=== PATIENT | male | born 1935 | race Caucasian/White ===

== ENCOUNTER 2018-04-29 08:51 | Emergency (ER) | payer MEDICARE, OTHER ==
[2018-04-29 09:13] LABS: BASOPHILS % (AUTO) 0.3 %; EOSINOPHILS # (AUTO) 0.1 10^3/uL (0.0-0.7); EOSINOPHILS % (AUTO) 1.3 %; HGB - HEMOGLOBIN 15.4 g/dL (14.0-18.0); LYMPHOCYTES # (AUTO) 2.3 10^3/uL (1.5-3.5); LYMPHOCYTES % (AUTO) 35.5 %; MEAN CORPUSCULAR HEMOGLOBIN 32.5 pg (27.0-31.0); MEAN CORPUSCULAR VOLUME 93.1 fL (80.0-94.0); MEAN PLATELET VOLUME 6.9 fL (7.4-11.4); MONOCYTES # (AUTO) 0.5 10^3/uL (0.0-1.0); MONOCYTES % (AUTO) 7.3 %; NEUTROPHILS # (AUTO) 3.6 10^3/uL (1.5-6.6); NEUTROPHILS % (AUTO) 55.6 %; PLT - PLATELET COUNT 108 10^3/uL (130-450); RED BLOOD COUNT 4.74 10^6/uL (4.70-6.10); RED CELL DISTRIBUTION WIDTH 14.9 % (12.0-15.0); WHITE BLOOD COUNT 6.5 x10^3/uL (4.8-10.8)
[2018-04-29 09:24] LABS: ALBUMIN 4.6 g/dL (3.2-5.5); ALBUMIN/GLOBULIN RATIO 1.8 (1.0-2.2); BILIRUBIN,TOTAL 1.9 mg/dL (0.2-1.0); CALCIUM 9.7 mg/dL (8.5-10.3); CREATININE 1.1 mg/dL (0.6-1.2); TOTAL PROTEIN 7.1 g/dL (6.7-8.2)
[2018-04-29] MEDS ORDERED: SODIUM CHLORIDE 0.9% 1,000 ML IV ONE (09:27)
--- NOTE | 2018-04-29 09:30 | ED Physician Documentation ---
PD HPI CHEST PAIN - Stated complaint Stated Complaint: CHEST PAIN - Chief complaint Chief Complaint: Cardiac - History obtained from History obtained from: Patient, Family - History of Present Illness Timing - onset: How many days ago (3) Timing - onset during: Rest Timing - duration: Seconds, Minutes Timing - details: Abrupt onset, Now resolved Quality: Pressure, Aching Location: Substernal, Left chest, Right chest, Left shoulder/arm, Right shoulder/arm Improved by: Rest Associated symptoms: Shortness of air (not associated with episodes) Similar symptoms before: Diagnosis (angina) Recently seen: Not recently seen - Additional information Additional information: 83-year-old male with a history of CLL and coronary artery disease who is status post stent placement has developed episodes of chest pain in various areas of his chest that are brief in nature lasting seconds to minutes and not associated with movement. He has had multiple episodes over the past 3 days and this morning he had an episode lasting about 10 minutes and he was able to take some nitroglycerin and the pain has resolved. He was last in to see his rn provider relations about 1 year ago where he had a nuclear medicine stress test. He is taking metoprolol and folic acid as the only medications for his illnesses. He reports that he has noted some exertional dyspnea over the past month. Weather outside recently has been extremely cold and the patient has been inside and heated house. Review of Systems Constitutional: denies: Fever, Chills, Myalgias, Fatigue Eyes: denies: Decreased vision Ears: denies: Ear pain Nose: denies: Rhinorrhea / runny nose, Congestion Throat: denies: Sore throat Cardiac: reports: Chest pain / pressure. denies: Palpitations, Pedal edema, Calf pain Respiratory: reports: Dyspnea. denies: Cough, Wheezing GI: denies: Abdominal Pain, Nausea, Vomiting : denies: Dysuria, Frequency Skin: denies: Rash Musculoskeletal: denies: Neck pain, Back pain, Extremity pain, Extremity swelling Neurologic: denies: Generalized weakness, Focal weakness, Numbness PD PAST MEDICAL HISTORY - Past Medical History Past Medical History: Yes Cardiovascular: Hypertension Other Past Medical History: Leukemia - Past Surgical History Past Surgical History: Yes Cardiovascular: Coronary stent - Present Medications Home Medications: Ambulatory Orders Medication Instructions Recorded Confirmed B Complex W-C No.20/Folic Acid 1 mg PO 04/29/18 [Mynephron Capsule] Calcium Carbonate [Calcium] 600 mg PO 04/29/18 RX: Aspirin 81 mg PO DAILY 04/29/18 04/29/18 RX: Metoprolol Tartrate 25 mg PO DAILY 04/29/18 04/29/18 RX: Nitroglycerin 0.4 mg SL Q5MIN PRN #40 tab.subl 04/29/18 RX: Nitroglycerin [Minitran (0.6 04/29/18 MG/HR)] - Allergies Allergies/Adverse Reactions: Allergies Allergy/AdvReac Type Severity Reaction Status Date / Time No Known Drug Allergies Allergy Verified 04/29/18 08:59 - Social History Does the pt smoke?: No Smoking Status: Former smoker Does the pt drink ETOH?: No Does the pt have substance abuse?: No - Immunizations Immunizations are current?: Yes PD ED PE NORMAL - Vitals Vital signs reviewed: Yes (hypertensive and bradycardic) - General General: Alert and oriented X 3, No acute distress, Well developed/nourished - HEENT HEENT: Atraumatic, PERRL, EOMI - Neck Neck: Supple, no meningeal sign, No bony TTP - Cardiac Cardiac: RRR, No murmur - Respiratory Respiratory: No respiratory distress, Other (diminished breath sounds with fine expritory wheeze) - Abdomen Abdomen: Soft, Non tender - Back Back: No CVA TTP, No spinal TTP - Derm Derm: Normal color, Warm and dry, No rash - Extremities Extremities: No deformity, No edema - Neuro Neuro: Alert and oriented X 3, managing partner 2-12 intact, No motor deficit, No sensory deficit, Normal speech Eye Opening: Spontaneous Motor: Obeys Commands Verbal: Oriented GCS Score: 15 - Psych Psych: Normal mood, Normal affect Results - Vitals Vitals: Vital Signs - 24 hr 04/29/18 04/29/18 04/29/18 08:56 09:33 10:58 Temperature 36.5 C Heart Rate 49 L 43 L 44 L Respiratory 16 21 18 Rate Blood Pressure 157/64 H 131/60 H 150/60 H O2 Saturation 100 100 99 04/29/18 04/29/18 04/29/18 11:33 11:38 11:57 Temperature Heart Rate 46 L 46 L 47 L Respiratory 17 16 100 H Rate Blood Pressure 150/58 H 139/59 H 139/56 H O2 Saturation 97 100 12 L 04/29/18 12:09 Temperature Heart Rate 43 L Respiratory 18 Rate Blood Pressure 139/59 H O2 Saturation 100 Oxygen O2 Source Room air - EKG (time done) 0900 Rate: Rate (enter#) (46) Rhythm: Sinus bradycardia Ischemia: Non specific changes Compare to prior EKG: Old EKG unavailable Computer interpretation: Agree with computer - Labs Labs: Laboratory Tests 04/29/18 04/29/18 04/29/18 09:00 09:00 09:00 WBC 6.5 RBC 4.74 Hgb 15.4 Hct 44.1 MCV 93.1 MCH 32.5 H MCHC 35.0 RDW 14.9 Plt Count 108 L MPV 6.9 L Neut # (Auto) 3.6 Lymph # (Auto) 2.3 [place] # (Auto) 0.5 Eos # (Auto) 0.1 Baso # (Auto) 0.0 Absolute Nucleated RBC 0.02 Nucleated RBC % 0.3 Manual Slide Review Indicated WBC Morphology 1+ REACTIVE LYMPHS Sodium 142 Potassium 4.2 Chloride 103 Carbon Dioxide 28 Anion Gap 11.0 BUN 26 H Creatinine 1.1 Estimated GFR (MDRD) 64 L Glucose 67 L Calcium 9.7 Total Bilirubin 1.9 H AST 33 ALT 29 Alkaline Phosphatase 87 Troponin I < 0.04 Total Protein 7.1 Albumin 4.6 Globulin 2.5 Albumin/Globulin Ratio 1.8 Lipase 42 - Rads (name of study) chest 2 views Radiology: Prelim report reviewed (Impression: Mildly coarsened interstitial opacities suggestive of chronic lung disease. No acute cardiopulmonary ab normality.), EMP read indepedently, See rad report Procedures - IVC sono (time) 0920 Bedside IVC sono: IVC measures (cm) (1.12), IVC collapsed c insp (cm) (complete), Dehydration (est 1 liter deficit) PD MEDICAL DECISION MAKING - ED course Complexity details: reviewed results, re-evaluated patient, considered differential, d/w patient, d/w family ED course: Previously well 83-year-old male with a history of coronary artery disease and CLL has developed intermittent chest pains and he has had some exertional dyspnea. I suspect he has stable angina and today he is found to have hypertension on arrival to the emergency department. I suspect his hypertension is related to his dehydration from the fornical organ reflex and he is administered saline. His pressure improves but his symptoms do not. He seems to have periodic short episodes of pain in various places on his chest. He has had a stress test in the last year and he will need follow up with his rn provider relations urgently and he is able to set this up prior to discharge. I am uncertain that his pains are cardiac related. Departure - Departure Disposition: 01 Home, Self Care Clinical Impression: Dehydration, Stable angina Condition: Stable Instructions: ED Chest Pain Angina Stable, ED Dehydration Follow-Up: Moody Currie MD [Primary Care Provider] - Prescriptions: RX: Nitroglycerin 0.4 mg SL Q5MIN PRN #40 tab.subl PRN Reason: chest pain Discharge Date/Time: 04/29/18 12:10
--- NOTE | 2018-04-29 10:07 | XRAY Report ---
Reason: chest pain Procedure Date: 04/29/2018 Accession Number: [id number] / [id number] Procedure: XR - Chest 2 View X-Ray CPT Code: 94432 FULL RESULT: EXAM: CHEST RADIOGRAPHY EXAM DATE: 04/29/2018 09:51 AM. CLINICAL HISTORY: Chest pain. COMPARISON: None. TECHNIQUE: 2 views. FINDINGS: Lungs/Pleura: There are mildly coarsened diffuse bilateral interstitial opacities, particularly at the lung bases. No focal opacities evident. No pleural effusion. No pneumothorax. Normal volumes. Mediastinum: Heart and mediastinal contours are unremarkable. There is mild atherosclerotic calcification of the aortic arch. Other: No acute osseous abnormality. IMPRESSION: Mildly coarsened interstitial opacities suggestive of chronic lung disease. No acute cardiopulmonary abnormality. RADIA
[2018-04-29 12:10] VITALS: BP 139/59
== END 2018-04-29 12:10 | disposition home or self-care (01) ==
LOC: ED 08:51
DX: I25.118 Atherosclerotic heart disease of native coronary artery with other forms of angina pectoris (principal); E86.0 Dehydration; I10 Essential (primary) hypertension; R00.1 Bradycardia, unspecified; R06.2 Wheezing; Z95.5 Presence of coronary angioplasty implant and graft; Z87.891 Personal history of nicotine dependence; Z85.6 Personal history of leukemia
CPT/HCPCS: 36415; 71046; 80053; 83690; 84484; 85025; 93005; 96360; 99283; 99284

== ENCOUNTER 2019-09-02 14:48 | Outpatient (CLI) | payer MEDICARE, OTHER ==
--- NOTE | 2019-09-02 17:09 | XRAY Report ---
PROCEDURE: Abdomen 1 View X-Ray INDICATIONS: HEMATURIA TECHNIQUE: 2 views of the abdomen were acquired. COMPARISON: CXR 04/29/2018. FINDINGS: Surgical changes and devices: None. Bowel: No pneumoperitoneum. Scattered small bowel and colonic gas. No dilated loops of bowel seen. Soft tissues: Small density at the left pelvic brim. No masses; visualized solid organ contours appe ar normal in size. No suspicious abdominal calcifications. Vascular calcifications. Phleboliths in t he pelvis. Bones: No suspicious bony abnormalities. Lung bases appear clear. IMPRESSION: Small density at the left pelvic brim could represent a kidney stone. -Consider further evaluation with CT KUB. Ultrasound could also be performed to evaluate for hydronep hrosis. Reviewed by: Juan David Eubanks MD on 09/02/2019 5:08 PM PDT Approved by: Juan David Eubanks MD on 09/02/2019 5:08 PM PDT Station ID: [id number]
[2019-09-02 20:07] LABS: ABSOLUTE RETICS # AUTO 0.151 10^6/uL (0.020-0.110); BASOPHILS % (AUTO) 0.3 %; EOSINOPHILS # (AUTO) 0.1 10^3/uL (0.0-0.7); EOSINOPHILS % (AUTO) 0.7 %; HGB - HEMOGLOBIN 14.4 g/dL (14.0-18.0); LYMPHOCYTES # (AUTO) 3.7 10^3/uL (1.5-3.5); LYMPHOCYTES % (AUTO) 48.7 %; MEAN CORPUSCULAR HGB CONC 33.5 g/dL (32.0-36.0); MEAN CORPUSCULAR VOLUME 98.6 fL (80.0-94.0); MEAN PLATELET VOLUME 9.5 fL (7.4-11.4); MONOCYTES # (AUTO) 0.5 10^3/uL (0.0-1.0); MONOCYTES % (AUTO) 6.1 %; NEUTROPHILS # (AUTO) 3.3 10^3/uL (1.5-6.6); NEUTROPHILS % (AUTO) 43.8 %; PLT - PLATELET COUNT 96 10^3/uL (130-450); RED BLOOD COUNT 4.36 10^6/uL (4.70-6.10); RED CELL DISTRIBUTION WIDTH 14.6 % (12.0-15.0); WHITE BLOOD COUNT 7.5 x10^3/uL (4.8-10.8)
[2019-09-02 20:14] LABS: ALBUMIN 4.4 g/dL (3.2-5.5); ALBUMIN/GLOBULIN RATIO 2.1 (1.0-2.2); BILIRUBIN,TOTAL 1.4 mg/dL (0.2-1.0); CALCIUM 9.4 mg/dL (8.5-10.3); TOTAL PROTEIN 6.5 g/dL (6.7-8.2)
== END 2019-09-02 23:59 | disposition home or self-care (01) ==
LOC: LAB.S 14:48
PROVIDERS: ATTEND Physician Assistant Medical
DX: R93.89 Abnormal findings on diagnostic imaging of other specified body structures (principal); C91.11 Chronic lymphocytic leukemia of B-cell type in remission; R35.0 Frequency of micturition; R31.9 Hematuria, unspecified
CPT/HCPCS: 36415; 74018; 80053; 85025; 85045; 87086; G0103; 84153

== ENCOUNTER 2021-01-03 11:13 | Inpatient (IN) | payer MEDICARE, OTHER ==
[2021-01-03 11:42] LABS: BASOPHILS % (AUTO) 0.1 %; EOSINOPHILS % (AUTO) 0.1 %; HCT - HEMATOCRIT 43.4 % (42.0-52.0); HGB - HEMOGLOBIN 14.3 g/dL (14.0-18.0); LYMPHOCYTES # (AUTO) 7.8 10^3/uL (1.5-3.5); LYMPHOCYTES % (AUTO) 50.5 %; MEAN CORPUSCULAR HEMOGLOBIN 31.4 pg (27.0-31.0); MEAN CORPUSCULAR HGB CONC 32.9 g/dL (32.0-36.0); MEAN CORPUSCULAR VOLUME 95.4 fL (80.0-94.0); MEAN PLATELET VOLUME 9.3 fL (7.4-11.4); MONOCYTES # (AUTO) 1.8 10^3/uL (0.0-1.0); MONOCYTES % (AUTO) 11.6 %; NEUTROPHILS # (AUTO) 5.6 10^3/uL (1.5-6.6); NEUTROPHILS % (AUTO) 36.3 %; PLT - PLATELET COUNT 67 10^3/uL (130-450); RED BLOOD COUNT 4.55 10^6/uL (4.70-6.10); RED CELL DISTRIBUTION WIDTH 14.8 % (12.0-15.0); WHITE BLOOD COUNT 15.5 x10^3/uL (4.8-10.8)
--- NOTE | 2021-01-03 11:48 | XRAY Report ---
PROCEDURE: Chest 1 View X-Ray INDICATIONS: Chest Pain TECHNIQUE: One view of the chest was acquired. COMPARISON: Chest x-ray 04/29/2018 FINDINGS: Surgical changes and devices: None. Lungs and pleura: No pleural effusions or pneumothorax. Emphysematous changes are present. Mediastinum: Mediastinal contours appear normal. Heart size is normal. Bones and chest wall: No suspicious bony lesions. Overlying soft tissues appear unremarkable. IMPRESSION: No acute pulmonary process. Reviewed by: Anay Jamison MD on 01/03/2021 11:47 AM PDT Approved by: Anay Jamison MD on 01/03/2021 11:47 AM PDT Station ID: [id number]
[2021-01-03 11:57] LABS: ALBUMIN 4.5 g/dL (3.2-5.5); ALBUMIN/GLOBULIN RATIO 2.6 (1.0-2.2); BILIRUBIN,TOTAL 1.6 mg/dL (0.2-1.0); CALCIUM 9.2 mg/dL (8.5-10.3); POTASSIUM 3.8 mmol/L (3.5-5.0); TOTAL PROTEIN 6.2 g/dL (6.7-8.2)
[2021-01-03 12:32] LABS: DIFFERENTIAL COMMENT MANUAL=AUTO DIFF; PLATELET ESTIMATE, MANUAL DECREASED (<130,000) (NORMAL); PLATELET MORPHOLOGY NORMAL APPEARANCE (NORMAL); RBC MORPHOLOGY (MULTIPLE) NORMAL APPEARANCE (NORMAL); WBC MORPHOLOGY (MULTIPLE) 1+ SMUDGE CELLS (NORMAL)
--- NOTE | 2021-01-03 12:34 | ED Physician Documentation ---
History of Present Illness - Stated complaint Stated Complaint: CHEST PX - Chief complaint Chief Complaint: Cardiac - History obtained from History obtained from: Patient - History of Present Illness Timing: Yesterday Pain level max: 6 Pain level now: 4 - Additonal information Additional information: Patient is an 86-year-old male who presents to the emergency department complaint of epigastric abdominal pain. He states that sometimes the pain hurts up high in his stomach, sometimes it hurts down low by his bladder. Patient states that the discomfort has been constant. He states that occasionally does radiate up towards the chest. Nothing seems to make it better or worse. No change with nitroglycerin. No change with Maalox or Mylanta. No nausea, vomiting, or constipation. Small diarrhea yesterday He states he has had similar episodes of the pain in the past, but they did not last this long and went away on their own. Does not feel like his cardiac chest pain. Denies any urinary symptoms. Review of Systems Ten Systems: 10 systems reviewed and negative Constitutional: denies: Fever, Chills Respiratory: denies: Cough GI: denies: Vomiting, Constipation, Hematemesis, Bloody / black stool : denies: Dysuria Skin: denies: Rash Musculoskeletal: denies: Neck pain, Back pain Neurologic: denies: Headache PD PAST MEDICAL HISTORY - Past Medical History Past Medical History: Yes Cardiovascular: Hypertension Respiratory: None Neuro: None Endocrine/Autoimmune: None GI: None : None HEENT: None Psych: None Musculoskeletal: None Derm: None - Past Surgical History Past Surgical History: Yes Cardiovascular: Coronary stent - Present Medications Home Medications: Ambulatory Orders Medication Instructions Recorded Confirmed Aspirin 81 mg PO DAILY 04/29/18 01/04/21 B Complex W-C No.20/Folic Acid 1 cap PO DAILY 04/29/18 01/04/21 [Mynephron Capsule] Calcium Carbonate [Calcium] 600 mg PO DAILY 04/29/18 01/04/21 Metoprolol Tartrate 25 mg PO DAILY 04/29/18 01/04/21 Nitroglycerin 0.4 mg SL Q5MIN PRN #40 tab.subl 04/29/18 01/04/21 Atorvastatin Calcium [Lipitor] 80 mg PO QPM 01/04/21 01/04/21 Multivitamin 1 tab PO DAILY 01/04/21 01/04/21 - Allergies Allergies/Adverse Reactions: Allergies Allergy/AdvReac Type Severity Reaction Status Date / Time No Known Drug Allergies Allergy Verified 01/03/21 11:19 - Social History Does the pt smoke?: No Smoking Status: Never smoker Does the pt drink ETOH?: No Does the pt have substance abuse?: No - Immunizations Immunizations are current?: Yes PD ED PE NORMAL - Vitals Vital signs reviewed: Yes - General General: Alert and oriented X 3, No acute distress, Well developed/nourished - HEENT HEENT: PERRL, Moist mucous membranes - Neck Neck: Supple, no meningeal sign - Cardiac Cardiac: RRR - Respiratory Respiratory: No respiratory distress, Clear bilaterally - Abdomen Abdomen: Normal bowel sounds, Soft, Non distended, Other (Mild tenderness to palpation left lower quadrant, mild tenderness to palpation right upper quadrant. No peritoneal signs) - Back Back: No spinal TTP - Derm Derm: Warm and dry - Extremities Extremities: No edema, No calf tenderness / cord - Neuro Neuro: Alert and oriented X 3 - Psych Psych: Normal mood, Normal affect Results - Vitals Vitals: Oxygen O2 Source Room air - EKG (time done) 1116 Rate: Rate (enter#) (71) Rhythm: NSR [place]: Normal Intervals: Normal PA QRS: Normal Ischemia: Non specific changes Compare to prior EKG: Unchanged from prior EKG - Labs Labs: Laboratory Tests 01/03/21 01/03/21 01/03/21 11:35 11:35 11:35 WBC 15.5 H RBC 4.55 L Hgb 14.3 Hct 43.4 MCV 95.4 H MCH 31.4 H MCHC 32.9 RDW 14.8 Plt Count 67 L MPV 9.3 Neut # (Auto) 5.6 Lymph # (Auto) 7.8 H Winkler # (Auto) 1.8 H Eos # (Auto) 0.0 Baso # (Auto) 0.0 Absolute Nucleated RBC 0.00 Band Neuts % (Manual) Not Reportable Abnorm Lymph % (Manual) Not Reportable Nucleated RBC % 0.0 Neutrophils # (Manual) Not Reportable Lymphocytes # (Manual) Not Reportable Monocytes # (Manual) Not Reportable Eosinophils # (Manual) Not Reportable Basophils # (Manual) Not Reportable Differential Comment MANUAL=AUTO DIFF WBC Morphology 1+ SMUDGE CELLS Platelet Estimate DECREASED (<130,000) Platelet Morphology NORMAL APPEARANCE RBC Morph Micro Appear NORMAL APPEARANCE Sodium 142 Potassium 3.8 Chloride 106 Carbon Dioxide 28 Anion Gap 8.0 BUN 15 Creatinine 1.0 Estimated GFR (MDRD) 71 L Glucose 115 H Calcium 9.2 Total Bilirubin 1.6 H AST 24 ALT 20 Alkaline Phosphatase 107 Troponin I High Sens 12.4 Total Protein 6.2 L Albumin 4.5 Globulin 1.7 L Albumin/Globulin Ratio 2.6 H Lipase 28 Nasal Adenovirus (PCR) Nasal B. parapertussis DNA (PCR) Nasal Coronavir 229E PCR Nasal Coronavir HKU1 PCR Nasal Coronavir NL63 PCR Nasal Coronavir OC43 PCR Nasal Enterovir/Rhinovir PCR Nasal Influenza B PCR Nasal Influenza A PCR Nasal Parainfluen 1 PCR Nasal Parainfluen 2 PCR Nasal Parainfluen 3 PCR Nasal Parainfluen 4 PCR Nasal RSV (PCR) Nasal B.pertussis DNA PCR Nasal C.pneumoniae (PCR) Mohit Human Metapneumo PCR Nasal M.pneumoniae (PCR) Nasal SARS-CoV-2 (PCR) 01/03/21 14:20 WBC RBC Hgb Hct MCV MCH MCHC RDW Plt Count MPV Neut # (Auto) Lymph # (Auto) Winkler # (Auto) Eos # (Auto) Baso # (Auto) Absolute Nucleated RBC Band Neuts % (Manual) Abnorm Lymph % (Manual) Nucleated RBC % Neutrophils # (Manual) Lymphocytes # (Manual) Monocytes # (Manual) Eosinophils # (Manual) Basophils # (Manual) Differential Comment WBC Morphology Platelet Estimate Platelet Morphology RBC Morph Micro Appear Sodium Potassium Chloride Carbon Dioxide Anion Gap BUN Creatinine Estimated GFR (MDRD) Glucose Calcium Total Bilirubin AST ALT Alkaline Phosphatase Troponin I High Sens Total Protein Albumin Globulin Albumin/Globulin Ratio Lipase Nasal Adenovirus (PCR) NOT DETECTED Nasal B. parapertussis DNA (PCR) NOT DETECTED Nasal Coronavir 229E PCR NOT DETECTED Nasal Coronavir HKU1 PCR NOT DETECTED Nasal Coronavir NL63 PCR NOT DETECTED Nasal Coronavir OC43 PCR NOT DETECTED Nasal Enterovir/Rhinovir PCR NOT DETECTED Nasal Influenza B PCR NOT DETECTED Nasal Influenza A PCR NOT DETECTED Nasal Parainfluen 1 PCR NOT DETECTED Nasal Parainfluen 2 PCR NOT DETECTED Nasal Parainfluen 3 PCR NOT DETECTED Nasal Parainfluen 4 PCR NOT DETECTED Nasal RSV (PCR) NOT DETECTED Nasal B.pertussis DNA PCR NOT DETECTED Nasal C.pneumoniae (PCR) NOT DETECTED Mohit Human Metapneumo PCR NOT DETECTED Nasal M.pneumoniae (PCR) NOT DETECTED Nasal SARS-CoV-2 (PCR) NOT DETECTED - Rads (name of study) Chest x-ray Radiology: Final report received, EMP read contemporaneously, See rad report (No acute abnormality) CT abd/pelvis Radiology: Final report received, EMP read contemporaneously, See rad report RUQ US Radiology: Final report received, EMP read contemporaneously, See rad report PD MEDICAL DECISION MAKING - ED course Complexity details: reviewed results, re-evaluated patient, considered differential (No ST elevation [place], no aortic dissection, no PE, no tension pneumothorax, no aortic aneurysm), d/w patient, d/w employment consultant ED course: 86-year-old male with epigastric and right upper quadrant pain. Also had some lower abdominal pain. Leukocytosis on laboratory testing. CT and ultrasound are both concerning for cholecystitis. Consulted Dr. Nowak, general surgery on- call, Dr. Bullard (gen surg) came and did the consult as he was free at the moment. He recommends admitting the patient to the hospitalist for IV antibiotics and to determine if the patient would be a good surgical candidate o r not for his cholecystitis. Discussed the case with Dr. Marie, hospitalist who accepts After this plan, Dr. Nowak did come and evaluate the patient in the emergency department and decided to take him to the operating room tonight. This document was made in part using voice recognition software. While efforts are made to proofread this document, sound alike and grammatical errors may occur. CT ABD/PELVIS 1. The gallbladder is distended. No radiopaque gallstones. There is pericholecystic fluid collection. The CT finding may be secondary to acute cholecystitis. Recommend clinical correlation. If clinically indicated, ultrasound may be helpful. 2. There is a 1.5 cm enhancing nodule adjacent to the gallbladder, likely an enlarged lymph node. Mildly enlarged periportal lymph nodes are also identified. The finding is nonspecific and most likely reactive. 3. Punctate calcifications of pancreas suggesting chronic pancreatitis. 4. Mild diverticulosis without diverticulitis. 5. Transitional anatomy in lumbar spine. 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 Degenerative changes in noted in lumbar spine. Right upper quadrant ultrasound: 1.Irregular appearance of the gallbladder, concerning for acute cholecystitis. Departure - Departure Disposition: ED Transfer to [facility] Clinical Impression: Acute cholecystitis Condition: Stable Discharge Date/Time: 01/03/21 18:50
[2021-01-03] MEDS ORDERED: IOVERSOL 320 100 ML VIAL IVP ONE ×2 (12:53→13:53)
[2021-01-03] MEDS ORDERED: PIPERACILLIN/TAZOBACTAM 3.375 GM in SODIUM CHLORIDE 0.9% MINIBAG 100 ML IV STA (14:07)
[2021-01-03] MEDS ORDERED: SODIUM CHLORIDE 0.9% 1,000 ML IV STA (14:07)
--- NOTE | 2021-01-03 14:15 | CT Report ---
PROCEDURE: Abdomen/Pelvis W INDICATIONS: LLQ abd pain CONTRAST: IV CONTRAST: Optiray 320 ml: 100 PO CONTRAST: *NO PO CONTRAST TECHNIQUE: After the administration of contrast, 5 mm thick sections acquired from the diaphragms to the sym physis. 5 mm thick coronal and sagittal reformats were acquired. For radiation dose reduction, the following was used: automated exposure control, adjustment of mA and/or kV according to patient size . COMPARISON: None. FINDINGS: Image quality: Excellent. ABDOMEN: Lung bases: No acute pulmonary opacities. Bilateral lower lobe interstitial thickening and subpleural scars and atelectasis. No pleural effusions. Heart size is normal. Solid organs: Liver is normal in size. There is increased enhancement in liver adjacent to the gall bladder fossa, probably related to hyperemia. Multiple low-density nodules are present in the liver, most likely hepatic cysts. Spleen is mildly enlarged measuring 13.5 cm in length. Gallbladder is distended. No radiopaque gallstones. There is a small amount of pericholecystic fluid collection. There is a 1.5 cm enhancing nodule adjacent to the gallbladder more likely mildly enlarg ed lymph node. Biliary system is non dilated. Punctate calcifications in pancreas consistent with chronic pancreatitis. Pancreas enhances normally. Bilateral adrenal thickening. No adrenal nodules. Kidneys demonstrate normal size and enhancement, w ithout hydronephrosis. Peritoneum and bowel: Bowel loops demonstrate normal wall thickness and caliber. There are a few co lonic diverticula. No CT findings to suggest acute diverticulitis. No free air. Nodes and vessels: There is a 1.3 x 1.9 cm periportal lymph node (series 3 image 21). A couple of s maller peripancreatic lymph nodes are also noted (series 6 image 21). Aorta and inferior vena cava a re normal in size. Severe atherosclerotic calcifications. Miscellaneous: No ventral hernias. PELVIS: Genitourinary: Bladder wall thickness is normal. Miscellaneous: No inguinal hernias with multiple small lymph nodes are identified, likely reactive. Bones: No suspicious bony lesions. No vertebral body compression fractures. Mild scoliosis. Degene rative changes are noted in the lumbar spine. Transitional anatomy with sacralization of L5 There is grade 1 anterolisthesis of L4 on L5 related to L4 pars defects. IMPRESSION: 1. The gallbladder is distended. No radiopaque gallstones. There is pericholecystic fluid collection. The CT finding may be secondary to acute cholecystitis. Recommend clinical correlation. If clinicall y indicated, ultrasound may be helpful. 2. There is a 1.5 cm enhancing nodule adjacent to the gallbladder, likely an enlarged lymph node. Mil dly enlarged periportal lymph nodes are also identified. The finding is nonspecific and most likely r eactive. 3. Punctate calcifications of pancreas suggesting chronic pancreatitis. 4. Mild diverticulosis without diverticulitis. 5. Transitional anatomy in lumbar spine. Grade 1 anterolisthesis of L4 on L5 secondary to pars defect s. Degenerative changes in noted in lumbar spine. The result was discussed with Dr. Keller. Reviewed by: Jessica Borrero MD on 01/03/2021 2:14 PM PDT Approved by: Jessica Borrero MD on 01/03/2021 2:14 PM PDT Station ID: [id number]
--- NOTE | 2021-01-03 15:01 | Ultrasound Report ---
PROCEDURE: Abdomen Limited INDICATIONS: RUQ abd pain TECHNIQUE: Real-time focused scanning was performed of the abdomen, with image documentation. COMPARISON: Reference is made to the CT abdomen of same day. TECHNIQUE: Sonographic evaluation of the abdomen was performed. Evaluation was targeted in the right upper quadrant. FINDINGS: AORTA: The visualized abdominal aorta is normal. IVC: The visualized IVC is normal. LIVER: The liver is normal in size and contour. No significant abnormality. Scattered hypoechoic le sions are seen, which demonstrate increased through transmission and are most consistent with cysts. The largest cyst is seen in the left hepatic lobe and measures up to 2.8 cm. PANCREAS: The visualized portions of the pancreas are normal. Gallbladder and biliary tree: Hydropic appearance of the gallbladder. Gallbladder wall thickening i s seen with trace pericholecystic fluid. A 6.8 mm luminal, echogenic focus is seen, most consistent w ith a polyp. Sludge is seen in the dependent portion of the gallbladder. The common bile duct measures up to 8.3 mm. RIGHT KIDNEY: Normal in appearance with no hydronephrosis. Measuring 10.6 cm in craniocaudal dimens ion. The renal cortex thickness measures 1.3 cm. No ascites. IMPRESSION: 1.Irregular appearance of the gallbladder, concerning for acute cholecystitis. Reviewed by: Jaison Cantor MD on 01/03/2021 2:59 PM PDT Approved by: Jaison Cantor MD on 01/03/2021 2:59 PM PDT Station ID: [id number]
--- NOTE | 2021-01-03 15:16 | CONSULTATION NOTE ---
Referring Provider Consult Date: 01/03/21 History of Present Illness - History Obtained From Records Reviewed: yes. very little available History obtained from: pt Exam Limitations: none - History of Present Illness HPI Comment/Other: Acute onset upper abdominal pain yesterday followed by n/v. No prior similar symptoms. Better today. He has history of copd and CAD. He has been seen prior at [facility] for angina. His emergency telecommunications dispatcher Dr Espinosa at [facility] has retired. He does not know the results of past stress tests. He has history of cardiac stents, bladder cancer, CLL. 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 History - Past Medical History Cardiovascular: reports: Hypertension Respiratory: reports: None Neuro: reports: None Endocrine/Autoimmune: reports: None GI: reports: None : reports: None HEENT: reports: None Psych: reports: None Musculoskeletal: reports: None Derm: reports: None MRSA Hx?: No - Past Surgical History Cardiovascular: reports: Coronary stent Meds/Allgy - Home Medications Home Medications: Ambulatory Orders Medication Instructions Recorded Confirmed Aspirin 81 mg PO DAILY 04/29/18 04/29/18 B Complex W-C No.20/Folic Acid 1 mg PO 04/29/18 [Mynephron Capsule] Calcium Carbonate [Calcium] 600 mg PO 04/29/18 Metoprolol Tartrate 25 mg PO DAILY 04/29/18 04/29/18 Nitroglycerin 0.4 mg SL Q5MIN PRN #40 tab.subl 04/29/18 Nitroglycerin [Minitran (0.6 04/29/18 MG/HR)] - Allergies Allergies/Adverse Reactions: Allergies Allergy/AdvReac Type Severity Reaction Status Date / Time No Known Drug Allergies Allergy Verified 01/03/21 11:19 Review of Systems - Other Findings Other Findings: 10 pt ros as above otherwise unremarkable. Exam - Vital Signs Reviewed Vital Signs: Yes Vital Signs: Vital Signs x48h Temp Pulse Resp BP Pulse Ox 01/03/21 12:02 48 L 21 148/60 H 100 01/03/21 11:19 36.6 C 54 L 22 143/57 H 100 - Physical Exam General Appearance: positive: No acute distress, Alert Eyes Bilateral: positive: PERRL, EOMI, No scleral icterus ENT: positive: No signs of dehydration Neck: positive: No JVD Respiratory: positive: No respiratory distress, Other (clear) Cardiovascular: positive: Bradycardia, Other Abdomen: positive: No distention, Other (minimal upper abdominal tenderness. benign abdomen) Neurologic/Psychiatric: positive: Oriented x3 Conclusion/Plan - Problem List (1) Acute cholecystitis Conclusion/Plan: He currently is not a [facility]. Fortunately he does not need urgent surgery. Much of his care has been through [facility]. Prior to considering surgery cardiology records would need to be reviewed. He feels better and will likely continue to feel better with medical management with light mostly liquid diet. Low fat diet for a couple weeks. Antibiotics. He states he has an appointment scheduled with a new emergency telecommunications dispatcher. Ideally he should see a surgeon through [facility] where he has had his cardiac care. If he is improving this may be done as an outpatient. If he improves and his pain c omes back I recommend he go to the ED at [facility]. This is discussed with him and his . - Lab Results Fish Bones: 01/03/21 11:35 01/03/21 11:35 - Diagnostic Imaging Results Diagnostic Imaging Results: positive: Read independently (inflammed gallbladder and sludge)
[2021-01-03 15:43] LABS: B. PARAPERTUSSIS- RESP PCR PAN NOT DETECTED; B. PERTUSSIS- RESP PCR PANEL NOT DETECTED; C. PNEUMONIAE- RESP PCR PANEL NOT DETECTED; CORONAVIRUS 229E-RESP PCR NOT DETECTED; CORONAVIRUS HKU1-RESP PCR NOT DETECTED; CORONAVIRUS NL63-RESP PCR NOT DETECTED; CORONAVIRUS OC43-RESP PCR NOT DETECTED; HUMAN METAPNEUMOVIRUS NOT DETECTED; INFLUENZA A- RESP PCR PANEL NOT DETECTED; INFLUENZA B - RESP PCR PANEL NOT DETECTED; M. PNEUMONIAE- RESP PCR PANEL NOT DETECTED; PARAINFLUENZA VIRUS 1 NOT DETECTED; PARAINFLUENZA VIRUS 2 NOT DETECTED; PARAINFLUENZA VIRUS 3 NOT DETECTED; PARAINFLUENZA VIRUS 4 NOT DETECTED; RHINOVIRUS/ENTEROVIRUS NOT DETECTED; RSV- RESP PCR PANEL NOT DETECTED; SARS-CoV-2 -RESP PCR PANEL NOT DETECTED
[2021-01-03] MEDS: PIPERACILLIN/TAZOBACTAM 3.375 GM in SODIUM CHLORIDE 0.9% MINIBAG 100 ML IV SCH ×2 (16:10→18:00)
[2021-01-03] MEDS: SODIUM CHLORIDE 0.9% 1,000 ML IV SCH (16:10)
[2021-01-03] MEDS ORDERED: NITROGLYCERIN SL 0.4 MG TABLET SL PRN (16:57)
--- NOTE | 2021-01-03 17:04 | HISTORY & PHYSICAL EXAMINATION ---
Chief Complaint - Chief Complaint Chief Complaint: right upper epigastric pain History of Present Illness - Admitted From Admitted From:: ER - History Obtained From Records Reviewed: [facility] History obtained from: pt Exam Limitations: no - History of Present Illness HPI Comment/Other: This is an 86-year-old male with A past medical history significant for hypertension, COPD, angina, CAD, Bladder cancer and CLL, who presents to the emergency department complaint of right upper epigastric abdominal pain. Pt report his pain located at right upper quadrant, pain sometimes was up to his stomach, up to his chest and even up to his bilateral shoulders, also sometimes pain hurts down by his bladder. His upper epigastric pain was not change with nitroglycerin. He denies fever, chill, nausea, vomiting, or constipation. He report he had small diarrhea on yesterday. CT and ultrasound of abdomen concern acute cholecystitis. Pt report his [employer] Dr. Espinosa made clear for him to have operation for his bladder cancer a few months ago. Pt had recent ECHO study which show EF was reserved at 54%. stress test on this year show stable. Discussed the case with surgeon, Dr. Nowak, she plan to have surgery on this afternoon for pt. Routine laboratory tests show patient had elevated WBC 15.5. Troponin is 12.4, and negative for PR, EKG did not show ischemic change. Patient is afebrile, heart rate is 54, otherwise patient is hemodynamic stable. ER already had Zosyn for pt. Discussed the care goal with the patient, patient hope to have full code. History - Past Medical History Cardiovascular: reports: Hypertension Respiratory: reports: None Neuro: reports: None Endocrine/Autoimmune: reports: None GI: reports: None : reports: None HEENT: reports: None Psych: reports: None Musculoskeletal: reports: None Derm: reports: None MRSA Hx?: No - Past Surgical History Cardiovascular: reports: Coronary stent - Family & Social History Family History: Mother: , Father: Family History Comment/Other: Patient report his father at age between 80- 90, his father have history of hepatitis. His mother at similar age 80-90, he is unknown in detail his mother medical condition beside she had cataract Social History Notes: Patient reported he quit cigarette smoking at his age 40, he denies alcohol or drug issue. Meds/Allgy - Home Medications Home Medications: Ambulatory Orders Medication Instructions Recorded Confirmed Aspirin 81 mg PO DAILY 04/29/18 04/29/18 B Complex W-C No.20/Folic Acid 1 mg PO 04/29/18 [Mynephron Capsule] Calcium Carbonate [Calcium] 600 mg PO 04/29/18 Metoprolol Tartrate 25 mg PO DAILY 04/29/18 04/29/18 Nitroglycerin 0.4 mg SL Q5MIN PRN #40 tab.subl 04/29/18 Nitroglycerin [Minitran (0.6 04/29/18 MG/HR)] - Allergies Allergies/Adverse Reactions: Allergies Allergy/AdvReac Type Severity Reaction Status Date / Time No Known Drug Allergies Allergy Verified 01/03/21 11:19 Review of Systems - Constitutional Constitutional: denies: Fever, Chills - Eyes Eyes: denies: Pain, Field loss, Vision loss - Ears, Nose & Throat Ears, Nose & Throat: denies: Ear pain - Cardiovascular Cariovascular: denies: Chest pain, Lightheadedness, Syncope, Exertional dyspnea, Decr. exercise tolerance - Respiratory Respiratory: denies: Cough, SOB at rest, SOB with exertion - Gastrointestinal Gastrointestinal: reports: Abdominal pain, Diarrhea. denies: Constipation, Nausea, Vomiting - Genitourinary Genitourinary: denies: Dysuria - Musculoskeletal Musculoskeletal: denies: Muscle pain - Integumentary Integumentary: denies: Rash - Neurological Neurological: denies: General weakness, Focal weakness, Headache, Dizziness, Numbness, Abnormal gait, Seizures, Incoordination, Slurred speech - Psychiatric Psychiatric: denies: Depression Exam - Vital Signs Vital Signs: Vital Signs x48h Temp Pulse Resp BP Pulse Ox 01/03/21 12:02 48 L 21 148/60 H 100 01/03/21 11:19 36.6 C 54 L 22 143/57 H 100 - Physical Exam General Appearance: positive: No acute distress, Alert. negative: Lethargic Eyes Bilateral: positive: Normal inspection, PERRL, No lid inflammation ENT: positive: ENT inspection nml, No signs of dehydration. negative: Purulent nasal drainage Neck: positive: Nml inspection, Trachea midline. negative: Thyromegaly, Tracheal deviation Respiratory: positive: Chest non-tender, No respiratory distress. negative: Wheezes, Rales Cardiovascular: positive: Regular rate & rhythm, No murmur. negative: Tachycardia, Bradycardia, Systolic murmur, Diastolic murmur Peripheral Pulses: positive: 2+ Abdomen: positive: Non-tender, Nml bowel sounds, No distention, Tenderness Back: positive: Nml inspection Skin: positive: Color nml, Warm, Dry. negative: Cyanosis Extremities: positive: Non-tender, Full ROM, Nml appearance. negative: Calf tenderness Neurologic/Psychiatric: positive: Oriented x3, Motor nml, Sensation nml. negative: Weakness, Sensory loss, Facial droop, Slurred/abnml speech, Depressed mood/affect Conclusion/Plan - Problem List (1) Acute cholecystitis Conclusion/Plan: Patient present right upper quadrant pain and radiated to bilaterally shoulders. CT and ultrasound both concern acute cholecystitis. pt had elevated WBC but he has no fever. ER already started with Zosyn, we will continue. consult with GI surgeon, plan to have Cholecystectomy on today afternoon. 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 Espinosa cleared for pt to have bladder cancer surgery at this year. pt's recently ECHO show EF is reserved 54%, and stress test showed stable. today troponin is at normal arrange, EKG did not show acute Ischemic change. pt has hx of CAD, likely pt has stable angina in the past. Revised cardiac risk index per Vu criteria show Estimated risk of adverse outcome with noncardiac surgery is low risk. Estimated PR, pulmonary edema, ventricular fibrillation, cardiac arrest or complete heart block is 0.9%. (3) Hx of bladder cancer Conclusion/Plan: Patient has a history of bladder cancer, he reported he had appointment next week Friday To see his oncologist. Advised patient continue follow-up. Now patient can urinate and stable. will order UA (4) Hx of chronic lymphocytic leukemia Conclusion/Plan: Stable, patient may continue follow-up his oncologist. He is elevated WBC which is likely reactive from his infection, acute cholecystitis. (5) HTN (hypertension) Conclusion/Plan: we will hold his Metoprolol, since his HR is at low arrange, Add hydralazine as needed. (6) Hx of coronary artery disease Conclusion/Plan: Patient's upper abdominal pain, and bilateral shoulder pain are likely caused by his acute Cholecystitis. EKG and troponin are negative for PR. pt had recently ECHO study show reserved EF and stress test was stable. resume home aspirin, continue tele monitor and vital monitor. (7) COPD (chronic obstructive pulmonary disease) Conclusion/Plan: pt report he took inhaler PRN at home, no home oxygen needed. pt has 100% O2 sats on room air. pt is stable, no acute respiratory distress. - Lab Results Fish Bones: 01/03/21 11:35 01/03/21 11:35 Core Measures - Anticipated LOS I expect patient to be DC'd or transferred within 96 hours.: Yes - DVT/VTE - Prophylaxis VTE/DVT Device ordered at admit?: Yes VTE/DVT Prophylaxis med ordered at admit?: Yes
[2021-01-03] MEDS ORDERED: PROPOFOL 200 MG/20 ML VIAL IVP ONE (17:13)
[2021-01-03] MEDS ORDERED: LIDOCAINE-MPF 2% 5 ML VIAL ONE (17:13)
--- NOTE | 2021-01-03 17:13 | HISTORY & PHYSICAL EXAMINATION ---
HPI - Admitted From Admitted from: ED - History Obtained From Records Reviewed: Old records reviewed History obtained from: Patient Exam limitations: No limitations - History of Present Illness Pain/Problem Location Description: RUQ pain Severity at the worst: reports: Moderate Pain Quality: reports: Sharp, Dull, Aching Context-Pain started w/: reports: Movement, Palpation, Position Timing: reports: Abrupt onset, Constant Duration: reports: Days: (1) HPI Comment/Other: Acute onset upper abdominal pain yesterday followed by n/v. No prior similar symptoms. Better today. He has history of copd and CAD. He has been seen prior at [facility] for angina. His smt technician Dr Espinosa at [facility] has retired. He does not know the results of past stress tests. He has history of cardiac stents, bladder cancer, CLL. 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 Mr. Butcher has had pain for approximately 24 hours now. In the interim, since he was seen by my partner Dr. Bullard, we have received more information regarding his past medical history and past surgical history as well as his cardiac history. He had bladder surgery 1 year ago and did well. He was last seen by his smt technician this past August and had a stress test that did not show ischemia and showed a reserved ejection fraction of 54%. His COPD is very well controlled and he rarely needs inhalers. He has been admitted by the medicine service and they feel he is an acceptable candidate for surgical intervention. He tells me that he was admonished by his oncologist that he should always be on guard for any signs of infection. PMH/PSH - Past Medical History Cardiovascular: positive: Hypertension, Coronary artery disease Respiratory: positive: COPD Neuro: positive: None Endocrine/Autoimmune: positive: None GI: positive: None : positive: Other (Bladder cancer) HEENT: positive: None Psych: positive: None Musculoskeletal: positive: None Derm: positive: None MRSA Hx?: No Other Past Medical History: CLL - Past Surgical History /SAND WHEELER: positive: Other (Bladder surgery 1 year ago) Cardiovascular: positive: Coronary stent Social & Family Hx - Living Situation Living Arrangement: At home (with ) - Social History Does the pt smoke?: No Smoking Status: Never smoker Does the pt drink ETOH?: No Does the pt have substance abuse?: No Meds/Allgy - Home Medications Home Medications: Ambulatory Orders Medication Instructions Recorded Confirmed Aspirin 81 mg PO DAILY 04/29/18 04/29/18 B Complex W-C No.20/Folic Acid 1 mg PO 04/29/18 [Mynephron Capsule] Calcium Carbonate [Calcium] 600 mg PO 04/29/18 Metoprolol Tartrate 25 mg PO DAILY 04/29/18 04/29/18 Nitroglycerin 0.4 mg SL Q5MIN PRN #40 tab.subl 04/29/18 Nitroglycerin [Minitran (0.6 04/29/18 MG/HR)] - Allergies Allergies/Adverse Reactions: Allergies Allergy/AdvReac Type Severity Reaction Status Date / Time No Known Drug Allergies Allergy Verified 01/03/21 11:19 Review of Systems - Constitutional Constitutional: reports: Fatigue, Chills, Malaise - Gastrointestinal Gastrointestinal: reports: Abdominal pain, Nausea. denies: Constipation, Diarrhea, Bloody stools, Vomiting - Neurological Neurological: denies: Focal weakness - All Other Systems All Other Systems: reports: Reviewed and negative Exam - Vital Signs Vital Signs: Vital Signs x48h Temp Pulse Resp BP Pulse Ox 01/03/21 12:02 48 L 21 148/60 H 100 01/03/21 11:19 36.6 C 54 L 22 143/57 H 100 - Physical Exam General Appearance: positive: No acute distress Eyes Bilateral: positive: Normal inspection, PERRL ENT: positive: ENT inspection nml Neurologic/Psychiatric: positive: Oriented x3 Results - Lab Results Fish Bones: 01/03/21 11:35 01/03/21 11:35 Other Lab Results: Lab Results x24hrs 01/03/21 01/03/21 01/03/21 Range/Units 14:20 11:35 11:35 WBC (4.8-10.8) x10^3/uL RBC (4.70-6.10) 10^6/uL Hgb (14.0-18.0) g/dL Hct (42.0-52.0) % MCV (80.0-94.0) fL MCH (27.0-31.0) pg MCHC (32.0-36.0) g/dL RDW (12.0-15.0) % Plt Count (130-450) 10^3/uL MPV (7.4-11.4) fL Neut # (Auto) (1.5-6.6) 10^3/uL Lymph # (Auto) (1.5-3.5) 10^3/uL Wright # (Auto) (0.0-1.0) 10^3/uL Eos # (Auto) (0.0-0.7) 10^3/uL Baso # (Auto) (0.0-0.1) 10^3/uL Absolute Nucleated RBC x10^3/uL Band Neuts % (Manual) Abnorm Lymph % (Manual) Nucleated RBC % /100WBC Neutrophils # (Manual) Lymphocytes # (Manual) Monocytes # (Manual) Eosinophils # (Manual) Basophils # (Manual) Differential Comment WBC Morphology (NORMAL) Platelet Estimate (NORMAL) Platelet Morphology (NORMAL) RBC Morph Micro Appear (NORMAL) Sodium 142 (135-145) mmol/L Potassium 3.8 (3.5-5.0) mmol/L Chloride 106 (101-111) mmol/L Carbon Dioxide 28 (21-32) mmol/L Anion Gap 8.0 (6-13) BUN 15 (6-20) mg/dL Creatinine 1.0 (0.6-1.2) mg/dL Estimated GFR (MDRD) 71 L (>89) Glucose 115 H (70-100) mg/dL Calcium 9.2 (8.5-10.3) mg/dL Total Bilirubin 1.6 H (0.2-1.0) mg/dL AST 24 (10-42) IU/L ALT 20 (10-60) IU/L Alkaline Phosphatase 107 (42-121) IU/L Troponin I High Sens 12.4 (2.3-19.7) ng/L Total Protein 6.2 L (6.7-8.2) g/dL Albumin 4.5 (3.2-5.5) g/dL Globulin 1.7 L (2.1-4.2) g/dL Albumin/Globulin Ratio 2.6 H (1.0-2.2) Lipase 28 (22-51) U/L Nasal Adenovirus (PCR) NOT DETECTED Nasal B. parapertussis DNA (PCR) NOT DETECTED Nasal Coronavir 229E PCR NOT DETECTED Nasal Coronavir HKU1 PCR NOT DETECTED Nasal Coronavir NL63 PCR NOT DETECTED Nasal Coronavir OC43 PCR NOT DETECTED Nasal Enterovir/Rhinovir PCR NOT DETECTED Nasal Influenza B PCR NOT DETECTED Nasal Influenza A PCR NOT DETECTED Nasal Parainfluen 1 PCR NOT DETECTED Nasal Parainfluen 2 PCR NOT DETECTED Nasal Parainfluen 3 PCR NOT DETECTED Nasal Parainfluen 4 PCR NOT DETECTED Nasal RSV (PCR) NOT DETECTED Nasal B.pertussis DNA PCR NOT DETECTED Nasal C.pneumoniae (PCR) NOT DETECTED Mohit Human Metapneumo PCR NOT DETECTED Nasal M.pneumoniae (PCR) NOT DETECTED Nasal SARS-CoV-2 (PCR) NOT DETECTED 01/03/21 Range/Units 11:35 WBC 15.5 H (4.8-10.8) x10^3/uL RBC 4.55 L (4.70-6.10) 10^6/uL Hgb 14.3 (14.0-18.0) g/dL Hct 43.4 (42.0-52.0) % MCV 95.4 H (80.0-94.0) fL MCH 31.4 H (27.0-31.0) pg MCHC 32.9 (32.0-36.0) g/dL RDW 14.8 (12.0-15.0) % Plt Count 67 L (130-450) 10^3/uL MPV 9.3 (7.4-11.4) fL Neut # (Auto) 5.6 (1.5-6.6) 10^3/uL Lymph # (Auto) 7.8 H (1.5-3.5) 10^3/uL Wright # (Auto) 1.8 H (0.0-1.0) 10^3/uL Eos # (Auto) 0.0 (0.0-0.7) 10^3/uL Baso # (Auto) 0.0 (0.0-0.1) 10^3/uL Absolute Nucleated RBC 0.00 x10^3/uL Band Neuts % (Manual) Not Reportable Abnorm Lymph % (Manual) Not Reportable Nucleated RBC % 0.0 /100WBC Neutrophils # (Manual) Not Reportable Lymphocytes # (Manual) Not Reportable Monocytes # (Manual) Not Reportable Eosinophils # (Manual) Not Reportable Basophils # (Manual) Not Reportable Differential Comment MANUAL=AUTO DIFF WBC Morphology 1+ SMUDGE CELLS (NORMAL) Platelet Estimate DECREASED (<130,000) (NORMAL) Platelet Morphology NORMAL APPEARANCE (NORMAL) RBC Morph Micro Appear NORMAL APPEARANCE (NORMAL) Sodium (135-145) mmol/L Potassium (3.5-5.0) mmol/L Chloride (101-111) mmol/L Carbon Dioxide (21-32) mmol/L Anion Gap (6-13) BUN (6-20) mg/dL Creatinine (0.6-1.2) mg/dL Estimated GFR (MDRD) (>89) Glucose (70-100) mg/dL Calcium (8.5-10.3) mg/dL Total Bilirubin (0.2-1.0) mg/dL AST (10-42) IU/L ALT (10-60) IU/L Alkaline Phosphatase (42-121) IU/L Troponin I High Sens (2.3-19.7) ng/L Total Protein (6.7-8.2) g/dL Albumin (3.2-5.5) g/dL Globulin (2.1-4.2) g/dL Albumin/Globulin Ratio (1.0-2.2) Lipase (22-51) U/L Nasal Adenovirus (PCR) Nasal B. parapertussis DNA (PCR) Nasal Coronavir 229E PCR Nasal Coronavir HKU1 PCR Nasal Coronavir NL63 PCR Nasal Coronavir OC43 PCR Nasal Enterovir/Rhinovir PCR Nasal Influenza B PCR Nasal Influenza A PCR Nasal Parainfluen 1 PCR Nasal Parainfluen 2 PCR Nasal Parainfluen 3 PCR Nasal Parainfluen 4 PCR Nasal RSV (PCR) Nasal B.pertussis DNA PCR Nasal C.pneumoniae (PCR) Mohit Human Metapneumo PCR Nasal M.pneumoniae (PCR) Nasal SARS-CoV-2 (PCR) - Diagnostic Imaging Results Diagnostic Imaging Results: positive: Final report reviewed Diagnostic Imaging Results Comments: PT NAME: DEIRDRE BUTCHER MR#: [id number] REG ER/ED AGE: 86 CI DT/TM: 01/03/21 PCP: : 1935 ATT: SEX: M ORD: Jez sandhu MD EXAM: [id number] US/ABDLTD ([id number]) PROCEDURE: Abdomen Limited INDICATIONS: RUQ abd pain TECHNIQUE: Real-time focused scanning was performed of the abdomen, with image documentation. COMPARISON: Reference is made to the CT abdomen of same day. TECHNIQUE: Sonographic evaluation of the abdomen was performed. Evaluation was targeted in the right upper quadrant. FINDINGS: AORTA: The visualized abdominal aorta is normal. IVC: The visualized IVC is normal. LIVER: The liver is normal in size and contour. No significant abnormality. Scattered hypoechoic lesions are seen, which demonstrate increased through transmission and are most consistent with cysts. The largest cyst is seen in the left hepatic lobe and measures up to 2.8 cm. PANCREAS: The visualized portions of the pancreas are normal. Gallbladder and biliary tree: Hydropic appearance of the gallbladder. Gallbladder wall thickening is seen with trace pericholecystic fluid. A 6.8 mm luminal, echogenic focus is seen, most consistent with a polyp. Sludge is seen in the dependent portion of the gallbladder. The common bile duct measures up to 8.3 mm. RIGHT KIDNEY: Normal in appearance with no hydronephrosis. Measuring 10.6 cm in craniocaudal dimension. The renal cortex thickness measures 1.3 cm. No ascites. IMPRESSION: 1.Irregular appearance of the gallbladder, concerning for acute cholecystitis. PT NAME: DEIRDRE BUTCHER MR#: [id number] REG ER/ED AGE: 86 CI DT/TM: 01/03/21 PCP: : 1935 ATT: SEX: M ORD: Jez sandhu MD EXAM: [id number] CT/ABPEW ([id number]) PROCEDURE: Abdomen/Pelvis W INDICATIONS: LLQ abd pain CONTRAST: IV CONTRAST: Optiray 320 ml: 100 PO CONTRAST: *NO PO CONTRAST TECHNIQUE: After the administration of contrast, 5 mm thick sections acquired from the diaphragms to the symphysis. 5 mm thick coronal and sagittal reformats were acquired. For radiation dose reduction, the following was used: automated exposure control, adjustment of mA and/or kV according to patient size. COMPARISON: None. FINDINGS: Image quality: Excellent. ABDOMEN: Lung bases: No acute pulmonary opacities. Bilateral lower lobe interstitial thickening and subpleural scars and atelectasis. No pleural effusions. Heart size is normal. Solid organs: Liver is normal in size. There is increased enhancement in liver adjacent to the gallbladder fossa, probably related to hyperemia. Multiple low-density nodules are present in the liver, most likely hepatic cysts. Spleen is mildly enlarged measuring 13.5 cm in length. Gallbladder is distended. No radiopaque gallstones. There is a small amount of pericholecystic fluid collection. There is a 1.5 cm enhancing nodule adjacent to the gallbladder more likely mildly enlarged lymph node. Biliary system is non dilated. Punctate calcifications in pancreas consistent with chronic pancreatitis. Pancreas enhances normally. Bilateral adrenal thickening. No adrenal nodules. Kidneys demonstrate normal size and enhancement, without hydronephrosis. Peritoneum and bowel: Bowel loops demonstrate normal wall thickness and caliber. There are a few colonic diverticula. No CT findings to suggest acute diverticulitis. No free a ir. Nodes and vessels: There is a 1.3 x 1.9 cm periportal lymph node (series 3 image 21). A couple of smaller peripancreatic lymph nodes are also noted (series 6 image 21). Aorta and inferior vena cava are normal in size. Severe atherosclerotic calcifications. Miscellaneous: No ventral hernias. PELVIS: Genitourinary: Bladder wall thickness is normal. Miscellaneous: No inguinal hernias with multiple small lymph nodes are identified, likely reactive. Bones: No suspicious bony lesions. No vertebral body compression fractures. Mild scoliosis. Degenerative changes are noted in the lumbar spine. Transitional anatomy with sacralization of L5 There is grade 1 anterolisthesis of L4 on L5 related to L4 pars defects. IMPRESSION: 1. The gallbladder is distended. No radiopaque gallstones. There is pericholecystic fluid collection. The CT finding may be secondary to acute cholecystitis. Recommend clinical correlation. If clinically indicated, ultrasound may be helpful. 2. There is a 1.5 cm enhancing nodule adjacent to the gallbladder, likely an enlarged lymph node. Mildly enlarged periportal lymph nodes are also identified. The finding is nonspecific and most likely reactive. 3. Punctate calcifications of pancreas suggesting chronic pancreatitis. 4. Mild diverticulosis without diverticulitis. 5. Transitional anatomy in lumbar spine. 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 Degenerative changes in noted in lumbar spine. The result was discussed with Dr. Keller. Reviewed by: Jessica Borrero MD on 01/03/2021 2:14 PM PDT Impression/Plan - Problem List Problem List: Cholecystitis in the setting of an 86-year-old gentleman with stable coronary artery disease and well-controlled COPD as well as history of CLL. He has been admitted by the medicine service. I spoke with him at length. We discussed the risks, benefits, and alternatives of cholecystectomy including a cholecystostomy tube. After careful consideration of all the risks and benefits, he is expressed a verbal and written consent for cholecystectomy.
[2021-01-03] MEDS ORDERED: fentaNYL 100 MCG/2 ML VIAL ONE ×2 (17:16→18:31)
[2021-01-03] MEDS ORDERED: SUGAMMADEX 200 MG/2 ML VIAL IVP ONE (17:18)
[2021-01-03] MEDS ORDERED: ONDANSETRON 4 MG/2 ML VIAL ONE (17:18)
[2021-01-03] MEDS ORDERED: fentaNYL 100 MCG/2 ML VIAL IVP PRN (17:23)
[2021-01-03] MEDS ORDERED: ePHEDrine 50 MG/ML VIAL IVP PRN (17:23)
[2021-01-03] MEDS ORDERED: ATROPINE ABBOJECT 1 MG/10 ML SYRINGE IVP PRN (17:23)
[2021-01-03] MEDS ORDERED: ONDANSETRON 4 MG/2 ML VIAL IVP PRN (17:23)
[2021-01-03] MEDS ORDERED: METOCLOPRAMIDE 10 MG/2 ML VIAL IVP PRN (17:23)
[2021-01-03] MEDS ORDERED: MORPHINE 2 MG/ML CARPUJECT IVP PRN (17:23)
[2021-01-03] MEDS ORDERED: HYDROmorphone 0.5 MG/0.5 ML SYRINGE IVP PRN (17:23)
[2021-01-03] MEDS ORDERED: NALOXONE 0.4 MG/ML VIAL IVP PRN (17:23)
--- NOTE | 2021-01-03 17:23 | ANESTHESIA ---
Pre-Anesthesia VS, & Labs - Diagnosis acute cholecystitis - Procedure lap ja Vital Signs: Temp Pulse Resp BP Pulse Ox 36.6 C 48 L 21 148/60 H 100 01/03/21 11:19 01/03/21 12:02 01/03/21 12:02 01/03/21 12:02 01/03/21 12:02 Height: 6 ft Weight (kg): 72.575 kg Body Mass Index: 21.7 BMI Classification: Healthy weight - NPO >8 hours - Lab Results Current Lab Results: Laboratory Tests 01/03/21 11:35: Troponin I High Sens 12.4 01/03/21 11:35: Sodium 142, Potassium 3.8, Chloride 106, Carbon Dioxide 28, Anion Gap 8.0, BUN 15, Creatinine 1.0, Estimated GFR (MDRD) 71 L, Glucose 115 H, Calcium 9.2, Total Bilirubin 1.6 H, AST 24, ALT 20, Alkaline Phosphatase 107, Total Protein 6.2 L, Albumin 4.5, Globulin 1.7 L, Albumin/Globulin Ratio 2.6 H, Lipase 28 01/03/21 11:35: WBC 15.5 H, RBC 4.55 L, Hgb 14.3, Hct 43.4, MCV 95.4 H, MCH 31.4 H, MCHC 32.9, RDW 14.8, Plt Count 67 L, MPV 9.3, Neut # (Auto) 5.6, Lymph # (Auto) 7.8 H, [place] # (Auto) 1.8 H, Eos # (Auto) 0.0, Baso # (Auto) 0.0, Absolute Nucleated RBC 0.00, Band Neuts % (Manual) Not Reportable, Abnorm Lymph % (Manual) Not Reportable, Nucleated RBC % 0.0, Neutrophils # (Manual) Not Reportable, Lymphocytes # (Manual) Not Reportable, Monocytes # (Manual) Not Reportable, Eosinophils # (Manual) Not Reportable, Basophils # (Manual) Not Reportable, Differential Comment MANUAL=AUTO DIFF, WBC Morphology 1+ SMUDGE CELLS, Platelet Estimate DECREASED (<130,000), Platelet Morphology NORMAL APPEARANCE, RBC Morph Micro Appear NORMAL APPEARANCE Fish Bones: 01/03/21 11:35 01/03/21 11:35 Home Medications and Allergies Active Medications Acetaminophen (Acetaminophen 325 Mg Tablet) 650 mg PO Q4HR PRN PRN Reason: Pain 1 to 4 Aspirin (Aspirin Chew 81 Mg Tablet) 81 mg PO DAILY [facility] Enoxaparin Sodium (Enoxaparin 40 Mg/0.4 Ml Syringe) 40 mg SUBQ DAILY [facility] Hydralazine HCl (Hydralazine Inj 20 Mg/Ml Vial) 10 mg IVP Q6H PRN PRN Reason: Hypertensive Emergency Sodium Chloride (Normal Saline 0.9%) 1,000 mls @ 150 mls/hr IV .Q6H40M STA Stop: 01/03/21 20:46 Last Admin: 01/03/21 16:19 Dose: 150 mls/hr Documented by: Sodium Chloride (Normal Saline 0.9%) 1,000 mls @ 100 mls/hr IV .Q10H DANA Piperacillin Sod/Tazobactam (Sod 3.375 gm/ Sodium Chloride) 100 mls @ 25 mls/hr IV Q8H DANA Morphine Sulfate (Morphine 2 Mg/Ml Carpuject) 2 mg IVP Q2HR PRN PRN Reason: Pain 8 to 10 Nitroglycerin (Nitroglycerin Sl 0.4 Mg Tablet) 0.4 mg SL Q5MIN PRN PRN Reason: Chest Pain Ondansetron HCl (Ondansetron 4 Mg/2 Ml Vial) 4 mg IVP Q6HR PRN PRN Reason: Nausea / Vomiting Oxycodone HCl (Oxycodone 5 Mg Tablet) 5 mg PO Q4HR PRN PRN Reason: Pain 5 to 7 Sodium Chloride (Sodium Chloride Flush 0.9% 10 Ml Syringe) 10 ml IVP PRN PRN PRN Reason: NEEDED PER PROVIDER ORDERS Sodium Chloride (Sodium Chloride Flush 0.9% 10 Ml Syringe) 10 ml IVP 0100,0900,1700 [facility] Aspirin 81 mg PO DAILY 04/29/18 B Complex W-C No.20/Folic Acid [Mynephron Capsule] 1 mg PO 04/29/18 Calcium Carbonate [Calcium] 600 mg PO 04/29/18 Metoprolol Tartrate 25 mg PO DAILY 04/29/18 Nitroglycerin [Minitran (0.6 MG/HR)] 04/29/18 Allergies/Adverse Reactions: Allergies Allergy/AdvReac Type Severity Reaction Status Date / Time No Known Drug Allergies Allergy Verified 01/03/21 11:19 Anes History & Medical History - Anesthetic History Anesthesia Complications: reports: No previous complications Family history of Anesthesia Complications: Denies Family history of Malignant Hyperthermia: Denies - Medical History Cardiovascular: reports: Hypertension, Coronary artery disease Pulmonary: reports: COPD Gastrointestinal: reports: None Urinary: reports: Other (Bladder cancer) Neuro: reports: None Musculoskeletal: reports: None Endocrine/Autoimmune: reports: None Blood Disorders: reports: None Skin: reports: None Smoking Status: Never smoker Other Past Medical History: CLL - Surgical History Cardiothoracic: reports: Coronary stent Gynecologic: reports: Other (Bladder surgery 1 year ago) Exam General: Alert, Oriented x3, Cooperative Dental: Dentures full Upper, Dentures full Lower Mouth Openin Fingerbreadth Neck Mobility: Normal Mallampati classification: II Thyromental Distance: 4-6 cm Respiratory: Lungs clear Cardiovascular: Regular rate Plan Anesthesia Type: General Consent for Procedure(s) Verified and Reviewed: Yes Code Status: Attempt Resuscitation ASA classification: 3-Severe systemic disease Is this case an emergency?: Yes
[2021-01-03] MEDS ORDERED: BUPIVACAINE 0.5% PF 10 ML VIAL ONE (17:32)
[2021-01-03] MEDS ORDERED: LIDOCAINE 2%-EPI 1:100000 20 ML MDV ONE (17:32)
[2021-01-03] MEDS ORDERED: ALBUTEROL NEB 2.5 MG/3 ML INH PRN (17:42)
[2021-01-03] MEDS ORDERED: IPRATROPIUM/ALBUTEROL 3 ML NEB INH PRN (17:42)
[2021-01-03] MEDS ORDERED: LACTATED RINGERS 1,000 ML IV SCH (18:00)
[2021-01-03] MEDS ORDERED: LIDOCAINE 2%-EPI 1:100000 20 ML MDV SUBQ ONE (18:25)
[2021-01-03] MEDS ORDERED: BUPIVACAINE 0.5% PF 10 ML VIAL SUBQ ONE (18:25)
[2021-01-03] MEDS ORDERED: SODIUM CHLORIDE 0.9% 1,000 ML IV ONE (19:07)
--- NOTE | 2021-01-03 19:07 | OPERATIVE REPORT ---
Operative Report - General Admit Date: 01/03/21 Procedure Date: 01/03/21 Planned Procedure: Laparoscopic cholecystectomy Pre-Op Diagnosis: Acute cholecystitis Procedure Performed: Laparoscopic cholecystectomy Post Op Diagnosis: Acute cholecystitis with hydrops of the gallbladder - Procedure Note Primary Surgeon: She Anesthesia Provider: RANI Abreu Anesthesia Technique: General ET tube, Local Pathology: Gall bladder to pathology in formalin Estimated Blood Loss (mL): 150 Drain/Tube Type: Steven drain (19 F Steven drain in the gall bladder fossa) Indications: Acute cholecystitis and RUQ pain Findings: Hydrops of the gall bladder Complications: None apparent - Other Other Information/Narrative: After obtaining informed consent the patient is brought to the operating room and placed in the supine position on the operating table. Following successful induction of general endotracheal anesthesia, appropriate padding of all bony prominences, and placement of appropriate monitors, the abdomen was prepped and draped in the standard surgical fashion. A timeout was held per scope protocol. All elements of the surgical safety checklist were followed before, during, and after the procedure. Following infiltration with local anesthetic to create a field block, an incision was created inferior to the umbilicus and carried down through the skin and subcutaneous tissue to reveal the fascia below. 2-0 Vicryl retention sutures were placed on either side of the midline and the abdomen was entered under direct vision using a 15 blade scalpel. A 10 mm blunt Rahman balloon trocar was placed in the abdominal cavity and it was insufflated to 15 mmHg pressure. The patient was placed in reverse Trendelenburg position with the left side rotated toward the floor. A second trocar, 5 mm, was placed in the midepigastrium under direct vision and after anesthetization of the surrounding skin.A third trocar, also 5 mm was placed in the right upper quadrant for retraction of the gallbladder and a fourth 1 just medial to that as a working port as well. The gallbladder was examined. It was noted to be distended and edematous.Appearance was consistent with hydrops.It was adherent to the surrounding structures including the omentum, duodenum, and the right colon. These structures were carefully dissected free from the surface of the gallbladder using a mixture of blunt and sharp dissection. The fundus of the gallbladder was then grasped and elevated up over the liver revealing the chol ecysto hepatoduodenal ligament. The neck of the gallbladder was retracted laterally and the cystic duct and artery were carefully identified. The entire wall of the gallbladder was quite thickened and difficult to grasp it. A tenaculum was used eventually to hold the fundus. This resulted in puncturing the gallbladder releasing a large amount of hydropic fluid and gross purulence.The common duct was visualized but not skeletonized. The cystic duct was clipped 3 times proximally and once distally and divided, the cystic artery was clipped twice proximally, once distally, and divided. The gallbladder was then liberated from its bed in the liver using cautery. It was placed in an Endo Catch bag and removed via the umbilical port with a camera in the epigastric position. The camera was replaced in the umbilical position and the abdomen was checked for hemostasis. It was irrigated with warm saline solution and aspirated free of all fluid and particulate matter. Surgicel was placed in the gallbladder fossa to assure hemostasis. A 19 [place] Steven drain was placed in the gallbladder fossa and brought out from the right upper quadrant to prevent recollection of purulent material. The trochars were then removed under direct vision and the abdomen desufflated. The umbilical incision was closed with interrupted Vicryl suture and Monocryl was placed in all of the skin incisions. All sponge, needle, and instrument counts were correct at the conclusion of the case. The patient was allowed awaken from anesthesia without difficulty and taken to the postanesthesia care unit in good condition.
[2021-01-03] MEDS ORDERED: LACTATED RINGERS 1,000 ML IV ONE ×2 (19:10→19:36)
--- NOTE | 2021-01-03 19:42 | ANESTHESIA POST OP EVALUATION ---
Anesthesia Post Eval - Post Anesthesia Eval Vitals: Last Vital Signs Temp 37.9 C 01/03/21 19:35 Pulse 67 01/03/21 19:35 Resp 20 01/03/21 19:35 BP 172/63 H 01/03/21 19:35 Pulse Ox 96 01/03/21 19:35 CV Function Including HR & BP: Stable Pain Control: Satisfactory Nausea & Vomiting: Negative Mental Status: Baseline Respiratory Status: Airway Patent Hydration Status: Satisfactory Anesthesia Complications: None
[2021-01-03] MEDS: MORPHINE 2 MG/ML CARPUJECT IVP PRN ×2 (20:33→22:36)
[2021-01-03] MEDS: hydrALAZINE INJ 20 MG/ML VIAL IVP PRN (20:51)
[2021-01-03] MEDS: SODIUM CHLORIDE FLUSH 0.9% 10 ML SYRINGE IVP SCH (21:03)
[2021-01-03 21:55] LABS: BILIRUBIN,URINE NEGATIVE (NEGATIVE); GLUCOSE, URINE (UA) NEGATIVE (NEGATIVE); KETONES,URINE (UA) NEGATIVE (NEGATIVE); LEUKOCYTE ESTERASE, URINE NEGATIVE (NEGATIVE); NITRITE,URINE NEGATIVE (NEGATIVE); OCCULT BLOOD,URINE TRACE-LYSE (NEGATIVE); PH,URINE 7.5 PH (5.0-7.5); PROTEIN,URINE TRACE mg/dL (NEGATIVE); UROBILINOGEN,URINE 0.2 (NORMAL) E.U./dL (NORMAL)
[2021-01-03 22:03] LABS: BACTERIA,URINE Rare /HPF (None Seen); CLARITY,URINE CLEAR (CLEAR); RBC,URINE 0-5 /HPF (0-5); SQUAMOUS EPITHELIAL CELL,UR RARE Squamous (<= Few); WBC,URINE 0-3 /HPF (0-3)
[2021-01-04] MEDS: ACETAMINOPHEN 325 MG TABLET PO PRN ×2 (00:16→07:26)
[2021-01-04] MEDS: oxyCODONE 5 MG TABLET PO PRN ×4 (00:17→20:56)
[2021-01-04] MEDS: MORPHINE 2 MG/ML CARPUJECT IVP PRN ×4 (02:42→22:46)
[2021-01-04] MEDS: SODIUM CHLORIDE FLUSH 0.9% 10 ML SYRINGE IVP SCH ×3 (03:45→15:57)
[2021-01-04] MEDS: PIPERACILLIN/TAZOBACTAM 3.375 GM in SODIUM CHLORIDE 0.9% MINIBAG 100 ML IV SCH ×3 (03:59→17:02)
[2021-01-04] MEDS: SODIUM CHLORIDE 0.9% 1,000 ML IV SCH (04:01)
[2021-01-04 06:11] LABS: BASOPHILS % (AUTO) 0.2 %; EOSINOPHILS % (AUTO) 0.8 %; HCT - HEMATOCRIT 41.8 % (42.0-52.0); HGB - HEMOGLOBIN 13.6 g/dL (14.0-18.0); LYMPHOCYTES % (AUTO) 45.5 %; MEAN CORPUSCULAR HEMOGLOBIN 31.3 pg (27.0-31.0); MEAN CORPUSCULAR HGB CONC 32.5 g/dL (32.0-36.0); MEAN CORPUSCULAR VOLUME 96.3 fL (80.0-94.0); MEAN PLATELET VOLUME 9.8 fL (7.4-11.4); MONOCYTES % (AUTO) 9.8 %; NEUTROPHILS % (AUTO) 42.6 %; PLT - PLATELET COUNT 70 10^3/uL (130-450); RED BLOOD COUNT 4.34 10^6/uL (4.70-6.10); RED CELL DISTRIBUTION WIDTH 15.7 % (12.0-15.0); WHITE BLOOD COUNT 28.7 x10^3/uL (4.8-10.8)
[2021-01-04 06:20] LABS: ALBUMIN 3.7 g/dL (3.2-5.5); ALBUMIN/GLOBULIN RATIO 1.9 (1.0-2.2); BILIRUBIN,TOTAL 2.7 mg/dL (0.2-1.0); CALCIUM 8.6 mg/dL (8.5-10.3); POTASSIUM 4.6 mmol/L (3.5-5.0); TOTAL PROTEIN 5.7 g/dL (6.7-8.2)
[2021-01-04 06:24] LABS: ABNORMAL LYMPHS % (MANUAL) 0 %
[2021-01-04 07:47] LABS: BAND NEUTROPHILS % (MANUAL) 3 %; LYMPHOCYTES # (MANUAL) 13.2 10^3/uL (1.5-3.5); LYMPHOCYTES % (MANUAL) 35 %; MONOCYTES # (MANUAL) 1.4 10^3/uL (0.0-1.0); NEUTROPHILS # (MANUAL) 14.1 10^3/uL (1.5-6.6); RBC MORPHOLOGY (MULTIPLE) NORMAL APPEARANCE (NORMAL); REACTIVE LYMPHS % (MANUAL) 11 %
[2021-01-04 07:48] LABS: DIFFERENTIAL COMMENT MANUAL DIFFERENTIAL; PLATELET ESTIMATE, MANUAL NORMAL (130-450,000) (NORMAL); PLATELET MORPHOLOGY NORMAL APPEARANCE (NORMAL); WBC MORPHOLOGY (MULTIPLE) 2+ SMUDGE CELLS (NORMAL)
[2021-01-04] MEDS: ASPIRIN CHEW 81 MG TABLET PO SCH (09:51)
--- NOTE | 2021-01-04 10:56 | PROVIDER PROGRESS NOTE ---
Assessment/Plan - Problem List (1) Acute cholecystitis Assessment/Plan: 01/04, s/p care day one from cholecystectomy. pt has low degree fever on last night, WBC was elevated to 28.7, but pt Is hemodynamic stable. per surgery report Gallbladder releasing large amount of hydropic fluid and gross purulence. we order blood culture, continue Zosyn, IVF, Continue pain control, order incentive spirometer, nurse continue drainage. when start with diet for pt per surgeon Patient present right upper quadrant pain and radiated to bilaterally shoulders. CT and ultrasound both concern acute cholecystitis. pt had elevated WBC but he has no fever. ER already started with Zosyn, we will continue. consult with GI surgeon, plan to have Cholecystectomy on today afternoon. We will continue pain control, continue Zosyn and we will follow up with surgeon (2)sepsis Patient present low degree fever, significant had elevated WBC, Cholecystitis with gross purulence. 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 Espinosa cleared for pt to have bladder cancer surgery at this year. pt's recently ECHO show EF is reserved 54%, and stress test showed stable. today troponin is at normal arrange, EKG did not show acute Ischemic change. pt has hx of CAD, likely pt has stable angina in the past. Revised cardiac risk index per Vu criteria show Estimated risk of adverse outcome with noncardiac surgery is low risk. Estimated NJ, pulmonary edema, ventricular fibrillation, cardiac arrest or complete heart block is 0.9%. (4) Hx of bladder cancer Conclusion/Plan: Patient has a history of bladder cancer, he reported he had appointment next week Friday To see his oncologist. Advised patient continue follow-up. Now patient can urinate and stable. will order UA (5) Hx of chronic lymphocytic leukemia Conclusion/Plan: Stable, patient may continue follow-up his oncologist. He is elevated WBC which is likely reactive from his infection, acute cholecystitis. (6) HTN (hypertension) Conclusion/Plan: we will hold his Metoprolol, since his HR is at low arrange, Add hydralazine as needed. (7) Hx of coronary artery disease Conclusion/Plan: Patient's upper abdominal pain, and bilateral shoulder pain are likely caused by his acute Cholecystitis. EKG and troponin are negative for NJ. pt had recently ECHO study show reserved EF and stress test was stable. resume home aspirin, continue tele monitor and vital monitor. (8) COPD (chronic obstructive pulmonary disease) Conclusion/Plan: pt report he took inhaler PRN at home, no home oxygen needed. pt has 100% O2 sats on room air. pt is stable, no acute respiratory distress. - Current Meds Current Meds: Current Medications Generic Name Dose Route Start Last Admin Trade Name Mila PRN Reason Stop Dose Admin Acetaminophen 650 mg 01/03/21 16:49 01/04/21 07:26 Acetaminophen 325 Mg Tablet PO 650 mg Q4HR PRN Administration Pain 1 to 4 Aspirin 81 mg 01/04/21 09:00 01/04/21 09:51 Aspirin Chew 81 Mg Tablet PO 81 mg DAILY DANA Administration Hydralazine HCl 10 mg 01/03/21 16:59 01/03/21 20:51 Hydralazine Inj 20 Mg/Ml Vial IVP 10 mg Q6H PRN Administration Hypertensive Emergency Sodium Chloride 1,000 mls @ 100 mls/hr 01/03/21 17:00 01/04/21 04:01 Normal Saline 0.9% IV 01/04/21 12:59 100 mls/hr .Q10H DANA Administration Piperacillin Sod/Tazobactam 100 mls @ 25 mls/hr 01/03/21 18:00 01/04/21 09:51 Sod 3.375 gm/ Sodium Chloride IV 25 mls/hr Q8H DANA Administration Morphine Sulfate 2 mg 01/03/21 16:49 01/04/21 02:42 Morphine 2 Mg/Ml Carpuject IVP 2 mg Q2HR PRN Administration Pain 8 to 10 Oxycodone HCl 5 mg 01/03/21 16:49 01/04/21 07:26 Oxycodone 5 Mg Tablet PO 5 mg Q4HR PRN Administration Pain 5 to 7 Sodium Chloride 10 ml 01/03/21 17:00 01/04/21 09:54 Sodium Chloride Flush 0.9% 10 Ml Syringe IVP Not Given 0100,0900,1700 DANA - Lab Result Fish Bone Diagrams: 01/04/21 05:03 01/04/21 05:03 - Additional Planning My Orders: My Active Orders 01/03/21 16:49 Telemetry- [RC] Q4HR Acetaminophen [Tylenol] 650 mg PO Q4HR PRN Morphine Inj (Carpuject) [Morphine (Carpuject)] 2 mg IVP Q2HR PRN Ondansetron Inj [Zofran Inj] 4 mg IVP Q6HR PRN Sodium Chloride Flush 0.9% [Normal Saline Flush 0.9%] 10 ml IVP PRN PRN oxyCODONE [Roxicodone] 5 mg PO Q4HR PRN 01/03/21 16:50 Activity Orders [RC] Q2HR IO [RC] IOSHIFT Initiate Bowel Care Protocol [RC] .protocol Initiate Line Care Protocol [RC] QSHIFT Initiate Personal Care Protoco [RC] .protocol Vital Signs [RC] Q30MX2,Q2HX2,Q4HX2,QSHIFT Code Status [OTHERS] Routine Condition of Patient [OTHERS] Routine DVT Prophylaxis [OTHERS] Routine 01/03/21 16:52 NPO except Meds [DIET] 01/03/21 16:53 SCDs [RC] QSHIFT 01/03/21 16:54 General Surgery Consult [CONS] Routine 01/03/21 16:57 Nitroglycerin [Nitrostat] 0.4 mg SL Q5MIN PRN 01/03/21 16:59 hydrALAZINE INJ [Apresoline Inj] 10 mg IVP Q6H PRN 01/03/21 17:00 Sodium Chloride 0.9% [Normal Saline 0.9%] 1,000 ml IV 100 mls/hr Sodium Chloride Flush 0.9% [Normal Saline Flush 0.9%] 10 ml IVP 0100,0900,1700 01/03/21 17:42 Albuterol 2.5 mg INH RTQ4H PRN Ipratropium/Albuterol [Duoneb] 3 ml INH RTQID PRN 01/03/21 17:43 Nebulizer/MDI Tx. [RC] .QID Resp Teach Nebulizer/MDI [RC] .ONCE 01/03/21 18:00 Piperacillin/Tazobactam [Zosyn] 3.375 gm Sodium Chloride 0.9% Minibag [Normal Saline 0.9% Minibag] 100 ml IV Q8H 01/04/21 07:38 Blood Culture [CULTURE, BLOOD #1] [RM] Urgent 10/14/21 07:55 Blood Culture [CULTURE, BLOOD #2] [RM] Urgent 01/04/21 09:00 Aspirin Chewable [St Sam Aspirin] 81 mg PO DAILY 01/05/21 05:00 CBC - COMP BLD CT W/AUTO DIFF [HEME] DAILYLAB CMP [COMPREHENSIVE METABOLIC PANEL] [CHEM] DAILYLAB 01/05/21 09:00 Enoxaparin [Lovenox] 40 mg SUBQ DAILY 01/06/21 05:00 CBC - COMP BLD CT W/AUTO DIFF [HEME] DAILYLAB CMP [COMPREHENSIVE METABOLIC PANEL] [CHEM] DAILYLAB 01/07/21 05:00 CBC - COMP BLD CT W/AUTO DIFF [HEME] DAILYLAB CMP [COMPREHENSIVE METABOLIC PANEL] [CHEM] DAILYLAB 01/08/21 05:00 CBC - COMP BLD CT W/AUTO DIFF [HEME] DAILYLAB CMP [COMPREHENSIVE METABOLIC PANEL] [CHEM] DAILYLAB Subjective - Subjective Patient Reports: Feeling Better Objective Vital Signs: Vital Signs - 24 hr 01/03/21 01/03/21 01/03/21 11:19 12:02 19:07 Temperature 36.6 C 38 C H Heart Rate 54 L 48 L 73 Heart Rate [ Brachial] Respiratory 22 21 22 Rate Blood Pressure 143/57 H 148/60 H 158/79 H Blood Pressure [Left Brachial artery] O2 Saturation 100 100 100 01/03/21 01/03/21 01/03/21 19:10 19:15 19:20 Temperature 38 C H 38 C H 38 C H Heart Rate 83 74 66 Heart Rate [ Brachial] Respiratory 22 22 18 Rate Blood Pressure 158/79 H 165/75 H 176/78 H Blood Pressure [Left Brachial artery] O2 Saturation 100 100 100 01/03/21 01/03/21 01/03/21 19:25 19:30 19:35 Temperature 37.9 C 37.9 C 37.9 C Heart Rate 65 67 67 Heart Rate [ Brachial] Respiratory 18 16 20 Rate Blood Pressure 172/71 H 172/74 H 172/63 H Blood Pressure [Left Brachial artery] O2 Saturation 100 100 96 01/03/21 01/03/21 01/03/21 19:45 20:00 20:15 Temperature 37.9 C Heart Rate Heart Rate [ 67 69 70 Brachial] Respiratory 20 Rate Blood Pressure Blood Pressure 166/61 H 170/50 H 175/71 H [Left Brachial artery] O2 Saturation 98 01/03/21 01/03/21 01/03/21 20:30 20:45 20:51 Temperature Heart Rate 68 Heart Rate [ 68 Brachial] Respiratory 20 20 Rate Blood Pressure 182/71 H Blood Pressure 182/71 H [Left Brachial artery] O2 Saturation 100 01/03/21 01/03/21 01/04/21 21:21 23:24 07:02 Temperature 37.8 C Heart Rate Heart Rate [ 78 72 Brachial] Respiratory 18 18 Rate Blood Pressure 168/72 H Blood Pressure 168/72 H 159/74 H [Left Brachial artery] O2 Saturation 97 97 01/04/21 01/04/21 01/04/21 08:50 09:01 09:05 Temperature 37.4 C 37.4 C Heart Rate 78 Heart Rate [ 78 Brachial] Respiratory 16 16 Rate Blood Pressure Blood Pressure 165/74 H [Left Brachial artery] O2 Saturation 96 96 Oxygen O2 Source Room air I&O (Last 24 Hrs): Intake and Output Totals x24h 01/02/21 01/03/21 01/04/21 23:59 23:59 23:59 Intake Total 100 1805 Output Total 100 605 Balance 0 1200 General: Alert, Oriented x3, Cooperative, No acute distress HEENT: Atraumatic Neck: Supple Lymphatic: no adenopathy Neuro: Alert, Non Focal, Oriented Times 3 Cardiovascular: Regular rate, Normal S1, Normal S2 Respiratory: Chest non-tender, No respiratory distress Abdomen: Normal bowel sounds, Soft Extremities: Normal pulses - Results Results: Laboratory Results WBC 28.7 x10^3/uL (4.8-10.8) H 01/04/21 05:03 RBC 4.34 10^6/uL (4.70-6.10) L 01/04/21 05:03 Hgb 13.6 g/dL (14.0-18.0) L 01/04/21 05:03 Hct 41.8 % (42.0-52.0) L 01/04/21 05:03 MCV 96.3 fL (80.0-94.0) H 01/04/21 05:03 MCH 31.3 pg (27.0-31.0) H 01/04/21 05:03 MCHC 32.5 g/dL (32.0-36.0) 01/04/21 05:03 RDW 15.7 % (12.0-15.0) H 01/04/21 05:03 Plt Count 70 10^3/uL (130-450) L 01/04/21 05:03 MPV 9.8 fL (7.4-11.4) 01/04/21 05:03 Neut # (Auto) Not Reportable 01/04/21 05:03 Lymph # (Auto) Not Reportable 01/04/21 05:03 Hall # (Auto) Not Reportable 01/04/21 05:03 Eos # (Auto) Not Reportable 01/04/21 05:03 Baso # (Auto) Not Reportable 01/04/21 05:03 Absolute Nucleated RBC Not Reportable 01/04/21 05:03 Total Counted 100 01/04/21 05:03 Band Neuts % (Manual) 3 % (0-10) 01/04/21 05:03 Reactive Lymphs % (Man) 11 % 01/04/21 05:03 Abnorm Lymph % (Manual) 0 % 01/04/21 05:03 Nucleated RBC % Not Reportable 01/04/21 05:03 Neutrophils # (Manual) 14.1 10^3/uL (1.5-6.6) H 01/04/21 05:03 Lymphocytes # (Manual) 13.2 10^3/uL (1.5-3.5) H 01/04/21 05:03 Monocytes # (Manual) 1.4 10^3/uL (0.0-1.0) H 01/04/21 05:03 Eosinophils # (Manual) 0.0 10^3/uL (0-0.7) 01/04/21 05:03 Basophils # (Manual) 0.0 10^3/uL (0-0.1) 01/04/21 05:03 Differential Comment MANUAL DIFFERENTIAL 01/04/21 05:03 WBC Morphology 2+ SMUDGE CELLS (NORMAL) 01/04/21 05:03 Platelet Estimate NORMAL (130-450,000) (NORMAL) 01/04/21 05:03 Platelet Morphology NORMAL APPEARANCE (NORMAL) 01/04/21 05:03 RBC Morph Micro Appear NORMAL APPEARANCE (NORMAL) 01/04/21 05:03 Sodium 139 mmol/L (135-145) 01/04/21 05:03 Potassium 4.6 mmol/L (3.5-5.0) 01/04/21 05:03 Chloride 103 mmol/L (101-111) 01/04/21 05:03 Carbon Dioxide 27 mmol/L (21-32) 01/04/21 05:03 Anion Gap 9.0 (6-13) 01/04/21 05:03 BUN 16 mg/dL (6-20) 01/04/21 05:03 Creatinine 1.0 mg/dL (0.6-1.2) 01/04/21 05:03 Estimated GFR (MDRD) 71 (>89) L 01/04/21 05:03 Glucose 135 mg/dL (70-100) H 01/04/21 05:03 Calcium 8.6 mg/dL (8.5-10.3) 01/04/21 05:03 Total Bilirubin 2.7 mg/dL (0.2-1.0) H 01/04/21 05:03 AST 49 IU/L (10-42) H 01/04/21 05:03 ALT 46 IU/L (10-60) 01/04/21 05:03 Alkaline Phosphatase 94 IU/L (42-121) 01/04/21 05:03 Troponin I High Sens 12.4 ng/L (2.3-19.7) 01/03/21 11:35 Total Protein 5.7 g/dL (6.7-8.2) L 01/04/21 05:03 Albumin 3.7 g/dL (3.2-5.5) 01/04/21 05:03 Globulin 2.0 g/dL (2.1-4.2) L 01/04/21 05:03 Albumin/Globulin Ratio 1.9 (1.0-2.2) 01/04/21 05:03 Lipase 28 U/L (22-51) 01/03/21 11:35 Urine Color YELLOW 01/03/21 21:41 Urine Clarity CLEAR (CLEAR) 01/03/21 21:41 Urine pH 7.5 PH (5.0-7.5) 01/03/21 21:41 Ur Specific [place] 1.010 (1.002-1.030) 01/03/21 21:41 Urine Protein TRACE mg/dL (NEGATIVE) 01/03/21 21:41 Urine Glucose (UA) NEGATIVE mg/dL (NEGATIVE) 01/03/21 21:41 Urine Ketones NEGATIVE mg/dL (NEGATIVE) 01/03/21 21:41 Urine Occult Blood TRACE-LYSE (NEGATIVE) 01/03/21 21:41 Urine Nitrite NEGATIVE (NEGATIVE) 01/03/21 21:41 Urine Bilirubin NEGATIVE (NEGATIVE) 01/03/21 21:41 Urine Urobilinogen 0.2 (NORMAL) E.U./dL (NORMAL) 01/03/21 21:41 Ur Leukocyte Esterase NEGATIVE (NEGATIVE) 01/03/21 21:41 Urine RBC 0-5 /HPF (0-5) 01/03/21 21:41 Urine WBC 0-3 /HPF (0-3) 01/03/21 21:41 Ur Squamous Epith Cells RARE Squamous (<= Few) 01/03/21 21:41 Urine Bacteria Rare /HPF (None Seen) 01/03/21 21:41 Urine Culture Comments NOT INDICATED 01/03/21 21:41 Nasal Adenovirus (PCR) NOT DETECTED 01/03/21 14:20 Nasal B. parapertussis DNA (PCR) NOT DETECTED 01/03/21 14:20 Nasal Coronavir 229E PCR NOT DETECTED 01/03/21 14:20 Nasal Coronavir HKU1 PCR NOT DETECTED 01/03/21 14:20 Nasal Coronavir NL63 PCR NOT DETECTED 01/03/21 14:20 Nasal Coronavir OC43 PCR NOT DETECTED 01/03/21 14:20 Nasal Enterovir/Rhinovir PCR NOT DETECTED 01/03/21 14:20 Nasal Influenza B PCR NOT DETECTED 01/03/21 14:20 Nasal Influenza A PCR NOT DETECTED 01/03/21 14:20 Nasal Parainfluen 1 PCR NOT DETECTED 01/03/21 14:20 Nasal Parainfluen 2 PCR NOT DETECTED 01/03/21 14:20 Nasal Parainfluen 3 PCR NOT DETECTED 01/03/21 14:20 Nasal Parainfluen 4 PCR NOT DETECTED 01/03/21 14:20 Nasal RSV (PCR) NOT DETECTED 01/03/21 14:20 Nasal B.pertussis DNA PCR NOT DETECTED 01/03/21 14:20 Nasal C.pneumoniae (PCR) NOT DETECTED 01/03/21 14:20 Mohit Human Metapneumo PCR NOT DETECTED 01/03/21 14:20 Nasal M.pneumoniae (PCR) NOT DETECTED 01/03/21 14:20 Nasal SARS-CoV-2 (PCR) NOT DETECTED 01/03/21 14:20 Sepsis Event Note (H) - Evaluation Current Stage of Sepsis: Sepsis Possible source of Sepsis: positive: GI tract/intra-abdominal - Sepsis Criteria Sepsis Criteria: Recorded Temperature greater than 38.3C or Less than 36C, WBC count greater than 12,000 or less than 4000 ABX Reporting Has patient been on IV antibiotics over the past 48 hours?: Yes Current Medications - Current Medications Current Medications: Active Medications Acetaminophen (Acetaminophen 325 Mg Tablet) 650 mg PO Q4HR PRN PRN Reason: Pain 1 to 4 Last Admin: 01/04/21 07:26 Dose: 650 mg Documented by: Albuterol (Albuterol Neb 2.5 Mg/3 Ml) 2.5 mg INH RTQ4H PRN PRN Reason: Wheezing Albuterol/Ipratropium (Ipratropium/Albuterol 3 Ml Neb) 3 ml INH RTQID PRN PRN Reason: Shortness of Air/Wheezing Aspirin (Aspirin Chew 81 Mg Tablet) 81 mg PO DAILY [facility] Last Admin: 01/04/21 09:51 Dose: 81 mg Documented by: Enoxaparin Sodium (Enoxaparin 40 Mg/0.4 Ml Syringe) 40 mg SUBQ DAILY [facility] Hydralazine HCl (Hydralazine Inj 20 Mg/Ml Vial) 10 mg IVP Q6H PRN PRN Reason: Hypertensive Emergency Last Admin: 01/03/21 20:51 Dose: 10 mg Documented by: Sodium Chloride (Normal Saline 0.9%) 1,000 mls @ 100 mls/hr IV .Q10H [facility] Stop: 01/04/21 12:59 Last Admin: 01/04/21 04:01 Dose: 100 mls/hr Documented by: Piperacillin Sod/Tazobactam (Sod 3.375 gm/ Sodium Chloride) 100 mls @ 25 mls/hr IV Q8H [facility] Last Admin: 01/04/21 09:51 Dose: 25 mls/hr Documented by: Morphine Sulfate (Morphine 2 Mg/Ml Carpuject) 2 mg IVP Q2HR PRN PRN Reason: Pain 8 to 10 Last Admin: 01/04/21 02:42 Dose: 2 mg Documented by: Nitroglycerin (Nitroglycerin Sl 0.4 Mg Tablet) 0.4 mg SL Q5MIN PRN PRN Reason: Chest Pain Ondansetron HCl (Ondansetron 4 Mg/2 Ml Vial) 4 mg IVP Q6HR PRN PRN Reason: Nausea / Vomiting Oxycodone HCl (Oxycodone 5 Mg Tablet) 5 mg PO Q4HR PRN PRN Reason: Pain 5 to 7 Last Admin: 01/04/21 07:26 Dose: 5 mg Documented by: Sodium Chloride (Sodium Chloride Flush 0.9% 10 Ml Syringe) 10 ml IVP PRN PRN PRN Reason: NEEDED PER PROVIDER ORDERS Sodium Chloride (Sodium Chloride Flush 0.9% 10 Ml Syringe) 10 ml IVP 0100,0900,1700 DANA Last Admin: 01/04/21 09:54 Dose: Not Given Documented by: Aspirin 81 mg PO DAILY 04/29/18 B Complex W-C No.20/Folic Acid [Mynephron Capsule] 1 mg PO 04/29/18 Calcium Carbonate [Calcium] 600 mg PO 04/29/18 Metoprolol Tartrate 25 mg PO DAILY 04/29/18 Nitroglycerin [Minitran (0.6 MG/HR)] 1 patch TOP 04/29/18 Atorvastatin Calcium [Lipitor] 80 mg PO QPM 01/04/21
--- NOTE | 2021-01-04 11:18 | PHARMACY PROGRESS NOTE ---
- Best Possible Medication History Admit Date and Time: 01/03/21 0019 Processed by: Pharmacy Medication History completed: Yes Patient Interview: Completed (PATIENT ABLE TO CONFIRM HOME MEDICATIONS) As the person ultimately responsible for medication therapy, providers are able to order a medication from an existing home medication list in [facility] via the "Reconcile Routine" prior to Confirmation of that medication by systems support specialist. Such practice is discouraged except when the physician, in their clinical judgment, deems that a medical need exists for a medication without regard to previous use.
--- NOTE | 2021-01-04 13:05 | PROVIDER PROGRESS NOTE ---
Subjective - General Admit Date: 01/03/21 Procedure Date: 01/03/21 Post Op Days: 1 Procedure Performed: Laparoscopic cholecystectomy - Review of Systems Wound/Incisions: positive: Healing well Drain Type: Steven Drain Output Description: Scant serosanguineous All Other Systems: positive: Reviewed and negative - Other Other Information/Narrative: He was complaining of suprapubic and pelvic pain. He says his right upper quadrant pain is better and controlled now. He has been emptying his bladder without difficulty and bladder scan does not show much residual left in his bladder. Objective - Patient Data Vital Signs: Vital Signs x48h Temp Pulse Pulse Resp BP Pulse Ox 01/04/21 13:01 37.7 C 78 20 168/67 H 95 01/04/21 09:05 37.4 C 78 16 96 01/04/21 09:01 37.4 C 01/04/21 08:50 78 16 165/74 H 96 01/04/21 07:02 37.8 C 72 18 159/74 H 97 Weight: Weight 01/02/21 01/03/21 01/04/21 23:59 23:59 23:59 Weight (kg) 72.5 kg Intake & Output: Intake and Output Totals x24h 01/02/21 01/03/21 01/04/21 23:59 23:59 23:59 Intake Total 100 1805 Output Total 100 805 Balance 0 1000 - Lab Results Lab Results: 01/04/21 05:03 01/04/21 05:03 Other Lab Results: Lab Results x24hrs 01/04/21 01/04/21 01/03/21 Range/Units 05:03 05:03 21:41 WBC 28.7 H (4.8-10.8) x10^3/uL RBC 4.34 L (4.70-6.10) 10^6/uL Hgb 13.6 L (14.0-18.0) g/dL Hct 41.8 L (42.0-52.0) % MCV 96.3 H (80.0-94.0) fL MCH 31.3 H (27.0-31.0) pg MCHC 32.5 (32.0-36.0) g/dL RDW 15.7 H (12.0-15.0) % Plt Count 70 L (130-450) 10^3/uL MPV 9.8 (7.4-11.4) fL Neut # (Auto) Not Reportable Lymph # (Auto) Not Reportable Robeson # (Auto) Not Reportable Eos # (Auto) Not Reportable Baso # (Auto) Not Reportable Absolute Nucleated RBC Not Reportable Total Counted 100 Band Neuts % (Manual) 3 (0 - 10) % Reactive Lymphs % (Man) 11 % Abnorm Lymph % (Manual) 0 % Nucleated RBC % Not Reportable Neutrophils # (Manual) 14.1 H (1.5-6.6) 10^3/uL Lymphocytes # (Manual) 13.2 H (1.5-3.5) 10^3/uL Monocytes # (Manual) 1.4 H (0.0-1.0) 10^3/uL Eosinophils # (Manual) 0.0 (0-0.7) 10^3/uL Basophils # (Manual) 0.0 (0-0.1) 10^3/uL Differential Comment MANUAL DIFFERENTIAL WBC Morphology 2+ SMUDGE CELLS (NORMAL) Platelet Estimate NORMAL (130-450,000) (NORMAL) Platelet Morphology NORMAL APPEARANCE (NORMAL) RBC Morph Micro Appear NORMAL APPEARANCE (NORMAL) Sodium 139 (135-145) mmol/L Potassium 4.6 (3.5-5.0) mmol/L Chloride 103 (101-111) mmol/L Carbon Dioxide 27 (21-32) mmol/L Anion Gap 9.0 (6-13) BUN 16 (6-20) mg/dL Creatinine 1.0 (0.6-1.2) mg/dL Estimated GFR (MDRD) 71 L (>89) Glucose 135 H (70-100) mg/dL Calcium 8.6 (8.5-10.3) mg/dL Total Bilirubin 2.7 H (0.2-1.0) mg/dL AST 49 H (10-42) IU/L ALT 46 (10-60) IU/L Alkaline Phosphatase 94 (42-121) IU/L Total Protein 5.7 L (6.7-8.2) g/dL Albumin 3.7 (3.2-5.5) g/dL Globulin 2.0 L (2.1-4.2) g/dL Albumin/Globulin Ratio 1.9 (1.0-2.2) Urine Color YELLOW Urine Clarity CLEAR (CLEAR) Urine pH 7.5 (5.0-7.5) PH Ur Specific Cr[place] 1.010 (1.002-1.030) Urine Protein TRACE (NEGATIVE) mg/dL Urine Glucose (UA) NEGATIVE (NEGATIVE) mg/dL Urine Ketones NEGATIVE (NEGATIVE) mg/dL Urine Occult Blood TRACE-LYSE (NEGATIVE) Urine Nitrite NEGATIVE (NEGATIVE) Urine Bilirubin NEGATIVE (NEGATIVE) Urine Urobilinogen 0.2 (NORMAL) (NORMAL) E.U./dL Ur Leukocyte Esterase NEGATIVE (NEGATIVE) Urine RBC 0-5 (0-5) /HPF Urine WBC 0-3 (0-3) /HPF Ur Squamous Epith Cells RARE Squamous (<= Few) Urine Bacteria Rare (None Seen) /HPF Urine Culture Comments NOT INDICATED Nasal Adenovirus (PCR) Nasal B. parapertussis DNA (PCR) Nasal Coronavir 229E PCR Nasal Coronavir HKU1 PCR Nasal Coronavir NL63 PCR Nasal Coronavir OC43 PCR Nasal Enterovir/Rhinovir PCR Nasal Influenza B PCR Nasal Influenza A PCR Nasal Parainfluen 1 PCR Nasal Parainfluen 2 PCR Nasal Parainfluen 3 PCR Nasal Parainfluen 4 PCR Nasal RSV (PCR) Nasal B.pertussis DNA PCR Nasal C.pneumoniae (PCR) Mohit Human Metapneumo PCR Nasal M.pneumoniae (PCR) Nasal SARS-CoV-2 (PCR) 01/03/21 Range/Units 14:20 WBC (4.8-10.8) x10^3/uL RBC (4.70-6.10) 10^6/uL Hgb (14.0-18.0) g/dL Hct (42.0-52.0) % MCV (80.0-94.0) fL MCH (27.0-31.0) pg MCHC (32.0-36.0) g/dL RDW (12.0-15.0) % Plt Count (130-450) 10^3/uL MPV (7.4-11.4) fL Neut # (Auto) Lymph # (Auto) Robeson # (Auto) Eos # (Auto) Baso # (Auto) Absolute Nucleated RBC Total Counted Band Neuts % (Manual) (0 - 10) % Reactive Lymphs % (Man) % Abnorm Lymph % (Manual) % Nucleated RBC % Neutrophils # (Manual) (1.5-6.6) 10^3/uL Lymphocytes # (Manual) (1.5-3.5) 10^3/uL Monocytes # (Manual) (0.0-1.0) 10^3/uL Eosinophils # (Manual) (0-0.7) 10^3/uL Basophils # (Manual) (0-0.1) 10^3/uL Differential Comment WBC Morphology (NORMAL) Platelet Estimate (NORMAL) Platelet Morphology (NORMAL) RBC Morph Micro Appear (NORMAL) Sodium (135-145) mmol/L Potassium (3.5-5.0) mmol/L Chloride (101-111) mmol/L Carbon Dioxide (21-32) mmol/L Anion Gap (6-13) BUN (6-20) mg/dL Creatinine (0.6-1.2) mg/dL Estimated GFR (MDRD) (>89) Glucose (70-100) mg/dL Calcium (8.5-10.3) mg/dL Total Bilirubin (0.2-1.0) mg/dL AST (10-42) IU/L ALT (10-60) IU/L Alkaline Phosphatase (42-121) IU/L Total Protein (6.7-8.2) g/dL Albumin (3.2-5.5) g/dL Globulin (2.1-4.2) g/dL Albumin/Globulin Ratio (1.0-2.2) Urine Color Urine Clarity (CLEAR) Urine pH (5.0-7.5) PH Ur Specific [place] (1.002-1.030) Urine Protein (NEGATIVE) mg/dL Urine Glucose (UA) (NEGATIVE) mg/dL Urine Ketones (NEGATIVE) mg/dL Urine Occult Blood (NEGATIVE) Urine Nitrite (NEGATIVE) Urine Bilirubin (NEGATIVE) Urine Urobilinogen (NORMAL) E.U./dL Ur Leukocyte Esterase (NEGATIVE) Urine RBC (0-5) /HPF Urine WBC (0-3) /HPF Ur Squamous Epith Cells (<= Few) Urine Bacteria (None Seen) /HPF Urine Culture Comments Nasal Adenovirus (PCR) NOT DETECTED Nasal B. parapertussis DNA (PCR) NOT DETECTED Nasal Coronavir 229E PCR NOT DETECTED Nasal Coronavir HKU1 PCR NOT DETECTED Nasal Coronavir NL63 PCR NOT DETECTED Nasal Coronavir OC43 PCR NOT DETECTED Nasal Enterovir/Rhinovir PCR NOT DETECTED Nasal Influenza B PCR NOT DETECTED Nasal Influenza A PCR NOT DETECTED Nasal Parainfluen 1 PCR NOT DETECTED Nasal Parainfluen 2 PCR NOT DETECTED Nasal Parainfluen 3 PCR NOT DETECTED Nasal Parainfluen 4 PCR NOT DETECTED Nasal RSV (PCR) NOT DETECTED Nasal B.pertussis DNA PCR NOT DETECTED Nasal C.pneumoniae (PCR) NOT DETECTED Mohit Human Metapneumo PCR NOT DETECTED Nasal M.pneumoniae (PCR) NOT DETECTED Nasal SARS-CoV-2 (PCR) NOT DETECTED - Current Medications Current Medications: Current Medications Generic Name Dose Route Start Last Admin Trade Name Freq PRN Reason Stop Dose Admin Acetaminophen 650 mg 01/03/21 16:49 01/04/21 07:26 Acetaminophen 325 Mg Tablet PO 650 mg Q4HR PRN Administration Pain 1 to 4 Aspirin 81 mg 01/04/21 09:00 01/04/21 09:51 Aspirin Chew 81 Mg Tablet PO 81 mg DAILY DANA Administration Hydralazine HCl 10 mg 01/03/21 16:59 01/03/21 20:51 Hydralazine Inj 20 Mg/Ml Vial IVP 10 mg Q6H PRN Administration Hypertensive Emergency Piperacillin Sod/Tazobactam 100 mls @ 25 mls/hr 01/03/21 18:00 01/04/21 09:51 Sod 3.375 gm/ Sodium Chloride IV 25 mls/hr Q8H DANA Administration Morphine Sulfate 2 mg 01/03/21 16:49 01/04/21 11:32 Morphine 2 Mg/Ml Carpuject IVP 2 mg Q2HR PRN Administration Pain 8 to 10 Oxycodone HCl 5 mg 01/03/21 16:49 01/04/21 07:26 Oxycodone 5 Mg Tablet PO 5 mg Q4HR PRN Administration Pain 5 to 7 Sodium Chloride 10 ml 01/03/21 17:00 01/04/21 09:54 Sodium Chloride Flush 0.9% 10 Ml Syringe IVP Not Given 0100,0900,1700 [facility] - Physical Exam Wound/Incisions: positive: Healing well, Other (Significant and impressive b ruising below the umbilicus.) General Appearance: positive: No acute distress Eyes Bilateral: positive: Normal inspection, PERRL, EOMI Abdomen: positive: Nml bowel sounds, Tenderness ABX Reporting Has patient been on IV antibiotics over the past 48 hours?: Yes Impression/Plan - Problem List Problem List: Postop day 1 after laparoscopic cholecystectomy for gangrenous gallbladder. 1. I think his pain is likely secondary to all of this heme dissecting down toward his pelvis. I explained that to him. It is just going to take time to go away. We had significant bleeding and oozing during the procedure that was c onsistent with somebody on anticoagulants though we have no record of any. I would recommend ice packs for the next couple of days and then we can switch to heat. Tylenol and Advil will help probably. It is just can to be uncomfortable for a while. 2. Bilirubin is slightly up today. I think this is likely multifactorial between all of the blood out in his tissues and the fact that he did have some Schmutz in his cystic duct. I milked back all that I could but he will likely just passed the rest.We will repeat labs in the morning. 3. Agree with antibiotic choice and would continue.Leukocytosis is not unexpected especially in the setting of his chronic underlying history.Clinically he appears stable.
[2021-01-04] MEDS: ONDANSETRON 4 MG/2 ML VIAL IVP PRN ×2 (14:02→20:56)
[2021-01-04] MEDS ORDERED: SODIUM CHLORIDE 0.9% 1,000 ML IV SCH (17:00)
[2021-01-04] MEDS ORDERED: DEXTROSE 5%-0.9% NACL 1,000 ML IV SCH (17:00)
[2021-01-04] MEDS: ATORVASTATIN 40 MG TABLET PO SCH (20:56)
[2021-01-05] MEDS: SODIUM CHLORIDE FLUSH 0.9% 10 ML SYRINGE IVP SCH ×4 (00:38→18:52)
[2021-01-05] MEDS: hydrALAZINE INJ 20 MG/ML VIAL IVP PRN (00:57)
[2021-01-05] MEDS: PIPERACILLIN/TAZOBACTAM 3.375 GM in SODIUM CHLORIDE 0.9% MINIBAG 100 ML IV SCH ×3 (02:07→18:52)
[2021-01-05] MEDS: ONDANSETRON 4 MG/2 ML VIAL IVP PRN (04:38)
[2021-01-05] MEDS: oxyCODONE 5 MG TABLET PO PRN ×3 (04:48→18:51)
[2021-01-05] MEDS: MORPHINE 2 MG/ML CARPUJECT IVP PRN (04:49)
[2021-01-05] MEDS: ACETAMINOPHEN 325 MG TABLET PO PRN ×2 (04:49→11:44)
[2021-01-05 05:51] LABS: BASOPHILS % (AUTO) 0.3 %; HCT - HEMATOCRIT 39.8 % (42.0-52.0); HGB - HEMOGLOBIN 13.2 g/dL (14.0-18.0); LYMPHOCYTES % (AUTO) 61.4 %; MEAN CORPUSCULAR HEMOGLOBIN 31.7 pg (27.0-31.0); MEAN CORPUSCULAR HGB CONC 33.2 g/dL (32.0-36.0); MEAN CORPUSCULAR VOLUME 95.4 fL (80.0-94.0); MEAN PLATELET VOLUME 9.7 fL (7.4-11.4); MONOCYTES % (AUTO) 8.7 %; NEUTROPHILS % (AUTO) 27.4 %; PLT - PLATELET COUNT 113 10^3/uL (130-450); RED BLOOD COUNT 4.17 10^6/uL (4.70-6.10); RED CELL DISTRIBUTION WIDTH 15.8 % (12.0-15.0)
[2021-01-05 05:54] LABS: WHITE BLOOD COUNT 51.5 x10^3/uL (4.8-10.8)
[2021-01-05 05:56] LABS: BAND NEUTROPHILS % (MANUAL) 0 %
[2021-01-05 06:02] LABS: ALBUMIN 3.5 g/dL (3.2-5.5); ALBUMIN/GLOBULIN RATIO 1.5 (1.0-2.2); BILIRUBIN,TOTAL 4.9 mg/dL (0.2-1.0); CALCIUM 8.5 mg/dL (8.5-10.3); TOTAL PROTEIN 5.8 g/dL (6.7-8.2)
[2021-01-05 06:08] LABS: ABNORMAL LYMPHS % (MANUAL) 1 %; DIFFERENTIAL COMMENT MANUAL DIFFERENTIAL; LYMPHOCYTES % (MANUAL) 67 %; MONOCYTES # (MANUAL) 3.1 10^3/uL (0.0-1.0); NEUTROPHILS # (MANUAL) 13.4 10^3/uL (1.5-6.6); PLATELET ESTIMATE, MANUAL DECREASED (<130,000) (NORMAL); PLATELET MORPHOLOGY NORMAL APPEARANCE (NORMAL); RBC MORPHOLOGY (MULTIPLE) NORMAL APPEARANCE (NORMAL); WBC MORPHOLOGY (MULTIPLE) NORMAL APPEARANCE (NORMAL)
[2021-01-05] MEDS ORDERED: SODIUM CHLORIDE 0.9% 1,000 ML IV SCH (08:00)
[2021-01-05] MEDS ORDERED: METOPROLOL TARTRATE 25 MG TABLET PO SCH (09:00)
[2021-01-05] MEDS ORDERED: [UNRECOGNIZED DRUG - REMARK] PO SCH (09:00)
[2021-01-05] MEDS: ASPIRIN CHEW 81 MG TABLET PO SCH (09:29)
[2021-01-05] MEDS: MULTIVITAMIN TABLET PO SCH (09:30)
[2021-01-05] MEDS: ENOXAPARIN 40 MG/0.4 ML SYRINGE SUBQ SCH (09:31)
[2021-01-05] MEDS: polyethylene glycoL 3350 17 GM PACKET PO SCH (09:31)
[2021-01-05 11:55] LABS: BASOPHILS % (AUTO) 0.3 %; HCT - HEMATOCRIT 37.1 % (42.0-52.0); HGB - HEMOGLOBIN 12.2 g/dL (14.0-18.0); LYMPHOCYTES % (AUTO) 59.7 %; MEAN CORPUSCULAR HEMOGLOBIN 31.5 pg (27.0-31.0); MEAN CORPUSCULAR HGB CONC 32.9 g/dL (32.0-36.0); MEAN CORPUSCULAR VOLUME 95.9 fL (80.0-94.0); MEAN PLATELET VOLUME 9.3 fL (7.4-11.4); MONOCYTES % (AUTO) 8.1 %; NEUTROPHILS % (AUTO) 29.4 %; PLT - PLATELET COUNT 86 10^3/uL (130-450); RED BLOOD COUNT 3.87 10^6/uL (4.70-6.10); RED CELL DISTRIBUTION WIDTH 15.9 % (12.0-15.0)
[2021-01-05 12:00] LABS: WHITE BLOOD COUNT 43.4 x10^3/uL (4.8-10.8)
[2021-01-05 12:02] LABS: BAND NEUTROPHILS % (MANUAL) 0 %
--- NOTE | 2021-01-05 12:02 | PROVIDER PROGRESS NOTE ---
Assessment/Plan - Problem List (1) Acute cholecystitis Assessment/Plan: 01/05 pt report his lower quadrant of abdomen pain is better than yesterday. pt has no fever, Hemodynamic stable now. But he has no appetite, and he did not eat anything now, no bowel movement or gas now, total bili and direct bili has slight elevated, significantly elevated WBC. we will continue antibiotics now, continue IVF, followup with surgeon's recommendation. 01/04, s/p care day one from cholecystectomy. pt has low degree fever on last night, WBC was elevated to 28.7, but pt Is hemodynamic stable. per surgery report Gallbladder releasing large amount of hydropic fluid and gross purulence. we order blood culture, continue Zosyn, IVF, Continue pain control, order incentive spirometer, nurse continue drainage. when start with diet for pt per surgeon Patient present right upper quadrant pain and radiated to bilaterally shoulders. CT and ultrasound both concern acute cholecystitis. pt had elevated WBC but he has no fever. ER already started with Zosyn, we will continue. consult with GI surgeon, plan to have Cholecystectomy on today afternoon. We will continue pain control, continue Zosyn and we will follow up with surgeon (2)leukocytosis Patient's WBC is elevated to 51.5 then down to 43.4. pt has hx of CLL. pt report he saw his oncologist Dr. Umer Eisenberg on November 11. I called Dr. Umer Eisenberg, updated pt's medical conditions. Dr. Umer Eisenberg believe this elevated WBC is reaction to infection and surgical stress, suggest to continue lab monitor. I consult with our [facility] today oncologist, he suggest possible reaction and suggest to do peripheral smear study to see if pt has Smudge cells. We will do peripheral smear study, Continue laboratory animal caretaker, Continue antibiotics at this point. (3)sepsis 01/05,Patient has no fever, patient is hemodynamic stable, Blood culture is negative for bacteremia. We will continue antibiotics, continue intravenous IV fluids. Patient present low degree fever, significant had elevated WBC, Cholecystitis with gross purulence. We will continue antibiotics Zosyn, IV fluids, continue laboratory and vital signs monitor closely (4) Hx of bladder cancer Conclusion/Plan: Patient has a history of bladder cancer, he reported he had appointment next week Friday To see his oncologist. Advised patient continue follow-up. Now patient can urinate and stable. will order UA (5) Hx of chronic lymphocytic leukemia Conclusion/Plan: 01/05, As above, I called patient's oncologist and discussed the care plan. Per patient's oncologist suggestion, we will do laboratory animal caretaker. oncologist believe this is a reaction to the infection and surgical stress Stable, patient may continue follow-up his oncologist. He is elevated WBC which is likely reactive from his infection, acute cholecystitis. (6) HTN (hypertension) Conclusion/Plan: we will hold his Metoprolol, since his HR is at low arrange, Add hydralazine as needed. (7) Hx of coronary artery disease Conclusion/Plan: Patient's upper abdominal pain, and bilateral shoulder pain are likely caused by his acute Cholecystitis. EKG and troponin are negative for DE. pt had recently ECHO study show reserved EF and stress test was stable. resume home aspirin, continue tele monitor and vital monitor. (8) COPD (chronic obstructive pulmonary disease) Conclusion/Plan: pt report he took inhaler PRN at home, no home oxygen needed. pt has 100% O2 sats on room air. pt is stable, no acute respiratory distress. - Current Meds Current Meds: Current Medications Generic Name Dose Route Start Last Admin Trade Name Freq PRN Reason Stop Dose Admin Acetaminophen 650 mg 01/03/21 16:49 01/05/21 11:44 Acetaminophen 325 Mg Tablet PO 650 mg Q4HR PRN Administration Pain 1 to 4 Aspirin 81 mg 01/04/21 09:00 01/05/21 09:29 Aspirin Chew 81 Mg Tablet PO 81 mg DAILY DANA Administration Atorvastatin Calcium 80 mg 01/04/21 21:00 01/04/21 20:56 Atorvastatin 40 Mg Tablet PO 80 mg QPM DANA Administration Enoxaparin Sodium 40 mg 01/05/21 09:00 01/05/21 09:31 Enoxaparin 40 Mg/0.4 Ml Syringe SUBQ 40 mg DAILY DANA Administration Hydralazine HCl 10 mg 01/03/21 16:59 01/05/21 00:57 Hydralazine Inj 20 Mg/Ml Vial IVP 10 mg Q6H PRN Administration Hypertensive Emergency Piperacillin Sod/Tazobactam 100 mls @ 25 mls/hr 01/03/21 18:00 01/05/21 09:37 Sod 3.375 gm/ Sodium Chloride IV 25 mls/hr Q8H DANA Administration Sodium Chloride 1,000 mls @ 83.333 mls/hr 01/05/21 08:00 01/05/21 09:27 Normal Saline 0.9% IV 01/06/21 07:59 83.333 mls/hr .Q12H DANA Administration Metoprolol Tartrate 25 mg 01/05/21 09:00 01/05/21 09:31 Metoprolol Tartrate 25 Mg Tablet PO 25 mg DAILY DANA Administration Morphine Sulfate 2 mg 01/03/21 16:49 01/05/21 04:49 Morphine 2 Mg/Ml Carpuject IVP 2 mg Q2HR PRN Administration Pain 8 to 10 Multivitamins 1 tab 01/05/21 08:00 01/05/21 09:30 Multivitamin Tablet PO 1 tab DAILYWM DANA Administration Ondansetron HCl 4 mg 01/03/21 16:49 01/05/21 04:38 Ondansetron 4 Mg/2 Ml Vial IVP 4 mg Q6HR PRN Administration Nausea / Vomiting Oxycodone HCl 5 mg 01/03/21 16:49 01/05/21 11:43 Oxycodone 5 Mg Tablet PO 5 mg Q4HR PRN Administration Pain 5 to 7 Polyethylene Glycol 17 gm 01/05/21 09:00 01/05/21 09:31 Polyethylene Glycol 3350 17 Gm Packet PO 17 gm DAILY DANA Administration Sodium Chloride 10 ml 01/03/21 17:00 01/05/21 09:32 Sodium Chloride Flush 0.9% 10 Ml Syringe IVP 10 ml 0100,0900,1700 DANA Administration - Lab Result Fish Bone Diagrams: 01/05/21 11:48 01/05/21 05:19 - Additional Planning My Orders: My Active Orders 01/04/21 21:00 Atorvastatin [Lipitor] 80 mg PO QPM 01/05/21 08:00 Multivitamin [Theragran] 1 tab PO DAILYWM Sodium Chloride 0.9% [Normal Saline 0.9%] 1,000 ml IV 83.333 mls/hr 01/05/21 09:00 Enoxaparin [Lovenox] 40 mg SUBQ DAILY Metoprolol Tartrate [Lopressor] 25 mg PO DAILY 01/05/21 11:33 Miscellaneous Laboratory Order [LAB] Urgent 01/05/21 11:48 CBC - COMP BLD CT W/AUTO DIFF [HEME] Routine 01/06/21 05:00 CBC - COMP BLD CT W/AUTO DIFF [HEME] DAILYLAB CMP [COMPREHENSIVE METABOLIC PANEL] [CHEM] DAILYLAB 01/07/21 05:00 CBC - COMP BLD CT W/AUTO DIFF [HEME] DAILYLAB CMP [COMPREHENSIVE METABOLIC PANEL] [CHEM] DAILYLAB 01/08/21 05:00 CBC - COMP BLD CT W/AUTO DIFF [HEME] DAILYLAB CMP [COMPREHENSIVE METABOLIC PANEL] [CHEM] DAILYLAB Subjective - Subjective Patient Reports: Abdominal Pain Objective Vital Signs: Vital Signs - 24 hr 01/04/21 01/04/21 01/04/21 13:01 15:47 21:00 Temperature 37.7 C 36.9 C 36 C L Heart Rate [ 78 72 80 Brachial] Respiratory 20 20 20 Rate Blood Pressure Blood Pressure 168/67 H 149/75 H [Left Brachial artery] Blood Pressure 160/79 H [Right Brachial artery] O2 Saturation 95 94 94 01/04/21 01/05/21 01/05/21 23:54 00:56 00:57 Temperature 37.3 C Heart Rate [ 86 84 Brachial] Respiratory 20 Rate Blood Pressure 174/76 H Blood Pressure 173/78 H 174/76 H [Left Brachial artery] Blood Pressure [Right Brachial artery] O2 Saturation 96 01/05/21 01/05/21 01/05/21 01:01 01:14 01:27 Temperature Heart Rate [ 79 85 Brachial] Respiratory Rate Blood Pressure 150/66 H Blood Pressure 167/70 H 150/66 H [Left Brachial artery] Blood Pressure [Right Brachial artery] O2 Saturation 01/05/21 01/05/21 01/05/21 05:00 05:08 07:35 Temperature 37.3 C 37.0 C Heart Rate [ 91 87 Brachial] Respiratory 20 18 Rate Blood Pressure Blood Pressure 178/73 H 151/73 H 162/83 H [Left Brachial artery] Blood Pressure [Right Brachial artery] O2 Saturation 96 96 01/05/21 01/05/21 09:31 11:36 Temperature 37.6 C Heart Rate [ 72 Brachial] Respiratory 18 Rate Blood Pressure 162/83 H Blood Pressure 137/66 H [Left Brachial artery] Blood Pressure [Right Brachial artery] O2 Saturation 97 Oxygen O2 Source Room air I&O (Last 24 Hrs): Intake and Output Totals x24h 01/03/21 01/04/21 01/05/21 23:59 23:59 23:59 Intake Total 100 3005 1250 Output Total 100 1330 650 Balance 0 1675 600 General: Alert, Oriented x3, Cooperative, Mild distress HEENT: Atraumatic Neck: Supple Lymphatic: no adenopathy Neuro: Alert, Non Focal, Oriented Times 3 Cardiovascular: Regular rate, Normal S1, Normal S2 Respiratory: Chest non-tender, No respiratory distress Abdomen: Normal bowel sounds, Soft Extremities: Normal pulses - Results Results: Laboratory Results WBC 51.5 x10^3/uL (4.8-10.8) H* 01/05/21 05:19 RBC 4.17 10^6/uL (4.70-6.10) L 01/05/21 05:19 Hgb 13.2 g/dL (14.0-18.0) L 01/05/21 05:19 Hct 39.8 % (42.0-52.0) L 01/05/21 05:19 MCV 95.4 fL (80.0-94.0) H 01/05/21 05:19 MCH 31.7 pg (27.0-31.0) H 01/05/21 05:19 MCHC 33.2 g/dL (32.0-36.0) 01/05/21 05:19 RDW 15.8 % (12.0-15.0) H 01/05/21 05:19 Plt Count 113 10^3/uL (130-450) L 01/05/21 05:19 MPV 9.7 fL (7.4-11.4) 01/05/21 05:19 Neut # (Auto) Not Reportable 01/05/21 05:19 Lymph # (Auto) Not Reportable 01/05/21 05:19 [place] # (Auto) Not Reportable 01/05/21 05:19 Eos # (Auto) Not Reportable 01/05/21 05:19 Baso # (Auto) Not Reportable 01/05/21 05:19 Absolute Nucleated RBC Not Reportable 01/05/21 05:19 Total Counted 100 01/05/21 05:19 Band Neuts % (Manual) 0 % (0-10) 01/05/21 05:19 Reactive Lymphs % (Man) 11 % 01/04/21 05:03 Abnorm Lymph % (Manual) 1 % 01/05/21 05:19 Nucleated RBC % Not Reportable 01/05/21 05:19 Neutrophils # (Manual) 13.4 10^3/uL (1.5-6.6) H 01/05/21 05:19 Lymphocytes # (Manual) 35.0 10^3/uL (1.5-3.5) H 01/05/21 05:19 Monocytes # (Manual) 3.1 10^3/uL (0.0-1.0) H 01/05/21 05:19 Eosinophils # (Manual) 0.0 10^3/uL (0-0.7) 01/05/21 05:19 Basophils # (Manual) 0.0 10^3/uL (0-0.1) 01/05/21 05:19 Differential Comment MANUAL DIFFERENTIAL 01/05/21 05:19 WBC Morphology NORMAL APPEARANCE (NORMAL) 01/05/21 05:19 Platelet Estimate DECREASED (<130,000) (NORMAL) 01/05/21 05:19 Platelet Morphology NORMAL APPEARANCE (NORMAL) 01/05/21 05:19 RBC Morph Micro Appear NORMAL APPEARANCE (NORMAL) 01/05/21 05:19 Sodium 139 mmol/L (135-145) 01/05/21 05:19 Potassium 4.0 mmol/L (3.5-5.0) 01/05/21 05:19 Chloride 103 mmol/L (101-111) 01/05/21 05:19 Carbon Dioxide 25 mmol/L (21-32) 01/05/21 05:19 Anion Gap 11.0 (6-13) 01/05/21 05:19 BUN 26 mg/dL (6-20) H 01/05/21 05:19 Creatinine 1.0 mg/dL (0.6-1.2) 01/05/21 05:19 Estimated GFR (MDRD) 71 (>89) L 01/05/21 05:19 Glucose 124 mg/dL (70-100) H 01/05/21 05:19 Calcium 8.5 mg/dL (8.5-10.3) 01/05/21 05:19 Total Bilirubin 4.9 mg/dL (0.2-1.0) H 01/05/21 05:19 Direct Bilirubin 2.0 mg/dL (0.1-0.5) H 01/05/21 05:19 AST 42 IU/L (10-42) 01/05/21 05:19 ALT 40 IU/L (10-60) 01/05/21 05:19 Alkaline Phosphatase 79 IU/L (42-121) 01/05/21 05:19 Troponin I High Sens 12.4 ng/L (2.3-19.7) 01/03/21 11:35 Total Protein 5.8 g/dL (6.7-8.2) L 01/05/21 05:19 Albumin 3.5 g/dL (3.2-5.5) 01/05/21 05:19 Globulin 2.3 g/dL (2.1-4.2) 01/05/21 05:19 Albumin/Globulin Ratio 1.5 (1.0-2.2) 01/05/21 05:19 Lipase 28 U/L (22-51) 01/03/21 11:35 Urine Color YELLOW 01/03/21 21:41 Urine Clarity CLEAR (CLEAR) 01/03/21 21:41 Urine pH 7.5 PH (5.0-7.5) 01/03/21 21:41 Ur Specific [place] 1.010 (1.002-1.030) 01/03/21 21:41 Urine Protein TRACE mg/dL (NEGATIVE) 01/03/21 21:41 Urine Glucose (UA) NEGATIVE mg/dL (NEGATIVE) 01/03/21 21:41 Urine Ketones NEGATIVE mg/dL (NEGATIVE) 01/03/21 21:41 Urine Occult Blood TRACE-LYSE (NEGATIVE) 01/03/21 21:41 Urine Nitrite NEGATIVE (NEGATIVE) 01/03/21 21:41 Urine Bilirubin NEGATIVE (NEGATIVE) 01/03/21 21:41 Urine Urobilinogen 0.2 (NORMAL) E.U./dL (NORMAL) 01/03/21 21:41 Ur Leukocyte Esterase NEGATIVE (NEGATIVE) 01/03/21 21:41 Urine RBC 0-5 /HPF (0-5) 01/03/21 21:41 Urine WBC 0-3 /HPF (0-3) 01/03/21 21:41 Ur Squamous Epith Cells RARE Squamous (<= Few) 01/03/21 21:41 Urine Bacteria Rare /HPF (None Seen) 10/13/21 21:41 Urine Culture Comments NOT INDICATED 01/03/21 21:41 Nasal Adenovirus (PCR) NOT DETECTED 01/03/21 14:20 Nasal B. parapertussis DNA (PCR) NOT DETECTED 01/03/21 14:20 Nasal Coronavir 229E PCR NOT DETECTED 01/03/21 14:20 Nasal Coronavir HKU1 PCR NOT DETECTED 01/03/21 14:20 Nasal Coronavir NL63 PCR NOT DETECTED 01/03/21 14:20 Nasal Coronavir OC43 PCR NOT DETECTED 01/03/21 14:20 Nasal Enterovir/Rhinovir PCR NOT DETECTED 01/03/21 14:20 Nasal Influenza B PCR NOT DETECTED 01/03/21 14:20 Nasal Influenza A PCR NOT DETECTED 01/03/21 14:20 Nasal Parainfluen 1 PCR NOT DETECTED 01/03/21 14:20 Nasal Parainfluen 2 PCR NOT DETECTED 01/03/21 14:20 Nasal Parainfluen 3 PCR NOT DETECTED 01/03/21 14:20 Nasal Parainfluen 4 PCR NOT DETECTED 01/03/21 14:20 Nasal RSV (PCR) NOT DETECTED 01/03/21 14:20 Nasal B.pertussis DNA PCR NOT DETECTED 01/03/21 14:20 Nasal C.pneumoniae (PCR) NOT DETECTED 01/03/21 14:20 Mohit Human Metapneumo PCR NOT DETECTED 01/03/21 14:20 Nasal M.pneumoniae (PCR) NOT DETECTED 01/03/21 14:20 Nasal SARS-CoV-2 (PCR) NOT DETECTED 01/03/21 14:20 Sepsis Event Note (H) - Evaluation Current Stage of Sepsis: Sepsis Possible source of Sepsis: positive: GI tract/intra-abdominal - Sepsis Criteria Sepsis Criteria: Recorded Temperature greater than 38.3C or Less than 36C, WBC count greater than 12,000 or less than 4000 ABX Reporting Has patient been on IV antibiotics over the past 48 hours?: Yes Current Medications - Current Medications Current Medications: Active Medications Acetaminophen (Acetaminophen 325 Mg Tablet) 650 mg PO Q4HR PRN PRN Reason: Pain 1 to 4 Last Admin: 01/05/21 11:44 Dose: 650 mg Documented by: Albuterol (Albuterol Neb 2.5 Mg/3 Ml) 2.5 mg INH RTQ4H PRN PRN Reason: Wheezing Albuterol/Ipratropium (Ipratropium/Albuterol 3 Ml Neb) 3 ml INH RTQID PRN PRN Reason: Shortness of Air/Wheezing Aspirin (Aspirin Chew 81 Mg Tablet) 81 mg PO DAILY [facility] Last Admin: 01/05/21 09:29 Dose: 81 mg Documented by: Atorvastatin Calcium (Atorvastatin 40 Mg Tablet) 80 mg PO QPM [facility] Last Admin: 01/04/21 20:56 Dose: 80 mg Documented by: Enoxaparin Sodium (Enoxaparin 40 Mg/0.4 Ml Syringe) 40 mg SUBQ DAILY [facility] Last Admin: 01/05/21 09:31 Dose: 40 mg Documented by: Hydralazine HCl (Hydralazine Inj 20 Mg/Ml Vial) 10 mg IVP Q6H PRN PRN Reason: Hypertensive Emergency Last Admin: 01/05/21 00:57 Dose: 10 mg Documented by: Piperacillin Sod/Tazobactam (Sod 3.375 gm/ Sodium Chloride) 100 mls @ 25 mls/hr IV Q8H [facility] Last Admin: 01/05/21 09:37 Dose: 25 mls/hr Documented by: Sodium Chloride (Normal Saline 0.9%) 1,000 mls @ 100 mls/hr IV .Q10H [facility] Stop: 01/06/21 08:06 Last Admin: 01/05/21 12:10 Dose: 100 mls/hr Documented by: Metoprolol Tartrate (Metoprolol Tartrate 25 Mg Tablet) 25 mg PO DAILY [facility] Last Admin: 01/05/21 09:31 Dose: 25 mg Documented by: Morphine Sulfate (Morphine 2 Mg/Ml Carpuject) 2 mg IVP Q2HR PRN PRN Reason: Pain 8 to 10 Last Admin: 01/05/21 04:49 Dose: 2 mg Documented by: Multivitamins (Multivitamin Tablet) 1 tab PO DAILYWM [facility] Last Admin: 01/05/21 09:30 Dose: 1 tab Documented by: Nitroglycerin (Nitroglycerin Sl 0.4 Mg Tablet) 0.4 mg SL Q5MIN PRN PRN Reason: Chest Pain Ondansetron HCl (Ondansetron 4 Mg/2 Ml Vial) 4 mg IVP Q6HR PRN PRN Reason: Nausea / Vomiting Last Admin: 01/05/21 04:38 Dose: 4 mg Documented by: Oxycodone HCl (Oxycodone 5 Mg Tablet) 5 mg PO Q4HR PRN PRN Reason: Pain 5 to 7 Last Admin: 01/05/21 11:43 Dose: 5 mg Documented by: Polyethylene Glycol (Polyethylene Glycol 3350 17 Gm Packet) 17 gm PO DAILY [facility] Last Admin: 01/05/21 09:31 Dose: 17 gm Documented by: Sodium Chloride (Sodium Chloride Flush 0.9% 10 Ml Syringe) 10 ml IVP PRN PRN PRN Reason: NEEDED PER PROVIDER ORDERS Sodium Chloride (Sodium Chloride Flush 0.9% 10 Ml Syringe) 10 ml IVP 01 00,0900,1700 [facility] Last Admin: 01/05/21 09:32 Dose: 10 ml Documented by: Aspirin 81 mg PO DAILY 04/29/18 B Complex W-C No.20/Folic Acid [Mynephron Capsule] 1 cap PO DAILY 04/29/18 Calcium Carbonate [Calcium] 600 mg PO DAILY 04/29/18 Metoprolol Tartrate 25 mg PO DAILY 04/29/18 Atorvastatin Calcium [Lipitor] 80 mg PO QPM 01/04/21 Multivitamin 1 tab PO DAILY 01/04/21
[2021-01-05] MEDS: SODIUM CHLORIDE 0.9% 1,000 ML IV SCH ×2 (12:10→20:39)
[2021-01-05 12:29] LABS: ABNORMAL LYMPHS % (MANUAL) 17 %; LYMPHOCYTES # (MANUAL) 26.9 10^3/uL (1.5-3.5); LYMPHOCYTES % (MANUAL) 45 %; MONOCYTES # (MANUAL) 3.5 10^3/uL (0.0-1.0); RBC MORPHOLOGY (MULTIPLE) NORMAL APPEARANCE (NORMAL)
[2021-01-05 12:30] LABS: DIFFERENTIAL COMMENT MANUAL DIFFERENTIAL; PLATELET ESTIMATE, MANUAL DECREASED (<130,000) (NORMAL); PLATELET MORPHOLOGY NORMAL APPEARANCE (NORMAL); WBC MORPHOLOGY (MULTIPLE) NORMAL APPEARANCE (NORMAL)
[2021-01-05] MEDS ORDERED: METOPROLOL 5 MG/5 ML VIAL IVP ONE (13:00)
--- NOTE | 2021-01-05 14:49 | PROVIDER PROGRESS NOTE ---
Subjective - Prog Note Date Prog Note Date: 01/05/21 - Subjective Pt reports feeling: Improved (minimal discomfort. not much appetite) Objective - Vital Signs/Intake & Output Reviewed Vital Signs: Yes Vital Signs: Vital Signs x48h Temp Pulse Resp BP BP Pulse Ox 01/05/21 14:02 66 18 126/64 01/05/21 13:47 74 18 133/68 H 01/05/21 13:32 67 18 132/74 H 01/05/21 13:17 132 H 18 115/72 01/05/21 13:12 116 H 18 133/84 H 01/05/21 13:07 105 H 18 128/74 01/05/21 13:02 117 H 18 118/105 H 01/05/21 12:59 128/85 H 01/05/21 12:55 118 H 18 125/85 H 01/05/21 11:36 37.6 C 72 18 137/66 H 97 01/05/21 09:31 162/83 H 01/05/21 07:35 37.0 C 87 18 162/83 H 96 Intake & Output: Intake & Output 01/02/21 01/03/21 01/04/21 01/05/21 23:59 23:59 23:59 23:59 Intake Total 100 3005 1776.388 Output Total 100 1330 650 Balance 0 1675 1126.388 - Objective General Appearance: positive: No acute distress, Alert Eyes Bilateral: positive: PERRL, EOMI, No scleral icterus ENT: positive: No signs of dehydration Neck: positive: No JVD Respiratory: positive: No respiratory distress Abdomen: positive: Non-tender, Other (moderate distension. soft benign abdomen periumibical ecchymosis without hematoma or change. lima scant serosanguinous) - Lab Results Fish Bones: 01/05/21 11:48 01/05/21 05:19 Other Labs: Lab Results x24hrs 01/05/21 01/05/21 01/05/21 Range/Units 13:04 11:48 05:19 WBC 43.4 H* (4.8-10.8) x10^3/uL RBC 3.87 L (4.70-6.10) 10^6/uL Hgb 12.2 L (14.0-18.0) g/dL Hct 37.1 L (42.0-52.0) % MCV 95.9 H (80.0-94.0) fL MCH 31.5 H (27.0-31.0) pg MCHC 32.9 (32.0-36.0) g/dL RDW 15.9 H (12.0-15.0) % Plt Count 86 L (130-450) 10^3/uL MPV 9.3 (7.4-11.4) fL Neut # (Auto) Not Reportable Lymph # (Auto) Not Reportable [place] # (Auto) Not Reportable Eos # (Auto) Not Reportable Baso # (Auto) Not Reportable Absolute Nucleated RBC Not Reportable Total Counted 100 Band Neuts % (Manual) 0 (0 - 10) % Abnorm Lymph % (Manual) 17 % Nucleated RBC % Not Reportable Neutrophils # (Manual) 13.0 H (1.5-6.6) 10^3/uL Lymphocytes # (Manual) 26.9 H (1.5-3.5) 10^3/uL Monocytes # (Manual) 3.5 H (0.0-1.0) 10^3/uL Eosinophils # (Manual) 0.0 (0-0.7) 10^3/uL Basophils # (Manual) 0.0 (0-0.1) 10^3/uL Differential Comment MANUAL DIFFERENTIAL WBC Morphology NORMAL APPEARANCE (NORMAL) Platelet Estimate DECREASED (<130,000) (NORMAL) Platelet Morphology NORMAL APPEARANCE (NORMAL) RBC Morph Micro Appear NORMAL APPEARANCE (NORMAL) Sodium (135-145) mmol/L Potassium (3.5-5.0) mmol/L Chloride (101-111) mmol/L Carbon Dioxide (21-32) mmol/L Anion Gap (6-13) BUN (6-20) mg/dL Creatinine (0.6-1.2) mg/dL Estimated GFR (MDRD) (>89) Glucose (70-100) mg/dL Calcium (8.5-10.3) mg/dL Total Bilirubin (0.2-1.0) mg/dL Direct Bilirubin 2.0 H (0.1-0.5) mg/dL AST (10-42) IU/L ALT (10-60) IU/L Alkaline Phosphatase (42-121) IU/L Troponin I High Sens 46.0 H* (2.3-19.7) ng/L Total Protein (6.7-8.2) g/dL Albumin (3.2-5.5) g/dL Globulin (2.1-4.2) g/dL Albumin/Globulin Ratio (1.0-2.2) 01/05/21 01/05/21 Range/Units 05:19 05:19 WBC 51.5 H* (4.8-10.8) x10^3/uL RBC 4.17 L (4.70-6.10) 10^6/uL Hgb 13.2 L (14.0-18.0) g/dL Hct 39.8 L (42.0-52.0) % MCV 95.4 H (80.0-94.0) fL MCH 31.7 H (27.0-31.0) pg MCHC 33.2 (32.0-36.0) g/dL RDW 15.8 H (12.0-15.0) % Plt Count 113 L (130-450) 10^3/uL MPV 9.7 (7.4-11.4) fL Neut # (Auto) Not Reportable Lymph # (Auto) Not Reportable [place] # (Auto) Not Reportable Eos # (Auto) Not Reportable Baso # (Auto) Not Reportable Absolute Nucleated RBC Not Reportable Total Counted 100 Band Neuts % (Manual) 0 (0 - 10) % Abnorm Lymph % (Manual) 1 % Nucleated RBC % Not Reportable Neutrophils # (Manual) 13.4 H (1.5-6.6) 10^3/uL Lymphocytes # (Manual) 35.0 H (1.5-3.5) 10^3/uL Monocytes # (Manual) 3.1 H (0.0-1.0) 10^3/uL Eosinophils # (Manual) 0.0 (0-0.7) 10^3/uL Basophils # (Manual) 0.0 (0-0.1) 10^3/uL Differential Comment MANUAL DIFFERENTIAL WBC Morphology NORMAL APPEARANCE (NORMAL) Platelet Estimate DECREASED (<130,000) (NORMAL) Platelet Morphology NORMAL APPEARANCE (NORMAL) RBC Morph Micro Appear NORMAL APPEARANCE (NORMAL) Sodium 139 (135-145) mmol/L Potassium 4.0 (3.5-5.0) mmol/L Chloride 103 (101-111) mmol/L Carbon Dioxide 25 (21-32) mmol/L Anion Gap 11.0 (6-13) BUN 26 H (6-20) mg/dL Creatinine 1.0 (0.6-1.2) mg/dL Estimated GFR (MDRD) 71 L (>89) Glucose 124 H (70-100) mg/dL Calcium 8.5 (8.5-10.3) mg/dL Total Bilirubin 4.9 H (0.2-1.0) mg/dL Direct Bilirubin (0.1-0.5) mg/dL AST 42 (10-42) IU/L ALT 40 (10-60) IU/L Alkaline Phosphatase 79 (42-121) IU/L Troponin I High Sens (2.3-19.7) ng/L Total Protein 5.8 L (6.7-8.2) g/dL Albumin 3.5 (3.2-5.5) g/dL Globulin 2.3 (2.1-4.2) g/dL Albumin/Globulin Ratio 1.5 (1.0-2.2) Sepsis Event Note (H) - Evaluation Current Stage of Sepsis: Sepsis Possible source of Sepsis: positive: GI tract/intra-abdominal - Sepsis Criteria Sepsis Criteria: Recorded Temperature greater than 38.3C or Less than 36C, WBC count greater than 12,000 or less than 4000 Assessment/Plan - Problem List (1) Acute cholecystitis Impression: ileus. benign abdomen. clears recheck labs tomorrow home when tolerating adequate diet continue ivf
[2021-01-05] MEDS: ATORVASTATIN 40 MG TABLET PO SCH (20:42)
[2021-01-05] MEDS: METOPROLOL TARTRATE 25 MG TABLET PO SCH (20:42)
[2021-01-06] MEDS: oxyCODONE 5 MG TABLET PO PRN ×2 (00:26→20:25)
[2021-01-06] MEDS: SODIUM CHLORIDE FLUSH 0.9% 10 ML SYRINGE IVP SCH ×4 (00:30→23:39)
[2021-01-06] MEDS: PIPERACILLIN/TAZOBACTAM 3.375 GM in SODIUM CHLORIDE 0.9% MINIBAG 100 ML IV SCH ×3 (02:12→18:06)
[2021-01-06] MEDS: ONDANSETRON 4 MG/2 ML VIAL IVP PRN ×2 (02:20→23:56)
[2021-01-06] MEDS: SODIUM CHLORIDE FLUSH 0.9% 10 ML SYRINGE IVP PRN ×3 (02:21→23:56)
[2021-01-06] MEDS: MORPHINE 2 MG/ML CARPUJECT IVP PRN ×3 (03:09→23:39)
[2021-01-06 06:25] LABS: BASOPHILS # (AUTO) 0.1 10^3/uL (0.0-0.1); BASOPHILS % (AUTO) 0.3 %; HCT - HEMATOCRIT 32.5 % (42.0-52.0); HGB - HEMOGLOBIN 10.6 g/dL (14.0-18.0); LYMPHOCYTES # (AUTO) 26.6 10^3/uL (1.5-3.5); LYMPHOCYTES % (AUTO) 61.7 %; MEAN CORPUSCULAR HEMOGLOBIN 31.5 pg (27.0-31.0); MEAN CORPUSCULAR HGB CONC 32.6 g/dL (32.0-36.0); MEAN CORPUSCULAR VOLUME 96.4 fL (80.0-94.0); MEAN PLATELET VOLUME 9.6 fL (7.4-11.4); MONOCYTES # (AUTO) 3.5 10^3/uL (0.0-1.0); MONOCYTES % (AUTO) 8.1 %; NEUTROPHILS # (AUTO) 12.1 10^3/uL (1.5-6.6); NEUTROPHILS % (AUTO) 27.9 %; PLT - PLATELET COUNT 113 10^3/uL (130-450); RED BLOOD COUNT 3.37 10^6/uL (4.70-6.10); RED CELL DISTRIBUTION WIDTH 15.7 % (12.0-15.0)
[2021-01-06 06:29] LABS: WHITE BLOOD COUNT 43.1 x10^3/uL (4.8-10.8)
[2021-01-06 06:36] LABS: ALBUMIN/GLOBULIN RATIO 1.4 (1.0-2.2); BILIRUBIN,TOTAL 4.7 mg/dL (0.2-1.0); CALCIUM 8.3 mg/dL (8.5-10.3); POTASSIUM 3.8 mmol/L (3.5-5.0); TOTAL PROTEIN 5.2 g/dL (6.7-8.2)
[2021-01-06 08:03] LABS: DIFFERENTIAL COMMENT MANUAL=AUTO DIFF; PLATELET ESTIMATE, MANUAL DECREASED (<130,000) (NORMAL); PLATELET MORPHOLOGY NORMAL APPEARANCE (NORMAL); RBC MORPHOLOGY (MULTIPLE) 1+ ANISOCYTOSIS (NORMAL); WBC MORPHOLOGY (MULTIPLE) 1+ SMUDGE CELLS (NORMAL)
[2021-01-06] MEDS: MULTIVITAMIN TABLET PO SCH (08:11)
[2021-01-06] MEDS: METOPROLOL TARTRATE 25 MG TABLET PO SCH ×2 (08:13→20:25)
[2021-01-06] MEDS: ASPIRIN CHEW 81 MG TABLET PO SCH (08:14)
[2021-01-06] MEDS: polyethylene glycoL 3350 17 GM PACKET PO SCH (08:14)
[2021-01-06] MEDS: ENOXAPARIN 40 MG/0.4 ML SYRINGE SUBQ SCH (08:18)
--- NOTE | 2021-01-06 11:57 | PROVIDER PROGRESS NOTE ---
Subjective - Prog Note Date Prog Note Date: 01/06/21 Prog Note Time: 12:35 - Subjective Subjective: he is just "tired" and suprapubic area continues to be his most painful part. NO appetite. Refuses to get up to sit in chair or move around. I "just don't want to" Current Medications - Current Medications Current Medications: Active Medications Acetaminophen (Acetaminophen 325 Mg Tablet) 650 mg PO Q4HR PRN PRN Reason: Pain 1 to 4 Last Admin: 01/05/21 11:44 Dose: 650 mg Documented by: Albuterol (Albuterol Neb 2.5 Mg/3 Ml) 2.5 mg INH RTQ4H PRN PRN Reason: Wheezing Albuterol/Ipratropium (Ipratropium/Albuterol 3 Ml Neb) 3 ml INH RTQID PRN PRN Reason: Shortness of Air/Wheezing Aspirin (Aspirin Chew 81 Mg Tablet) 81 mg PO DAILY [facility] Last Admin: 01/06/21 08:14 Dose: 81 mg Documented by: Atorvastatin Calcium (Atorvastatin 40 Mg Tablet) 80 mg PO QPM [facility] Last Admin: 01/05/21 20:42 Dose: 80 mg Documented by: Enoxaparin Sodium (Enoxaparin 40 Mg/0.4 Ml Syringe) 40 mg SUBQ DAILY [facility] Last Admin: 01/06/21 08:18 Dose: 40 mg Documented by: Hydralazine HCl (Hydralazine Inj 20 Mg/Ml Vial) 10 mg IVP Q6H PRN PRN Reason: Hypertensive Emergency Last Admin: 01/05/21 00:57 Dose: 10 mg Documented by: Piperacillin Sod/Tazobactam (Sod 3.375 gm/ Sodium Chloride) 100 mls @ 25 mls/hr IV Q8H [facility] Last Admin: 01/06/21 11:01 Dose: 25 mls/hr Documented by: Lactated Ringer's (Lr) 1,000 mls @ 125 mls/hr IV .Q8H [facility] Stop: 01/06/21 19:59 Metoprolol Tartrate (Metoprolol Tartrate 25 Mg Tablet) 25 mg PO BID [facility] Last Admin: 01/06/21 08:13 Dose: Not Given Documented by: Morphine Sulfate (Morphine 2 Mg/Ml Carpuject) 2 mg IVP Q2HR PRN PRN Reason: Pain 8 to 10 Last Admin: 10/16/21 03:09 Dose: 2 mg Documented by: Multivitamins (Multivitamin Tablet) 1 tab PO DAILYWM [facility] Last Admin: 01/06/21 08:11 Dose: 1 tab Documented by: Nitroglycerin (Nitroglycerin Sl 0.4 Mg Tablet) 0.4 mg SL Q5MIN PRN PRN Reason: Chest Pain Ondansetron HCl (Ondansetron 4 Mg/2 Ml Vial) 4 mg IVP Q6HR PRN PRN Reason: Nausea / Vomiting Last Admin: 01/06/21 02:20 Dose: 4 mg Documented by: Oxycodone HCl (Oxycodone 5 Mg Tablet) 5 mg PO Q4HR PRN PRN Reason: Pain 5 to 7 Last Admin: 01/06/21 00:26 Dose: 5 mg Documented by: Polyethylene Glycol (Polyethylene Glycol 3350 17 Gm Packet) 17 gm PO DAILY [facility] Last Admin: 01/06/21 08:14 Dose: 17 gm Documented by: Sodium Chloride (Sodium Chloride Flush 0.9% 10 Ml Syringe) 10 ml IVP PRN PRN PRN Reason: NEEDED PER PROVIDER ORDERS Last Admin: 01/06/21 03:09 Dose: 10 ml Documented by: Sodium Chloride (Sodium Chloride Flush 0.9% 10 Ml Syringe) 10 ml IVP 0100,0900,1700 [facility] Last Admin: 01/06/21 08:22 Dose: 10 ml Documented by: Aspirin 81 mg PO DAILY 04/29/18 B Complex W-C No.20/Folic Acid [Mynephron Capsule] 1 cap PO DAILY 04/29/18 Calcium Carbonate [Calcium] 600 mg PO DAILY 04/29/18 Metoprolol Tartrate 25 mg PO DAILY 04/29/18 Atorvastatin Calcium [Lipitor] 80 mg PO QPM 01/04/21 Multivitamin 1 tab PO DAILY 01/04/21 Objective - Vital Signs/Intake & Output Reviewed Vital Signs: Yes Vital Signs: Vital Signs x48h Temp Pulse Resp BP BP Pulse Ox 01/06/21 11:41 37.4 C 53 L 18 124/49 L 95 01/06/21 08:15 36.8 C 67 18 135/61 H 96 01/06/21 08:13 115/57 L 01/06/21 05:00 36.5 C 89 18 164/67 H 94 Intake & Output: Intake & Output 01/03/21 01/04/21 01/05/21 01/06/21 23:59 23:59 23:59 23:59 Intake Total 100 3005 3099.721 1110 Output Total 100 1330 850 250 Balance 0 1675 2249.721 860 - Objective General Appearance: positive: Alert, Other (elderly fatigued appearing man, slightly deaf) Eyes Bilateral: positive: PERRL, EOMI ENT: positive: No signs of dehydration Neck: positive: No JVD. negative: Stiff neck Respiratory: positive: No respiratory distress, Other (unlabored respiration, slow.). negative: Wheezes, Rales, Rhonchi Cardiovascular: positive: Regular rate & rhythm, Systolic murmur. negative: Gallop/S4, Friction rub Abdomen: positive: No organomegaly, Tenderness (around umbilicus trochar site. and suprapubic area. more around suprapubic area.), Abnml bowel sounds (hypoactive), Other (skin around umbilicus has huge bruise). negative: Guarding, Rebound Skin: positive: Warm, Dry Extremities: positive: Full ROM Neurologic/Psychiatric: positive: CN's nml (2-12), Disoriented to place (occasionally), Disoriented to time. negative: Motor nml (off balance when he sits up in bed. wants to fall backward.) - Lab Results Fish Bones: 01/06/21 06:00 01/06/21 06:00 Other Labs: Lab Results x24hrs 01/06/21 01/06/21 01/05/21 Range/Units 06:00 06:00 13:04 WBC 43.1 H* (4.8-10.8) x10^3/uL RBC 3.37 L (4.70-6.10) 10^6/uL Hgb 10.6 L (14.0-18.0) g/dL Hct 32.5 L (42.0-52.0) % MCV 96.4 H (80.0-94.0) fL MCH 31.5 H (27.0-31.0) pg MCHC 32.6 (32.0-36.0) g/dL RDW 15.7 H (12.0-15.0) % Plt Count 113 L (130-450) 10^3/uL MPV 9.6 (7.4-11.4) fL Neut # (Auto) 12.1 H Lymph # (Auto) 26.6 H [place] # (Auto) 3.5 H Eos # (Auto) 0.0 Baso # (Auto) 0.1 Absolute Nucleated RBC 0.00 Total Counted Band Neuts % (Manual) Not Reportable (0 - 10) % Abnorm Lymph % (Manual) Not Reportable % Nucleated RBC % 0.0 Neutrophils # (Manual) Not Reportable (1.5-6.6) 10^3/uL Lymphocytes # (Manual) Not Reportable (1.5-3.5) 10^3/uL Monocytes # (Manual) Not Reportable (0.0-1.0) 10^3/uL Eosinophils # (Manual) Not Reportable (0-0.7) 10^3/uL Basophils # (Manual) Not Reportable (0-0.1) 10^3/uL Differential Comment MANUAL=AUTO DIFF WBC Morphology 1+ SMUDGE CELLS (NORMAL) Platelet Estimate DECREASED (<130,000) (NORMAL) Platelet Morphology NORMAL APPEARANCE (NORMAL) RBC Morph Micro Appear 1+ ANISOCYTOSIS (NORMAL) Sodium 145 (135-145) mmol/L Potassium 3.8 (3.5-5.0) mmol/L Chloride 112 H (101-111) mmol/L Carbon Dioxide 24 (21-32) mmol/L Anion Gap 9.0 (6-13) BUN 34 H (6-20) mg/dL Creatinine 1.0 (0.6-1.2) mg/dL Estimated GFR (MDRD) 71 L (>89) Glucose 132 H (70-100) mg/dL Calcium 8.3 L (8.5-10.3) mg/dL Total Bilirubin 4.7 H (0.2-1.0) mg/dL AST 35 (10-42) IU/L ALT 30 (10-60) IU/L Alkaline Phosphatase 66 (42-121) IU/L Troponin I High Sens 46.0 H* (2.3-19.7) ng/L Total Protein 5.2 L (6.7-8.2) g/dL Albumin 3.0 L (3.2-5.5) g/dL Globulin 2.2 (2.1-4.2) g/dL Albumin/Globulin Ratio 1.4 (1.0-2.2) 01/05/21 Range/Units 11:48 WBC 43.4 H* (4.8-10.8) x10^3/uL RBC 3.87 L (4.70-6.10) 10^6/uL Hgb 12.2 L (14.0-18.0) g/dL Hct 37.1 L (42.0-52.0) % MCV 95.9 H (80.0-94.0) fL MCH 31.5 H (27.0-31.0) pg MCHC 32.9 (32.0-36.0) g/dL RDW 15.9 H (12.0-15.0) % Plt Count 86 L (130-450) 10^3/uL MPV 9.3 (7.4-11.4) fL Neut # (Auto) Not Reportable Lymph # (Auto) Not Reportable [place] # (Auto) Not Reportable Eos # (Auto) Not Reportable Baso # (Auto) Not Reportable Absolute Nucleated RBC Not Reportable Total Counted 100 Band Neuts % (Manual) 0 (0 - 10) % Abnorm Lymph % (Manual) 17 % Nucleated RBC % Not Reportable Neutrophils # (Manual) 13.0 H (1.5-6.6) 10^3/uL Lymphocytes # (Manual) 26.9 H (1.5-3.5) 10^3/uL Monocytes # (Manual) 3.5 H (0.0-1.0) 10^3/uL Eosinophils # (Manual) 0.0 (0-0.7) 10^3/uL Basophils # (Manual) 0.0 (0-0.1) 10^3/uL Differential Comment MANUAL DIFFERENTIAL WBC Morphology NORMAL APPEARANCE (NORMAL) Platelet Estimate DECREASED (<130,000) (NORMAL) Platelet Morphology NORMAL APPEARANCE (NORMAL) RBC Morph Micro Appear NORMAL APPEARANCE (NORMAL) Sodium (135-145) mmol/L Potassium (3.5-5.0) mmol/L Chloride (101-111) mmol/L Carbon Dioxide (21-32) mmol/L Anion Gap (6-13) BUN (6-20) mg/dL Creatinine (0.6-1.2) mg/dL Estimated GFR (MDRD) (>89) Glucose (70-100) mg/dL Calcium (8.5-10.3) mg/dL Total Bilirubin (0.2-1.0) mg/dL AST (10-42) IU/L ALT (10-60) IU/L Alkaline Phosphatase (42-121) IU/L Troponin I High Sens (2.3-19.7) ng/L Total Protein (6.7-8.2) g/dL Albumin (3.2-5.5) g/dL Globulin (2.1-4.2) g/dL Albumin/Globulin Ratio (1.0-2.2) ABX Reporting Has patient been on IV antibiotics over the past 48 hours?: No Sepsis Event Note (H) - Evaluation Current Stage of Sepsis: Resolved Possible source of Sepsis: positive: GI tract/intra-abdominal - Sepsis Criteria Sepsis Criteria: Recorded Temperature greater than 38.3C or Less than 36C, WBC count greater than 12,000 or less than 4000 Assessment/Plan - Problem List (1) Acute cholecystitis Impression: He presented his right upper quadrant pain that radiated to the shoulders, and CT confirmed acute cholecystitis. Elevated white cell count. No fever. He was started on single agent Zosyn. Went to the operating room on the day of admission. He is postoperative day #3 today. He had a low-grade fever and elevated white cell count has been quite high. He is slow to move. Does not want to get out of bed. Not eating very much, a few bites to 25% of food. IV fluids have been started and stopped. His BUN is creeping up a bit today at 34. Cognitive deficit is a problem for him. Plan: General surgery continues to see the patient. Postoperative day #3 Day #4 of Zosyn Continue incentive spirometry On clear liquid diet Slow to move: will order PT/OT (2)leukocytosis Patient's WBC is elevated to 51.5 then down to 43.4. pt has hx of CLL. pt report he saw his oncologist Dr. Umer Eisenberg on November 11. 01/[address] Umer Eisenberg, updated pt's medical conditions. Dr. Umer Eisenberg believe this elevated WBC is reaction to infection and surgical stress, suggest to continue lab monitor. That hospitalists also consulted with our [facility] 01/05 oncologist, he suggest possible reaction and suggest to do peripheral smear study to see if pt has Smudge cells. We have ordered peripheral smear study and are awaiting a report, continue to monitor WBC, continue antibiotics at this point. (3) HTN (hypertension) Conclusion/Plan: we will hold his Metoprolol, since his HR is at low arrange, Add hydralazine as needed. Resolved, stable problems: (4)sepsis resolved. Patient presented as low degree of fever, significant had elevated WBC, Ch olecystitis with gross purulence. We will continue antibiotics Zosyn, IV fluids, continue laboratory and vital signs monitor closely (5) Hx of bladder cancer Conclusion/Plan: Patient has a history of bladder cancer, he reported he had appointment next week Friday To see his oncologist. Advised patient continue follow-up. Now patient can urinate and stable. will order UA (6) Hx of chronic lymphocytic leukemia Conclusion/Plan: 01/05, As above, I called patient's oncologist and discussed the care plan. Per patient's oncologist suggestion, we will do cytogenetics laboratory manager. oncologist believe this is a reaction to the infection and surgical stress Stable, patient may continue follow-up his oncologist. He is elevated WBC which is likely reactive from his infection, acute cholecystitis. (7) Hx of coronary artery disease Conclusion/Plan: Patient's upper abdominal pain, and bilateral shoulder pain are likely caused by his acute Cholecystitis. EKG and troponin are negative for TX. pt had recently ECHO study show reserved EF and stress test was stable. resume home aspirin, co ntinue tele monitor and vital monitor. (8) COPD (chronic obstructive pulmonary disease) Conclusion/Plan: pt report he took inhaler PRN at home, no home oxygen needed. pt has 100% O2 sats on room air. pt is stable, no acute respiratory distress.
[2021-01-06] MEDS ORDERED: LACTATED RINGERS 1,000 ML IV SCH (12:00)
[2021-01-06] MEDS: ACETAMINOPHEN 325 MG TABLET PO PRN (13:16)
--- NOTE | 2021-01-06 16:48 | PROVIDER PROGRESS NOTE ---
Subjective - General Admit Date: 01/03/21 Procedure Date: 01/03/21 Post Op Days: 3 Procedure Performed: Laparoscopic cholecystectomy - Review of Systems Wound/Incisions: positive: Healing well, Other (Significant and impressive bruising below the umbilicus.) Drain Type: Steven Drain Output Description: Scant serosanguineous Gastrointestinal: positive: Abdominal pain, Flatus. negative: Nausea, Vomiting All Other Systems: positive: Reviewed and negative Objective - Patient Data Vital Signs: Vital Signs x48h Temp Pulse Pulse Resp BP BP Pulse Ox 01/06/21 16:39 27.0 C L 59 L 16 125/51 L 95 01/06/21 12:00 54 L 140/54 H 01/06/21 11:41 37.4 C 53 L 18 124/49 L 95 Intake & Output: Intake and Output Totals x24h 01/04/21 01/05/21 01/06/21 23:59 23:59 23:59 Intake Total 3005 3099.721 1450 Output Total 1330 850 250 Balance 1675 2249.721 1200 - Lab Results Lab Results: 01/06/21 06:00 01/06/21 06:00 Other Lab Results: Lab Results x24hrs 01/06/21 01/06/21 Range/Units 06:00 06:00 WBC 43.1 H* (4.8-10.8) x10^3/uL RBC 3.37 L (4.70-6.10) 10^6/uL Hgb 10.6 L (14.0-18.0) g/dL Hct 32.5 L (42.0-52.0) % MCV 96.4 H (80.0-94.0) fL MCH 31.5 H (27.0-31.0) pg MCHC 32.6 (32.0-36.0) g/dL RDW 15.7 H (12.0-15.0) % Plt Count 113 L (130-450) 10^3/uL MPV 9.6 (7.4-11.4) fL Neut # (Auto) 12.1 H (1.5-6.6) 10^3/uL Lymph # (Auto) 26.6 H (1.5-3.5) 10^3/uL [place] # (Auto) 3.5 H (0.0-1.0) 10^3/uL Eos # (Auto) 0.0 (0.0-0.7) 10^3/uL Baso # (Auto) 0.1 (0.0-0.1) 10^3/uL Absolute Nucleated RBC 0.00 x10^3/uL Band Neuts % (Manual) Not Reportable Abnorm Lymph % (Manual) Not Reportable Nucleated RBC % 0.0 /100WBC Neutrophils # (Manual) Not Reportable Lymphocytes # (Manual) Not Reportable Monocytes # (Manual) Not Reportable Eosinophils # (Manual) Not Reportable Basophils # (Manual) Not Reportable Differential Comment MANUAL=AUTO DIFF WBC Morphology 1+ SMUDGE CELLS (NORMAL) Platelet Estimate DECREASED (<130,000) (NORMAL) Platelet Morphology NORMAL APPEARANCE (NORMAL) RBC Morph Micro Appear 1+ ANISOCYTOSIS (NORMAL) Sodium 145 (135-145) mmol/L Potassium 3.8 (3.5-5.0) mmol/L Chloride 112 H (101-111) mmol/L Carbon Dioxide 24 (21-32) mmol/L Anion Gap 9.0 (6-13) BUN 34 H (6-20) mg/dL Creatinine 1.0 (0.6-1.2) mg/dL Estimated GFR (MDRD) 71 L (>89) Glucose 132 H (70-100) mg/dL Calcium 8.3 L (8.5-10.3) mg/dL Total Bilirubin 4.7 H (0.2-1.0) mg/dL AST 35 (10-42) IU/L ALT 30 (10-60) IU/L Alkaline Phosphatase 66 (42-121) IU/L Total Protein 5.2 L (6.7-8.2) g/dL Albumin 3.0 L (3.2-5.5) g/dL Globulin 2.2 (2.1-4.2) g/dL Albumin/Globulin Ratio 1.4 (1.0-2.2) - Current Medications Current Medications: Current Medications Generic Name Dose Route Start Last Admin Trade Name Freq PRN Reason Stop Dose Admin Acetaminophen 650 mg 01/03/21 16:49 01/06/21 13:16 Acetaminophen 325 Mg Tablet PO 650 mg Q4HR PRN Administration Pain 1 to 4 Aspirin 81 mg 01/04/21 09:00 01/06/21 08:14 Aspirin Chew 81 Mg Tablet PO 81 mg DAILY DANA Administration Atorvastatin Calcium 80 mg 01/04/21 21:00 01/05/21 20:42 Atorvastatin 40 Mg Tablet PO 80 mg QPM DANA Administration Enoxaparin Sodium 40 mg 01/05/21 09:00 01/06/21 08:18 Enoxaparin 40 Mg/0.4 Ml Syringe SUBQ 40 mg DAILY DANA Administration Hydralazine HCl 10 mg 01/03/21 16:59 01/05/21 00:57 Hydralazine Inj 20 Mg/Ml Vial IVP 10 mg Q6H PRN Administration Hypertensive Emergency Piperacillin Sod/Tazobactam 100 mls @ 25 mls/hr 01/03/21 18:00 01/06/21 15:04 Sod 3.375 gm/ Sodium Chloride IV Infused Q8H DANA Infusion Lactated Ringer's 1,000 mls @ 125 mls/hr 01/06/21 12:00 01/06/21 15:00 Lr IV 01/06/21 19:59 125 mls/hr .Q8H DANA Administration Metoprolol Tartrate 25 mg 01/05/21 21:00 01/06/21 08:13 Metoprolol Tartrate 25 Mg Tablet PO Not Given BID DANA Morphine Sulfate 2 mg 01/03/21 16:49 01/06/21 03:09 Morphine 2 Mg/Ml Carpuject IVP 2 mg Q2HR PRN Administration Pain 8 to 10 Multivitamins 1 tab 01/05/21 08:00 01/06/21 08:11 Multivitamin Tablet PO 1 tab DAILYWM DANA Administration Ondansetron HCl 4 mg 01/03/21 16:49 01/06/21 02:20 Ondansetron 4 Mg/2 Ml Vial IVP 4 mg Q6HR PRN Administration Nausea / Vomiting Oxycodone HCl 5 mg 01/03/21 16:49 01/06/21 00:26 Oxycodone 5 Mg Tablet PO 5 mg Q4HR PRN Administration Pain 5 to 7 Polyethylene Glycol 17 gm 01/05/21 09:00 01/06/21 08:14 Polyethylene Glycol 3350 17 Gm Packet PO 17 gm DAILY DANA Administration Sodium Chloride 10 ml 01/03/21 16:49 01/06/21 03:09 Sodium Chloride Flush 0.9% 10 Ml Syringe IVP 10 ml PRN PRN Administration NEEDED PER PROVIDER ORDERS Sodium Chloride 10 ml 01/03/21 17:00 01/06/21 08:22 Sodium Chloride Flush 0.9% 10 Ml Syringe IVP 10 ml 0100,0900,1700 DANA Administration - Physical Exam Wound/Incisions: positive: Healing well General Appearance: positive: No acute distress, Lethargic Eyes Bilateral: positive: Normal inspection Respiratory: positive: Chest non-tender, No respiratory distress, Breath sounds nml Abdomen: positive: Tenderness, Other (Drain stripped and shortened with return of copious bloody fluid.). negative: Guarding, Rebound ABX Reporting Has patient been on IV antibiotics over the past 48 hours?: Yes Impression/Plan - Problem List Problem List: Acute, gangrenous cholecystitis. Drain working and should help with discomfort. Very bloody drainage. Elevated bilirubin but other liver functions are reassuring. Hopefully bili will begin to return to normal over the next couple of days. Likely multifactorial with acute hepatic inflammation and re- absorption of heme. Pain is well controlled. Will follow carefully. Recheck labs in the AM
[2021-01-06] MEDS: ATORVASTATIN 40 MG TABLET PO SCH (20:24)
[2021-01-07] MEDS: PIPERACILLIN/TAZOBACTAM 3.375 GM in SODIUM CHLORIDE 0.9% MINIBAG 100 ML IV SCH ×3 (02:15→18:12)
[2021-01-07] MEDS: SODIUM CHLORIDE FLUSH 0.9% 10 ML SYRINGE IVP PRN ×2 (02:27→19:52)
[2021-01-07] MEDS: MORPHINE 2 MG/ML CARPUJECT IVP PRN ×2 (02:27→11:33)
[2021-01-07] MEDS: oxyCODONE 5 MG TABLET PO PRN ×2 (05:59→18:16)
[2021-01-07 07:22] LABS: BASOPHILS % (AUTO) 0.1 %; EOSINOPHILS % (AUTO) 0.1 %; HCT - HEMATOCRIT 27.7 % (42.0-52.0); HGB - HEMOGLOBIN 8.9 g/dL (14.0-18.0); LYMPHOCYTES % (AUTO) 61.1 %; MEAN CORPUSCULAR HEMOGLOBIN 31.9 pg (27.0-31.0); MEAN CORPUSCULAR HGB CONC 32.1 g/dL (32.0-36.0); MEAN CORPUSCULAR VOLUME 99.3 fL (80.0-94.0); MEAN PLATELET VOLUME 9.8 fL (7.4-11.4); MONOCYTES % (AUTO) 8.6 %; PLT - PLATELET COUNT 107 10^3/uL (130-450); RED BLOOD COUNT 2.79 10^6/uL (4.70-6.10); RED CELL DISTRIBUTION WIDTH 15.5 % (12.0-15.0)
[2021-01-07 07:24] LABS: ALBUMIN 2.8 g/dL (3.2-5.5); ALBUMIN/GLOBULIN RATIO 1.3 (1.0-2.2); BILIRUBIN,TOTAL 2.9 mg/dL (0.2-1.0); CALCIUM 7.8 mg/dL (8.5-10.3); CREATININE 1.2 mg/dL (0.6-1.2); POTASSIUM 3.5 mmol/L (3.5-5.0); TOTAL PROTEIN 4.9 g/dL (6.7-8.2)
[2021-01-07 07:32] LABS: ABNORMAL LYMPHS % (MANUAL) 0 %; SLIDE REVIEW? Indicated
[2021-01-07 07:47] LABS: BAND NEUTROPHILS % (MANUAL) 1 %; DIFFERENTIAL COMMENT MANUAL DIFFERENTIAL; LYMPHOCYTES # (MANUAL) 16.6 10^3/uL (1.5-3.5); LYMPHOCYTES % (MANUAL) 68 %; MONOCYTES # (MANUAL) 1.2 10^3/uL (0.0-1.0); NEUTROPHILS # (MANUAL) 6.2 10^3/uL (1.5-6.6); REACTIVE LYMPHS % (MANUAL) 1 %
[2021-01-07] MEDS: polyethylene glycoL 3350 17 GM PACKET PO SCH (08:38)
[2021-01-07] MEDS: ENOXAPARIN 40 MG/0.4 ML SYRINGE SUBQ SCH (08:39)
[2021-01-07] MEDS: SODIUM CHLORIDE FLUSH 0.9% 10 ML SYRINGE IVP SCH ×2 (08:39→16:44)
[2021-01-07] MEDS: ASPIRIN CHEW 81 MG TABLET PO SCH (08:39)
[2021-01-07] MEDS: ACETAMINOPHEN 325 MG TABLET PO PRN ×3 (08:39→21:45)
[2021-01-07] MEDS: MULTIVITAMIN TABLET PO SCH (10:03)
[2021-01-07] MEDS: METOPROLOL TARTRATE 25 MG TABLET PO SCH ×2 (10:05→21:46)
--- NOTE | 2021-01-07 13:13 | PROVIDER PROGRESS NOTE ---
Subjective - Prog Note Date Prog Note Date: 01/07/21 Prog Note Time: 13:11 - Subjective Pt reports feeling: No change Subjective: His main complaint continues to be suprapubic pain. Pain around the umbilicus. But no fever, no chills. Appetite is poor. He is weak, tired. came to see him yesterday and she is concerned that she may not be able to take care of him because he is so weak and needs so much help. At home he walks throughout the house. Slowly. Uses a cane or front wheel walker. But because of his peripheral neuropathy, and balance issues it is hard for him to walk too long. He was seen by physical therapy yesterday. Definitely has balance issues and neuropathy issues. He will be seen by physical therapy again today. His last BM is January 02. He still has minimal gas. While in the OR he had a liter of fluid left in his abd cavity due to the blood loss he suffered. He oozed quite a bit and surgicel put on liver. Drain was plugged yesterday and unplugged by surgeon. >1 liter of blood fluid came out yesterday, and a little more drainage today. Clearing up. Current Medications - Current Medications Current Medications: Active Medications Acetaminophen (Acetaminophen 325 Mg Tablet) 650 mg PO Q4HR PRN PRN Reason: Pain 1 to 4 Last Admin: 01/07/21 08:39 Dose: 650 mg Documented by: Albuterol (Albuterol Neb 2.5 Mg/3 Ml) 2.5 mg INH RTQ4H PRN PRN Reason: Wheezing Albuterol/Ipratropium (Ipratropium/Albuterol 3 Ml Neb) 3 ml INH RTQID PRN PRN Reason: Shortness of Air/Wheezing Aspirin (Aspirin Chew 81 Mg Tablet) 81 mg PO DAILY [facility] Last Admin: 01/07/21 08:39 Dose: 81 mg Documented by: Atorvastatin Calcium (Atorvastatin 40 Mg Tablet) 80 mg PO QPM [facility] Last Admin: 01/06/21 20:24 Dose: 80 mg Documented by: Enoxaparin Sodium (Enoxaparin 40 Mg/0.4 Ml Syringe) 40 mg SUBQ DAILY [facility] Last Admin: 01/07/21 08:39 Dose: 40 mg Documented by: Hydralazine HCl (Hydralazine Inj 20 Mg/Ml Vial) 10 mg IVP Q6H PRN PRN Reason: Hypertensive Emergency Last Admin: 01/05/21 00:57 Dose: 10 mg Documented by: Piperacillin Sod/Tazobactam (Sod 3.375 gm/ Sodium Chloride) 100 mls @ 25 mls/hr IV Q8H [facility] Last Admin: 01/07/21 11:27 Dose: 25 mls/hr Documented by: Metoprolol Tartrate (Metoprolol Tartrate 25 Mg Tablet) 25 mg PO BID [facility] Last Admin: 01/07/21 10:05 Dose: Not Given Documented by: Morphine Sulfate (Morphine 2 Mg/Ml Carpuject) 2 mg IVP Q2HR PRN PRN Reason: Pain 8 to 10 Last Admin: 01/07/21 11:33 Dose: 2 mg Documented by: Multivitamins (Multivitamin Tablet) 1 tab PO DAILYWM [facility] Last Admin: 01/07/21 10:03 Dose: 1 tab Documented by: Nitroglycerin (Nitroglycerin Sl 0.4 Mg Tablet) 0.4 mg SL Q5MIN PRN PRN Reason: Chest Pain Ondansetron HCl (Ondansetron 4 Mg/2 Ml Vial) 4 mg IVP Q6HR PRN PRN Reason: Nausea / Vomiting Last Admin: 01/06/21 23:56 Dose: 4 mg Documented by: Oxycodone HCl (Oxycodone 5 Mg Tablet) 5 mg PO Q4HR PRN PRN Reason: Pain 5 to 7 Last Admin: 01/07/21 05:59 Dose: 5 mg Documented by: Polyethylene Glycol (Polyethylene Glycol 3350 17 Gm Packet) 17 gm PO DAILY [facility] Last Admin: 01/07/21 08:38 Dose: 17 gm Documented by: Sodium Chloride (Sodium Chloride Flush 0.9% 10 Ml Syringe) 10 ml IVP PRN PRN PRN Reason: NEEDED PER PROVIDER ORDERS Last Admin: 01/07/21 02:27 Dose: 10 ml Documented by: Sodium Chloride (Sodium Chloride Flush 0.9% 10 Ml Syringe) 10 ml IVP 0100,0900,1700 [facility] Last Admin: 01/07/21 08:39 Dose: 10 ml Documented by: Aspirin 81 mg PO DAILY 04/29/18 B Complex W-C No.20/Folic Acid [Mynephron Capsule] 1 cap PO DAILY 04/29/18 Calcium Carbonate [Calcium] 600 mg PO DAILY 04/29/18 Metoprolol Tartrate 25 mg PO DAILY 04/29/18 Atorvastatin Calcium [Lipitor] 80 mg PO QPM 01/04/21 Multivitamin 1 tab PO DAILY 01/04/21 Objective - Vital Signs/Intake & Output Reviewed Vital Signs: Yes Vital Signs: Vital Signs x48h Temp Pulse Resp BP BP Pulse Ox 01/07/21 11:15 37.1 C 69 18 122/66 95 01/07/21 10:05 115/48 L 01/07/21 08:40 37.5 C 63 18 130/49 L 93 Intake & Output: Intake & Output 01/04/21 01/05/21 01/06/21 01/07/21 23:59 23:59 23:59 23:59 Intake Total 3005 3099.721 2650 560 Output Total 5076 054 4018 2170 Balance 1675 2249.721 1485 -1610 - Objective General Appearance: positive: No acute distress, Alert, Other (But easily confused. Forgets where he is, why he is here, gets a little cranky. Sometimes nursing is having to control him but he is cooperative and can be prompted) Eyes Bilateral: positive: PERRL, EOMI ENT: positive: No signs of dehydration Neck: positive: No JVD. negative: Stiff neck Respiratory: positive: No respiratory distress, Rales (Occasional. At the bases. When he gives a week cough for me they disappear. But then they return), Other (He knows he has to do incentive spirometry and he shows me the canister to make sure I approve of it respiratory therapy is asking him to do). negative: Wheezes, Rhonchi Cardiovascular: positive: Regular rate & rhythm, Systolic murmur. negative: Gallop/S4, Friction rub Abdomen: positive: Tenderness (Suprapubic, umbilical.), Abnml bowel sounds (Hypoactive bowel sounds), Other (periumbilical bruise but no redness or heat or drainage. suprapubic area still aches but less stinging.). negative: Guarding, Rebound Skin: positive: Warm, Dry Extremities: positive: Nml appearance Neurologic/Psychiatric: positive: CN's nml (2-12), Disoriented to person, Disoriented to place, Disoriented to time. negative: Motor nml (he needs a walker and I watched him walk w PT. Deaf and needs prompting. But follows prompts. Cranky today. Not in a good mood) - Lab Results Fish Bones: 01/07/21 06:40 01/07/21 06:40 Other Labs: Lab Results x24hrs 01/07/21 01/07/21 Range/Units 06:40 06:40 WBC 24.0 H (4.8-10.8) x10^3/uL RBC 2.79 L (4.70-6.10) 10^6/uL Hgb 8.9 L (14.0-18.0) g/dL Hct 27.7 L (42.0-52.0) % MCV 99.3 H (80.0-94.0) fL MCH 31.9 H (27.0-31.0) pg MCHC 32.1 (32.0-36.0) g/dL RDW 15.5 H (12.0-15.0) % Plt Count 107 L (130-450) 10^3/uL MPV 9.8 (7.4-11.4) fL Neut # (Auto) Not Reportable Lymph # (Auto) Not Reportable [place] # (Auto) Not Reportable Eos # (Auto) Not Reportable Baso # (Auto) Not Reportable Absolute Nucleated RBC Not Reportable Total Counted 100 Band Neuts % (Manual) 1 (0 - 10) % Reactive Lymphs % (Man) 1 % Abnorm Lymph % (Manual) 0 % Nucleated RBC % Not Reportable Neutrophils # (Manual) 6.2 (1.5-6.6) 10^3/uL Lymphocytes # (Manual) 16.6 H (1.5-3.5) 10^3/uL Monocytes # (Manual) 1.2 H (0.0-1.0) 10^3/uL Eosinophils # (Manual) 0.0 (0-0.7) 10^3/uL Basophils # (Manual) 0.0 (0-0.1) 10^3/uL Differential Comment MANUAL DIFFERENTIAL Manual Slide Review Indicated Sodium 141 (135-145) mmol/L Potassium 3.5 (3.5-5.0) mmol/L Chloride 111 (101-111) mmol/L Carbon Dioxide 25 (21-32) mmol/L Anion Gap 5.0 L (6-13) BUN 37 H (6-20) mg/dL Creatinine 1.2 (0.6-1.2) mg/dL Estimated GFR (MDRD) 57 L (>89) Glucose 102 H (70-100) mg/dL Calcium 7.8 L (8.5-10.3) mg/dL Total Bilirubin 2.9 H (0.2-1.0) mg/dL AST 35 (10-42) IU/L ALT 28 (10-60) IU/L Alkaline Phosphatase 70 (42-121) IU/L Total Protein 4.9 L (6.7-8.2) g/dL Albumin 2.8 L (3.2-5.5) g/dL Globulin 2.1 (2.1-4.2) g/dL Albumin/Globulin Ratio 1.3 (1.0-2.2) ABX Reporting Has patient been on IV antibiotics over the past 48 hours?: Yes Sepsis Event Note (H) - Evaluation Current Stage of Sepsis: Resolved Possible source of Sepsis: positive: GI tract/intra-abdominal - Sepsis Criteria Sepsis Criteria: Recorded Temperature greater than 38.3C or Less than 36C, WBC count greater than 12,000 or less than 4000 Assessment/Plan - Problem List (1) Acute cholecystitis Impression: He presented his right upper quadrant pain that radiated to the shoulders, and CT confirmed acute cholecystitis. Elevated white cell count. No fever. He was started on single agent Zosyn. Went to the operating room on the day of admission. He is postoperative day #4 today. He had a low-grade fever and elevated white cell count has been quite high. WBC is finally dropping once the drain put out > 1 liter. Continues to be slow to move. Does not want to get out of bed. Not eating very much, a few bites to 25% of food. IV fluids have been started and stopped. His BUN is creeping up a bit today at 34. Cognitive deficit is a problem for him. is concerned she cannot take care of him unless he is completely independent again. Surgeon reports he was very dirty when they put him on the OR and needed extensive wipe down to do the case. Plan: General surgery continues to see the patient. Postoperative day #3 Day #4 of Zosyn Continue incentive spirometry On clear liquid diet that will be advanced to regular today by surgery Slow to move: working with PT/OT with idea that he may need rehab according to his previous baseline (2)leukocytosis Patient's WBC is elevated to 51.5 then down to 43.4 and 24 today. pt has hx of CLL. pt report he saw his oncologist Dr. Umer Eisenberg on November 11. 01/[address] Umer Eisenberg, updated pt's medical conditions. Dr. Umer Eisenberg believe this elevated WBC is reaction to infection and surgical stress, suggest to continue lab monitor. That hospitalists also consulted with our [facility] 01[place] oncologist, he suggest possible reaction and suggest to do peripheral smear study to see if pt has Smudge cells. We have ordered peripheral smear study and we continue to await a report, continue to monitor WBC, continue antibiotics at this point. (3) HTN (hypertension) Conclusion/Plan: we will hold his Metoprolol, since his HR is at low arrange, Add hydralazine as needed. (4) Acute blood loss anemia had quite a bit of oozing during the case and his platelets are low. Continue to monitor and transfuse if below 7 Resolved, stable problems: (5)sepsis resolved. Patient presented as low degree of fever, significant had elevated WBC, Cholecystitis with gross purulence. We will continue antibiotics Zosyn, IV fluids, continue laboratory and vital signs monitor closely (6) Hx of bladder cancer Conclusion/Plan: Patient has a history of bladder cancer, he reported he had appointment next week Friday To see his oncologist. Advised patient continue follow-up. Now patient can urinate and stable. will order UA (7) Hx of chronic lymphocytic leukemia Conclusion/Plan: 01/05, As above, I called patient's oncologist and discussed the care plan. Per patient's oncologist suggestion, we will do veterinarian laboratory animal care. oncologist believe this is a reaction to the infection and surgical stress Stable, patient may continue follow-up his oncologist. He is elevated WBC which is likely reactive from his infection, acute cholecystitis. (8) Hx of coronary artery disease Conclusion/Plan: Patient's upper abdominal pain, and bilateral shoulder pain are likely caused by his acute Cholecystitis. EKG and troponin are negative for NC. pt had recently ECHO study show reserved EF and stress test was stable. resume home aspirin, continue tele monitor and vital monitor. (9) COPD (chronic obstructive pulmonary disease) Conclusion/Plan: pt report he took inhaler PRN at home, no home oxygen needed. pt has 100% O2 sats on room air. pt is stable, no acute respiratory distress.
--- NOTE | 2021-01-07 14:51 | PROVIDER PROGRESS NOTE ---
Subjective - General Admit Date: 01/03/21 Procedure Date: 01/03/21 Post Op Days: 4 Procedure Performed: Laparoscopic cholecystectomy - Review of Systems Wound/Incisions: positive: Healing well Drain Type: Steven Drain Output Description: Bloody but clearing Gastrointestinal: positive: Abdominal pain, Flatus. negative: Nausea, Vomiting All Other Systems: positive: Reviewed and negative - Other Other Information/Narrative: Much more awake and alert and interactive today. Talking a good deal about his CLL and would like to see his CBC from today. Says pain is well controlled and he is urinating without difficulty. Worried about his diagnosis of bladder cancer. Objective - Patient Data Reviewed Vital Signs: Yes Vital Signs: Vital Signs x48h Temp Pulse Resp BP BP Pulse Ox 01/07/21 11:15 37.1 C 69 18 122/66 95 01/07/21 10:05 115/48 L 01/07/21 08:40 37.5 C 63 18 130/49 L 93 Intake & Output: Intake and Output Totals x24h 01/05/21 01/06/21 01/07/21 23:59 23:59 23:59 Intake Total 3099.721 2650 560 Output Total 850 1165 2170 Balance 2249.721 1485 -1610 - Lab Results Lab Results: 01/07/21 06:40 01/07/21 06:40 Other Lab Results: Lab Results x24hrs 01/07/21 01/07/21 Range/Units 06:40 06:40 WBC 24.0 H (4.8-10.8) x10^3/uL RBC 2.79 L (4.70-6.10) 10^6/uL Hgb 8.9 L (14.0-18.0) g/dL Hct 27.7 L (42.0-52.0) % MCV 99.3 H (80.0-94.0) fL MCH 31.9 H (27.0-31.0) pg MCHC 32.1 (32.0-36.0) g/dL RDW 15.5 H (12.0-15.0) % Plt Count 107 L (130-450) 10^3/uL MPV 9.8 (7.4-11.4) fL Neut # (Auto) Not Reportable Lymph # (Auto) Not Reportable [place] # (Auto) Not Reportable Eos # (Auto) Not Reportable Baso # (Auto) Not Reportable Absolute Nucleated RBC Not Reportable Total Counted 100 Band Neuts % (Manual) 1 (0 - 10) % Reactive Lymphs % (Man) 1 % Abnorm Lymph % (Manual) 0 % Nucleated RBC % Not Reportable Neutrophils # (Manual) 6.2 (1.5-6.6) 10^3/uL Lymphocytes # (Manual) 16.6 H (1.5-3.5) 10^3/uL Monocytes # (Manual) 1.2 H (0.0-1.0) 10^3/uL Eosinophils # (Manual) 0.0 (0-0.7) 10^3/uL Basophils # (Manual) 0.0 (0-0.1) 10^3/uL Differential Comment MANUAL DIFFERENTIAL Manual Slide Review Indicated Sodium 141 (135-145) mmol/L Potassium 3.5 (3.5-5.0) mmol/L Chloride 111 (101-111) mmol/L Carbon Dioxide 25 (21-32) mmol/L Anion Gap 5.0 L (6-13) BUN 37 H (6-20) mg/dL Creatinine 1.2 (0.6-1.2) mg/dL Estimated GFR (MDRD) 57 L (>89) Glucose 102 H (70-100) mg/dL Calcium 7.8 L (8.5-10.3) mg/dL Total Bilirubin 2.9 H (0.2-1.0) mg/dL AST 35 (10-42) IU/L ALT 28 (10-60) IU/L Alkaline Phosphatase 70 (42-121) IU/L Total Protein 4.9 L (6.7-8.2) g/dL Albumin 2.8 L (3.2-5.5) g/dL Globulin 2.1 (2.1-4.2) g/dL Albumin/Globulin Ratio 1.3 (1.0-2.2) - Current Medications Current Medications: Current Medications Generic Name Dose Route Start Last Admin Trade Name Freq PRN Reason Stop Dose Admin Acetaminophen 650 mg 01/03/21 16:49 01/07/21 08:39 Acetaminophen 325 Mg Tablet PO 650 mg Q4HR PRN Administration Pain 1 to 4 Aspirin 81 mg 01/04/21 09:00 01/07/21 08:39 Aspirin Chew 81 Mg Tablet PO 81 mg DAILY DANA Administration Atorvastatin Calcium 80 mg 01/04/21 21:00 01/06/21 20:24 Atorvastatin 40 Mg Tablet PO 80 mg QPM DANA Administration Enoxaparin Sodium 40 mg 01/05/21 09:00 01/07/21 08:39 Enoxaparin 40 Mg/0.4 Ml Syringe SUBQ 40 mg DAILY DANA Administration Hydralazine HCl 10 mg 01/03/21 16:59 01/05/21 00:57 Hydralazine Inj 20 Mg/Ml Vial IVP 10 mg Q6H PRN Administration Hypertensive Emergency Piperacillin Sod/Tazobactam 100 mls @ 25 mls/hr 01/03/21 18:00 01/07/21 11:27 Sod 3.375 gm/ Sodium Chloride IV 25 mls/hr Q8H DANA Administration Metoprolol Tartrate 25 mg 01/05/21 21:00 01/07/21 10:05 Metoprolol Tartrate 25 Mg Tablet PO Not Given BID [facility] Morphine Sulfate 2 mg 01/03/21 16:49 01/07/21 11:33 Morphine 2 Mg/Ml Carpuject IVP 2 mg Q2HR PRN Administration Pain 8 to 10 Multivitamins 1 tab 01/05/21 08:00 01/07/21 10:03 Multivitamin Tablet PO 1 tab DAILYWM DANA Administration Ondansetron HCl 4 mg 01/03/21 16:49 01/06/21 23:56 Ondansetron 4 Mg/2 Ml Vial IVP 4 mg Q6HR PRN Administration Nausea / Vomiting Oxycodone HCl 5 mg 01/03/21 16:49 01/07/21 05:59 Oxycodone 5 Mg Tablet PO 5 mg Q4HR PRN Administration Pain 5 to 7 Polyethylene Glycol 17 gm 01/05/21 09:00 01/07/21 08:38 Polyethylene Glycol 3350 17 Gm Packet PO 17 gm DAILY DANA Administration Sodium Chloride 10 ml 01/03/21 16:49 01/07/21 02:27 Sodium Chloride Flush 0.9% 10 Ml Syringe IVP 10 ml PRN PRN Administration NEEDED PER PROVIDER ORDERS Sodium Chloride 10 ml 01/03/21 17:00 01/07/21 08:39 Sodium Chloride Flush 0.9% 10 Ml Syringe IVP 10 ml 0100,0900,1700 [facility] Administration - Physical Exam Wound/Incisions: positive: Healing well, Other (significant bruising primarily limited to the lower abdomen) General Appearance: positive: No acute distress, Alert Eyes Bilateral: positive: PERRL, EOMI Cardiovascular: positive: Regular rate & rhythm Abdomen: positive: Nml bowel sounds, No distention. negative: Guarding, Rebound ABX Reporting Has patient been on IV antibiotics over the past 48 hours?: Yes Impression/Plan - Problem List Problem List: Slow improvement after lap ja with post op hemorrhage 1. Encourage PO intake 2. Provided copies of CBC 3. Leave drain in place and continue to follow labs. Output greatly decreased and clearing and bilirubin is normalizing 4. Other confounding issue per hospitalist service.
[2021-01-07] MEDS ORDERED: diltiaZEM INJ 5 MG/ML VIAL IVP ONE (16:13)
[2021-01-07] MEDS ORDERED: IOVERSOL 320 100 ML VIAL IVP ONE ×2 (19:00→19:47)
[2021-01-07] MEDS: ONDANSETRON 4 MG/2 ML VIAL IVP PRN (20:07)
--- NOTE | 2021-01-07 20:32 | CT Report ---
PROCEDURE: ANGIO CHEST W/WO INDICATIONS: new onset afib CONTRAST: IV CONTRAST: Optiray 320 ml: 100 PO CONTRAST: *NO PO CONTRAST TECHNIQUE: After the administration of intravenous contrast, 2 mm axial images were acquired from the pulmonary apices to the posterior costophrenic angles during the arterial phase. In addition, 1 mm lung kernel and 5 mm soft tissue kernel reconstructions were performed. 3-dimensional coronal oblique maximum int ensity projection (MIP) reformats, 8 mm axial MIP, and 5 mm coronal and sagittal MPR reformats were t hen performed through the thorax. For radiation dose reduction, the following was used: automated exp osure control, adjustment of mA and/or kV according to patient size. COMPARISON: Chest x-ray one view, 01/06/2021. CT abdomen and pelvis with contrast, 01/03/2021. Ultras ound abdomen, limited, 01/03/2021. FINDINGS: Image quality: Excellent. Pulmonary arteries: Pulmonary arteries are normal in size, and demonstrate no intraluminal filling d efects to suggest central pulmonary embolism. Lungs and pleura: Small pleural effusions are present. Bibasilar consolidation or atelectasis. Moder ate emphysema. There are multiple tiny calcified nodules bilaterally, which may be secondary to alveo lar microlithiasis, chronic aspiration or infection. No pneumothorax. Central and peripheral airways are patent. Mediastinum: Heart size is normal, without pericardial effusion. No mediastinal or hilar adenopathy . Thoracic aorta is normal in caliber and enhancement. Esophagus is normal in caliber, without hiat al hernia. Bones and chest wall: No suspicious bony lesions. Ribs and thoracic spine appear intact throughout. No axillary or supraclavicular adenopathy. The thyroid is normal in size and there are no incident al findings. Abdomen: There are postsurgical changes related to recent cholecystectomy. Free peritoneal air and ai r within the anterior chest wall are likely related to recent surgery. There is a surgical drain in the gallbladder fossa, possibly visualized. A small complex fluid collection in the gallbladder fossa may be a small hematoma or developing abscess. A hepatic cyst is noted in the left hepatic lobe. The re is adrenal thickening. IMPRESSION: 1. No evidence for pulmonary embolism. 2. Small bilateral pleural effusions and bibasilar consolidation or atelectasis. 3. Moderate emphysema. 4. Multiple tiny calcified nodules bilaterally. Differential diagnoses are alveolar microlithiasis, c hronic aspiration or infection. 5. Cholecystectomy. There is a small complex fluid correction in the gallbladder fossa, which may be a small hematoma or developing abscess. The result was discussed with Dr. Frederick. CLINICAL RECOMMENDATION STATEMENTS: In patients <35 years with an ITN detected on CT, MRI, or extrathyroidal ultrasound, the Committee re commends further evaluation with dedicated thyroid ultrasound if the nodule is "e1 cm and has no susp icious imaging features, and if the patient has normal life expectancy. In patients "e35 years with an ITN detected on CT, MRI, or extrathyroidal ultrasound, the Committee r ecommends further evaluation with dedicated thyroid ultrasound if the nodule is "e1.5 cm and has no s uspicious imaging features, and if the patient has normal life expectancy. (ACR, 2014) Reviewed by: Jessica Borrero MD on 01/07/2021 8:30 PM PDT Approved by: Jessica Borrero MD on 01/07/2021 8:30 PM PDT Station ID: [id number]
[2021-01-07] MEDS: ATORVASTATIN 40 MG TABLET PO SCH (21:48)
[2021-01-08] MEDS: SODIUM CHLORIDE FLUSH 0.9% 10 ML SYRINGE IVP SCH ×3 (00:27→18:04)
[2021-01-08] MEDS: PIPERACILLIN/TAZOBACTAM 3.375 GM in SODIUM CHLORIDE 0.9% MINIBAG 100 ML IV SCH ×3 (02:33→18:03)
[2021-01-08 06:03] LABS: BASOPHILS % (AUTO) 0.2 %; EOSINOPHILS % (AUTO) 0.6 %; HCT - HEMATOCRIT 26.4 % (42.0-52.0); HGB - HEMOGLOBIN 8.2 g/dL (14.0-18.0); LYMPHOCYTES % (AUTO) 71.4 %; MEAN CORPUSCULAR HEMOGLOBIN 30.8 pg (27.0-31.0); MEAN CORPUSCULAR HGB CONC 31.1 g/dL (32.0-36.0); MEAN CORPUSCULAR VOLUME 99.2 fL (80.0-94.0); MEAN PLATELET VOLUME 9.4 fL (7.4-11.4); MONOCYTES % (AUTO) 3.3 %; NEUTROPHILS % (AUTO) 23.9 %; PLT - PLATELET COUNT 117 10^3/uL (130-450); RED BLOOD COUNT 2.66 10^6/uL (4.70-6.10); RED CELL DISTRIBUTION WIDTH 15.6 % (12.0-15.0); WHITE BLOOD COUNT 20.5 x10^3/uL (4.8-10.8)
[2021-01-08 06:04] LABS: ABNORMAL LYMPHS % (MANUAL) 0 %; BAND NEUTROPHILS % (MANUAL) 0 %
[2021-01-08 06:21] LABS: ALBUMIN 2.7 g/dL (3.2-5.5); ALBUMIN/GLOBULIN RATIO 1.4 (1.0-2.2); BILIRUBIN,TOTAL 2.1 mg/dL (0.2-1.0); CREATININE 1.2 mg/dL (0.6-1.2); DIFFERENTIAL COMMENT MANUAL DIFFERENTIAL; LYMPHOCYTES # (MANUAL) 13.9 10^3/uL (1.5-3.5); LYMPHOCYTES % (MANUAL) 68 %; MONOCYTES # (MANUAL) 0.2 10^3/uL (0.0-1.0); NEUTROPHILS # (MANUAL) 6.4 10^3/uL (1.5-6.6); PLATELET ESTIMATE, MANUAL DECREASED (<130,000) (NORMAL); PLATELET MORPHOLOGY NORMAL APPEARANCE (NORMAL); POTASSIUM 3.5 mmol/L (3.5-5.0); RBC MORPHOLOGY (MULTIPLE) NORMAL APPEARANCE (NORMAL); TOTAL PROTEIN 4.7 g/dL (6.7-8.2); WBC MORPHOLOGY (MULTIPLE) NORMAL APPEARANCE (NORMAL)
[2021-01-08] MEDS: ENOXAPARIN 40 MG/0.4 ML SYRINGE SUBQ SCH (10:15)
[2021-01-08] MEDS: ACETAMINOPHEN 325 MG TABLET PO PRN ×3 (10:15→20:32)
[2021-01-08] MEDS: METOPROLOL TARTRATE 25 MG TABLET PO SCH ×2 (10:16→20:32)
[2021-01-08] MEDS: DOCUSATE SODIUM 250 MG CAPSULE PO SCH (10:16)
[2021-01-08] MEDS: SENNA 8.6 MG TABLET PO SCH (10:18)
[2021-01-08] MEDS: ASPIRIN CHEW 81 MG TABLET PO SCH (10:18)
[2021-01-08] MEDS: polyethylene glycoL 3350 17 GM PACKET PO SCH (10:21)
[2021-01-08] MEDS: MULTIVITAMIN TABLET PO SCH (10:36)
--- NOTE | 2021-01-08 10:39 | PROVIDER PROGRESS NOTE ---
Subjective - Prog Note Date Prog Note Date: 01/08/21 Prog Note Time: 10:32 - Subjective Pt reports feeling: No change Subjective: Addi is looking alert and significantly better today. He is still feeling fatigued and weak and has a minimal appetite. Today, he reports an odd feeling while swallowing, particularly with liquids. He describes a gurgling sensation when he swallows. Due to his decreased appetite, he was given Ensure to supplement his nutrition. He reported some pain with swallowing at that time. The speech pathologist will come consult with him today regarding this. His last BM was 01/02 and he is passing gas. While in the OR he had a liter of fluid left in his abd cavity due to the blood loss he suffered. He oozed quite a bit and surgicel put on liver. Drain was plugged yesterday and unplugged by surgeon. >1 liter of blood fluid came out 01/07 and a little more drainage yesterday. Clearing up. He is still having mild suprapubic pain around the umbilicus but denies fever or chills. Yesterday afternoon, Addi had a sudden onset of new atrial fibrillation with a rate in the 120s. He had no symptoms of chest pain, hypoxia, or SOB. He is on Lovenox. His troponin I on 01/05 was 46.0, on 01/07 40.6, and this morning is 73.3. He is back in sinus rhythm. His CTA yesterday showed no evidence of PE. It did display small bilateral pleural effusion, moderate emphysema, multiple, tiny, calcified nodules bilaterally (ddx are alveolar microlithiasis, chronic aspiration, or infection), and small fluid collection in gallbladder fossa which could be a hematoma or an abscess. Addi's WBCs are trending down; on 51.5 on 01/05 and 20.5 today. Addi is ambulating well and PT is going to try the stairs with him today in preparation for when he returns to his home which has stairs. At home he walks slowly throughout the house with the use of a can or front walker. He has peripheral neuropathy and balance issues that limit his stamina. His is concerned that she is not equipped to care for him at home. Current Medications - Current Medications Current Medications: Active Medications Acetaminophen (Acetaminophen 325 Mg Tablet) 650 mg PO Q4HR PRN PRN Reason: Pain 1 to 4 Last Admin: 01/08/21 10:15 Dose: 650 mg Documented by: Albuterol (Albuterol Neb 2.5 Mg/3 Ml) 2.5 mg INH RTQ4H PRN PRN Reason: Wheezing Albuterol/Ipratropium (Ipratropium/Albuterol 3 Ml Neb) 3 ml INH RTQID PRN PRN Reason: Shortness of Air/Wheezing Aspirin (Aspirin Chew 81 Mg Tablet) 81 mg PO DAILY [facility] Last Admin: 01/08/21 10:18 Dose: 81 mg Documented by: Atorvastatin Calcium (Atorvastatin 40 Mg Tablet) 80 mg PO QPM [facility] Last Admin: 01/07/21 21:48 Dose: 80 mg Documented by: Docusate Sodium (Docusate Sodium 250 Mg Capsule) 250 - 500 mg PO DAILY [facility] Last Admin: 01/08/21 10:16 Dose: 250 mg Documented by: Enoxaparin Sodium (Enoxaparin 40 Mg/0.4 Ml Syringe) 40 mg SUBQ DAILY [facility] Last Admin: 01/08/21 10:15 Dose: 40 mg Documented by: Hydralazine HCl (Hydralazine Inj 20 Mg/Ml Vial) 10 mg IVP Q6H PRN PRN Reason: Hypertensive Emergency Last Admin: 01/05/21 00:57 Dose: 10 mg Documented by: Piperacillin Sod/Tazobactam (Sod 3.375 gm/ Sodium Chloride) 100 mls @ 25 mls/hr IV Q8H [facility] Last Admin: 01/08/21 10:22 Dose: 25 mls/hr Documented by: Metoprolol Tartrate (Metoprolol Tartrate 25 Mg Tablet) 25 mg PO BID [facility] Last Admin: 01/08/21 10:16 Dose: 25 mg Documented by: Morphine Sulfate (Morphine 2 Mg/Ml Carpuject) 2 mg IVP Q2HR PRN PRN Reason: Pain 8 to 10 Last Admin: 01/07/21 11:33 Dose: 2 mg Documented by: Multivitamins (Multivitamin Tablet) 1 tab PO DAILYWM [facility] Last Admin: 01/08/21 10:36 Dose: 1 tab Documented by: Nitroglycerin (Nitroglycerin Sl 0.4 Mg Tablet) 0.4 mg SL Q5MIN PRN PRN Reason: Chest Pain Ondansetron HCl (Ondansetron 4 Mg/2 Ml Vial) 4 mg IVP Q6HR PRN PRN Reason: Nausea / Vomiting Last Admin: 01/07/21 20:07 Dose: 4 mg Documented by: Oxycodone HCl (Oxycodone 5 Mg Tablet) 5 mg PO Q4HR PRN PRN Reason: Pain 5 to 7 Last Admin: 01/07/21 18:16 Dose: 5 mg Documented by: Polyethylene Glycol (Polyethylene Glycol 3350 17 Gm Packet) 17 gm PO DAILY [facility] Last Admin: 01/08/21 10:21 Dose: 17 gm Documented by: Senna (Senna 8.6 Mg Tablet) 8.6 - 17.2 mg PO DAILY [facility] Last Admin: 01/08/21 10:18 Dose: 8.6 mg Documented by: Sodium Chloride (Sodium Chloride Flush 0.9% 10 Ml Syringe) 10 ml IVP PRN PRN PRN Reason: NEEDED PER PROVIDER ORDERS Last Admin: 01/07/21 19:52 Dose: 10 ml Documented by: Sodium Chloride (Sodium Chloride Flush 0.9% 10 Ml Syringe) 10 ml IVP 0100,0900,1700 [facility] Last Admin: 01/08/21 10:21 Dose: 10 ml Documented by: Aspirin 81 mg PO DAILY 04/29/18 B Complex W-C No.20/Folic Acid [Mynephron Capsule] 1 cap PO DAILY 04/29/18 Calcium Carbonate [Calcium] 600 mg PO DAILY 04/29/18 Metoprolol Tartrate 25 mg PO DAILY 04/29/18 Atorvastatin Calcium [Lipitor] 80 mg PO QPM 01/04/21 Multivitamin 1 tab PO DAILY 01/04/21 Objective - Vital Signs/Intake & Output Reviewed Vital Signs: Yes Vital Signs: Vital Signs x48h Temp Pulse Resp BP BP Pulse Ox 01/08/21 10:16 133/44 H 01/08/21 08:21 36.8 C 52 L 17 126/69 94 01/08/21 05:00 36.6 C 55 L 18 134/50 H 95 01/08/21 04:19 36.3 C L 55 L 18 136/47 H 96 Intake & Output: Intake & Output 01/05/21 01/06/21 01/07/21 01/08/21 23:59 23:59 23:59 23:59 Intake Total 3099.721 2650 785.000 475 Output Total 850 1165 2765 900 Balance 2249.721 1485 -1980.000 -425 - Objective General Appearance: positive: Alert, Other (Much more alert today; does not seem as disoriented or confused) Eyes Bilateral: positive: PERRL, EOMI ENT: positive: No signs of dehydration, Other (No oral thrush) Neck: negative: No JVD, Stiff neck Respiratory: positive: Rales (Occasional. At the bases. When he gives a week cough for me they disappear. But then they return), Other (He knows he has to do incentive spirometry and he shows me the canister to make sure I approve of it respiratory therapy is asking him to do). negative: Wheezes, Rhonchi Abdomen: positive: Tenderness (Suprapubic, umbilicus), Abnml bowel sounds (Hypoactive bowel sounds), Other (Periumbilical bruise but no redness or heat or drainage. suprapubic area still aches but less stinging). negative: Guarding, Rebound Skin: positive: Warm, Dry Neurologic/Psychiatric: positive: Oriented x3, CN's nml (2-12), Disoriented to place, Other (he needs a walker and I watched him walk w PT. Deaf and needs prompting. But follows prompts. Mood is better today) - Lab Results Fish Bones: 01/08/21 05:53 01/08/21 05:53 Other Labs: Lab Results x24hrs 01/08/21 01/08/21 01/08/21 Range/Units 05:53 05:53 05:53 WBC 20.5 H (4.8-10.8) x10^3/uL RBC 2.66 L (4.70-6.10) 10^6/uL Hgb 8.2 L (14.0-18.0) g/dL Hct 26.4 L (42.0-52.0) % MCV 99.2 H (80.0-94.0) fL MCH 30.8 (27.0-31.0) pg MCHC 31.1 L (32.0-36.0) g/dL RDW 15.6 H (12.0-15.0) % Plt Count 117 L (130-450) 10^3/uL MPV 9.4 (7.4-11.4) fL Neut # (Auto) Not Reportable Lymph # (Auto) Not Reportable [place] # (Auto) Not Reportable Eos # (Auto) Not Reportable Baso # (Auto) Not Reportable Absolute Nucleated RBC Not Reportable Total Counted 100 Band Neuts % (Manual) 0 (0 - 10) % Abnorm Lymph % (Manual) 0 % Nucleated RBC % Not Reportable Neutrophils # (Manual) 6.4 (1.5-6.6) 10^3/uL Lymphocytes # (Manual) 13.9 H (1.5-3.5) 10^3/uL Monocytes # (Manual) 0.2 (0.0-1.0) 10^3/uL Eosinophils # (Manual) 0.0 (0-0.7) 10^3/uL Basophils # (Manual) 0.0 (0-0.1) 10^3/uL Differential Comment MANUAL DIFFERENTIAL WBC Morphology NORMAL APPEARANCE (NORMAL) Platelet Estimate DECREASED (<130,000) (NORMAL) Platelet Morphology NORMAL APPEARANCE (NORMAL) RBC Morph Micro Appear NORMAL APPEARANCE (NORMAL) Sodium 141 (135-145) mmol/L Potassium 3.5 (3.5-5.0) mmol/L Chloride 110 (101-111) mmol/L Carbon Dioxide 25 (21-32) mmol/L Anion Gap 6.0 (6-13) BUN 35 H (6-20) mg/dL Creatinine 1.2 (0.6-1.2) mg/dL Estimated GFR (MDRD) 57 L (>89) Glucose 106 H (70-100) mg/dL Calcium 8.0 L (8.5-10.3) mg/dL Total Bilirubin 2.1 H (0.2-1.0) mg/dL AST 29 (10-42) IU/L ALT 23 (10-60) IU/L Alkaline Phosphatase 71 (42-121) IU/L Troponin I High Sens 73.3 H* (2.3-19.7) ng/L Total Protein 4.7 L (6.7-8.2) g/dL Albumin 2.7 L (3.2-5.5) g/dL Globulin 2.0 L (2.1-4.2) g/dL Albumin/Globulin Ratio 1.4 (1.0-2.2) 01/07/21 Range/Units 18:50 WBC (4.8-10.8) x10^3/uL RBC (4.70-6.10) 10^6/uL Hgb (14.0-18.0) g/dL Hct (42.0-52.0) % MCV (80.0-94.0) fL MCH (27.0-31.0) pg MCHC (32.0-36.0) g/dL RDW (12.0-15.0) % Plt Count (130-450) 10^3/uL MPV (7.4-11.4) fL Neut # (Auto) Lymph # (Auto) [place] # (Auto) Eos # (Auto) Baso # (Auto) Absolute Nucleated RBC Total Counted Band Neuts % (Manual) (0 - 10) % Abnorm Lymph % (Manual) % Nucleated RBC % Neutrophils # (Manual) (1.5-6.6) 10^3/uL Lymphocytes # (Manual) (1.5-3.5) 10^3/uL Monocytes # (Manual) (0.0-1.0) 10^3/uL Eosinophils # (Manual) (0-0.7) 10^3/uL Basophils # (Manual) (0-0.1) 10^3/uL Differential Comment WBC Morphology (NORMAL) Platelet Estimate (NORMAL) Platelet Morphology (NORMAL) RBC Morph Micro Appear (NORMAL) Sodium (135-145) mmol/L Potassium (3.5-5.0) mmol/L Chloride (101-111) mmol/L Carbon Dioxide (21-32) mmol/L Anion Gap (6-13) BUN (6-20) mg/dL Creatinine (0.6-1.2) mg/dL Estimated GFR (MDRD) (>89) Glucose (70-100) mg/dL Calcium (8.5-10.3) mg/dL Total Bilirubin (0.2-1.0) mg/dL AST (10-42) IU/L ALT (10-60) IU/L Alkaline Phosphatase (42-121) IU/L Troponin I High Sens 40.6 H* (2.3-19.7) ng/L Total Protein (6.7-8.2) g/dL Albumin (3.2-5.5) g/dL Globulin (2.1-4.2) g/dL Albumin/Globulin Ratio (1.0-2.2) ABX Reporting Has patient been on IV antibiotics over the past 48 hours?: Yes Sepsis Event Note (H) - Evaluation Current Stage of Sepsis: Resolved Possible source of Sepsis: positive: GI tract/intra-abdominal - Sepsis Criteria Sepsis Criteria: Recorded Temperature greater than 38.3C or Less than 36C, WBC count greater than 12,000 or less than 4000 Assessment/Plan - Problem List (1) Acute cholecystitis Impression: He presented his right upper quadrant pain that radiated to the shoulders, and CT confirmed acute cholecystitis. Elevated white cell count. No fever. He was started on single agent Zosyn. Went to the operating room on the day of ad mission. He is postoperative day #5 today. He had a low-grade fever and elevated white cell count has been quite high. WBC is finally dropping once the drain put out > 1 liter. Continues to be slow to move. Does not want to get out of bed. Not eating very much, a few bites to 25% of food. IV fluids have been started and stopped. His BUN is creeping up a bit at 34, 37, and 35 today. Cognitive deficit is a problem for him. is concerned she cannot take care of him unless he is completely independent again. Surgeon reports he was very dirty when they put him on the OR and needed extensive wipe down to do the case. Plan: General surgery continues to see the patient. Postoperative day #4 Day #5 of Zosyn Continue incentive spirometry On clear liquid diet that will be advanced to regular today by surgery Slow to move: working with PT/OT with idea that he may need rehab according to his previous baseline (2)leukocytosis Patient's WBC is elevated to 51.5 then down to 43.4, 24, and 20.5 today. pt has hx of CLL. pt report he saw his oncologist Dr. Umer Eisenberg on November 11. 01/[address] Umer Eisenberg, updated pt's medical conditions. Dr. Umer Eisenberg believe this elevated WBC is reaction to infection and surgical stress, suggest to continue lab monitor. That hospitalists also consulted with our [facility] [place] 01/05 oncologist, he suggest possible reaction and suggest to do peripheral smear study to see if pt has Smudge cells. We have ordered peripheral smear study and we continue to await a report, continue to monitor WBC, continue antibiotics at this point. (3) HTN (hypertension) Conclusion/Plan: we will hold his Metoprolol, since his HR is at low arrange, Add hydralazine as needed. (4) Acute blood loss anemia had quite a bit of oozing during the case and his platelets are low. Continue to monitor and transfuse if below 7 (5) Atrial fibrillation, new onset New onset of atrial fibrillation yesterday afternoon. Given single dose of diltiazem and is now in sinus rhythm. His troponin I was 40.6 yesterday and 73.3 today. We will continue to monitor this and hope to see a downward trend. Currently on Lovenox. CTA yesterday showed no evidence of PE. It did display small bilateral pleural effusion, moderate emphysema, multiple, tiny, calcified nodules bilaterally (ddx are alveolar microlithiasis, chronic aspiration, or infection), and small fluid collection in gallbladder fossa which could be a hematoma or an abscess. Resolved, stable problems: (6)sepsis resolved. Patient presented as low degree of fever, significant had elevated WBC, Cholecystitis with gross purulence. We will continue antibiotics Zosyn, IV fluids, continue laboratory and vital signs monitor closely (7) Hx of bladder cancer Conclusion/Plan: Patient has a history of bladder cancer, he reported he had appointment next week Friday To see his oncologist. Advised patient continue follow-up. Now patient can urinate and stable. will order UA (8) Hx of chronic lymphocytic leukemia Conclusion/Plan: 01/05, As above, I called patient's oncologist and discussed the care plan. Per patient's oncologist suggestion, we will do laboratory technologist. oncologist believe this is a reaction to the infection and surgical stress Stable, patient may continue follow-up his oncologist. He is elevated WBC which is likely reactive from his infection, acute cholecystitis. (9) Hx of coronary artery disease Conclusion/Plan: Patient's upper abdominal pain, and bilateral shoulder pain are likely caused by his acute Cholecystitis. EKG and troponin are negative for NC. pt had recently ECHO study show reserved EF and stress test was stable. resume home aspirin, continue tele monitor and vital monitor. (10) COPD (chronic obstructive pulmonary disease) Conclusion/Plan: pt report he took inhaler PRN at home, no home oxygen needed. pt has 100% O2 sats on room air. pt is stable, no acute respiratory distress.
--- NOTE | 2021-01-08 17:16 | PROVIDER PROGRESS NOTE ---
Subjective - General Admit Date: 01/03/21 Procedure Date: 01/03/21 Post Op Days: 5 Procedure Performed: Laparoscopic cholecystectomy - Review of Systems Wound/Incisions: positive: Healing well, Other (significant bruising primarily limited to the lower abdomen) Drain Type: Steven Drain Output Description: Bloody but clearing Gastrointestinal: positive: Abdominal pain, Flatus. negative: Nausea, Vomiting All Other Systems: positive: Reviewed and negative - Other Other Information/Narrative: Awake and alert and little cranky today. He does not like Ensure. He says he wants regular milk. He reports that his throat feels a little bit sore. He wants to be sure he does not "mess this thing up" by eating.Has no recollection of the discussion we had yesterday regarding his hemograms.Denies any abdominal pain currently. Objective - Patient Data Reviewed Vital Signs: Yes Vital Signs: Vital Signs x48h Temp Pulse Resp BP BP Pulse Ox 01/08/21 14:00 36.4 C L 56 L 17 128/50 L 97 01/08/21 10:16 133/44 H Intake & Output: Intake and Output Totals x24h 01/06/21 01/07/21 01/08/21 23:59 23:59 23:59 Intake Total 2650 785.000 775 Output Total 1165 2765 1070 Balance 1485 -1980.000 -295 - Lab Results Lab Results: 01/08/21 05:53 01/08/21 05:53 Other Lab Results: Lab Results x24hrs 01/08/21 01/08/21 01/08/21 Range/Units 13:45 05:53 05:53 WBC (4.8-10.8) x10^3/uL RBC (4.70-6.10) 10^6/uL Hgb (14.0-18.0) g/dL Hct (42.0-52.0) % MCV (80.0-94.0) fL MCH (27.0-31.0) pg MCHC (32.0-36.0) g/dL RDW (12.0-15.0) % Plt Count (130-450) 10^3/uL MPV (7.4-11.4) fL Neut # (Auto) Lymph # (Auto) [place] # (Auto) Eos # (Auto) Baso # (Auto) Absolute Nucleated RBC Total Counted Band Neuts % (Manual) (0 - 10) % Abnorm Lymph % (Manual) % Nucleated RBC % Neutrophils # (Manual) (1.5-6.6) 10^3/uL Lymphocytes # (Manual) (1.5-3.5) 10^3/uL Monocytes # (Manual) (0.0-1.0) 10^3/uL Eosinophils # (Manual) (0-0.7) 10^3/uL Basophils # (Manual) (0-0.1) 10^3/uL Differential Comment WBC Morphology (NORMAL) Platelet Estimate (NORMAL) Platelet Morphology (NORMAL) RBC Morph Micro Appear (NORMAL) Sodium 141 (135-145) mmol/L Potassium 3.5 (3.5-5.0) mmol/L Chloride 110 (101-111) mmol/L Carbon Dioxide 25 (21-32) mmol/L Anion Gap 6.0 (6-13) BUN 35 H (6-20) mg/dL Creatinine 1.2 (0.6-1.2) mg/dL Estimated GFR (MDRD) 57 L (>89) Glucose 106 H (70-100) mg/dL Calcium 8.0 L (8.5-10.3) mg/dL Total Bilirubin 2.1 H (0.2-1.0) mg/dL AST 29 (10-42) IU/L ALT 23 (10-60) IU/L Alkaline Phosphatase 71 (42-121) IU/L Troponin I High Sens 49.3 H* 73.3 H* (2.3-19.7) ng/L Total Protein 4.7 L (6.7-8.2) g/dL Albumin 2.7 L (3.2-5.5) g/dL Globulin 2.0 L (2.1-4.2) g/dL Albumin/Globulin Ratio 1.4 (1.0-2.2) 01/08/21 01/07/21 Range/Units 05:53 18:50 WBC 20.5 H (4.8-10.8) x10^3/uL RBC 2.66 L (4.70-6.10) 10^6/uL Hgb 8.2 L (14.0-18.0) g/dL Hct 26.4 L (42.0-52.0) % MCV 99.2 H (80.0-94.0) fL MCH 30.8 (27.0-31.0) pg MCHC 31.1 L (32.0-36.0) g/dL RDW 15.6 H (12.0-15.0) % Plt Count 117 L (130-450) 10^3/uL MPV 9.4 (7.4-11.4) fL Neut # (Auto) Not Reportable Lymph # (Auto) Not Reportable [place] # (Auto) Not Reportable Eos # (Auto) Not Reportable Baso # (Auto) Not Reportable Absolute Nucleated RBC Not Reportable Total Counted 100 Band Neuts % (Manual) 0 (0 - 10) % Abnorm Lymph % (Manual) 0 % Nucleated RBC % Not Reportable Neutrophils # (Manual) 6.4 (1.5-6.6) 10^3/uL Lymphocytes # (Manual) 13.9 H (1.5-3.5) 10^3/uL Monocytes # (Manual) 0.2 (0.0-1.0) 10^3/uL Eosinophils # (Manual) 0.0 (0-0.7) 10^3/uL Basophils # (Manual) 0.0 (0-0.1) 10^3/uL Differential Comment MANUAL DIFFERENTIAL WBC Morphology NORMAL APPEARANCE (NORMAL) Platelet Estimate DECREASED (<130,000) (NORMAL) Platelet Morphology NORMAL APPEARANCE (NORMAL) RBC Morph Micro Appear NORMAL APPEARANCE (NORMAL) Sodium (135-145) mmol/L Potassium (3.5-5.0) mmol/L Chloride (101-111) mmol/L Carbon Dioxide (21-32) mmol/L Anion Gap (6-13) BUN (6-20) mg/dL Creatinine (0.6-1.2) mg/dL Estimated GFR (MDRD) (>89) Glucose (70-100) mg/dL Calcium (8.5-10.3) mg/dL Total Bilirubin (0.2-1.0) mg/dL AST (10-42) IU/L ALT (10-60) IU/L Alkaline Phosphatase (42-121) IU/L Troponin I High Sens 40.6 H* (2.3-19.7) ng/L Total Protein (6.7-8.2) g/dL Albumin (3.2-5.5) g/dL Globulin (2.1-4.2) g/dL Albumin/Globulin Ratio (1.0-2.2) - Current Medications Current Medications: Current Medications Generic Name Dose Route Start Last Admin Trade Name Freq PRN Reason Stop Dose Admin Acetaminophen 650 mg 01/03/21 16:49 01/08/21 14:43 Acetaminophen 325 Mg Tablet PO 650 mg Q4HR PRN Administration Pain 1 to 4 Aspirin 81 mg 01/04/21 09:00 01/08/21 10:18 Aspirin Chew 81 Mg Tablet PO 81 mg DAILY DANA Administration Atorvastatin Calcium 80 mg 01/04/21 21:00 01/07/21 21:48 Atorvastatin 40 Mg Tablet PO 80 mg QPM DANA Administration Docusate Sodium 250 - 500 mg 01/08/21 09:00 01/08/21 10:16 Docusate Sodium 250 Mg Capsule PO 250 mg DAILY DANA Administration Enoxaparin Sodium 40 mg 01/05/21 09:00 01/08/21 10:15 Enoxaparin 40 Mg/0.4 Ml Syringe SUBQ 40 mg DAILY DANA Administration Hydralazine HCl 10 mg 01/03/21 16:59 01/05/21 00:57 Hydralazine Inj 20 Mg/Ml Vial IVP 10 mg Q6H PRN Administration Hypertensive Emergency Piperacillin Sod/Tazobactam 100 mls @ 25 mls/hr 01/03/21 18:00 01/08/21 10:22 Sod 3.375 gm/ Sodium Chloride IV 25 mls/hr Q8H DANA Administration Metoprolol Tartrate 25 mg 01/05/21 21:00 01/08/21 10:16 Metoprolol Tartrate 25 Mg Tablet PO 25 mg BID DANA Administration Morphine Sulfate 2 mg 01/03/21 16:49 01/07/21 11:33 Morphine 2 Mg/Ml Carpuject IVP 2 mg Q2HR PRN Administration Pain 8 to 10 Multivitamins 1 tab 01/05/21 08:00 01/08/21 10:36 Multivitamin Tablet PO 1 tab DAILYWM DANA Administration Ondansetron HCl 4 mg 01/03/21 16:49 01/07/21 20:07 Ondansetron 4 Mg/2 Ml Vial IVP 4 mg Q6HR PRN Administration Nausea / Vomiting Oxycodone HCl 5 mg 1013/21 16:49 01/07/21 18:16 Oxycodone 5 Mg Tablet PO 5 mg Q4HR PRN Administration Pain 5 to 7 Polyethylene Glycol 17 gm 01/05/21 09:00 01/08/21 10: Polyethylene Glycol 3350 17 Gm Packet PO 17 gm DAILY DANA Administration Senna 8.6 - 17.2 mg 01/08/21 09:00 01/08/21 10:18 Senna 8.6 Mg Tablet PO 8.6 mg DAILY DANA Administration Sodium Chloride 10 ml 01/03/21 16:49 01/07/21 19:52 Sodium Chloride Flush 0.9% 10 Ml Syringe IVP 10 ml PRN PRN Administration NEEDED PER PROVIDER ORDERS Sodium Chloride 10 ml 01/03/21 17:00 01/08/21 10: Sodium Chloride Flush 0.9% 10 Ml Syringe IVP 10 ml 0100,0900,1700 DANA Administration ABX Reporting Has patient been on IV antibiotics over the past 48 hours?: Yes Impression/Plan - Problem List Problem List: Status post cholecystectomy for gangrenous cholecystitis. Postop hemorrhage among other things. His drain is definitely clearing now. Output has decreased in its more serous now than sanguinous. We will plan to remove it tomorrow.Recheck labs in the a.m. Diet as tolerated per nutritional support service.Dr. Marie has ordered a swallowing evaluation.
[2021-01-08] MEDS: ATORVASTATIN 40 MG TABLET PO SCH (20:32)
[2021-01-09] MEDS: ACETAMINOPHEN 325 MG TABLET PO PRN ×4 (00:30→21:29)
[2021-01-09] MEDS: BENZOCAINE/MENTHOL LOZENGE MM PRN ×2 (01:16→05:17)
[2021-01-09] MEDS: PIPERACILLIN/TAZOBACTAM 3.375 GM in SODIUM CHLORIDE 0.9% MINIBAG 100 ML IV SCH ×3 (01:24→18:38)
[2021-01-09] MEDS: SODIUM CHLORIDE FLUSH 0.9% 10 ML SYRINGE IVP SCH ×3 (01:25→17:24)
[2021-01-09 06:06] LABS: BASOPHILS % (AUTO) 0.3 %; EOSINOPHILS % (AUTO) 1.1 %; HCT - HEMATOCRIT 27.7 % (42.0-52.0); HGB - HEMOGLOBIN 8.7 g/dL (14.0-18.0); LYMPHOCYTES % (AUTO) 70.7 %; MEAN CORPUSCULAR HEMOGLOBIN 31.6 pg (27.0-31.0); MEAN CORPUSCULAR HGB CONC 31.4 g/dL (32.0-36.0); MEAN CORPUSCULAR VOLUME 100.7 fL (80.0-94.0); MEAN PLATELET VOLUME 9.4 fL (7.4-11.4); MONOCYTES % (AUTO) 3.1 %; NEUTROPHILS % (AUTO) 23.8 %; PLT - PLATELET COUNT 131 10^3/uL (130-450); RED BLOOD COUNT 2.75 10^6/uL (4.70-6.10); RED CELL DISTRIBUTION WIDTH 15.2 % (12.0-15.0); WHITE BLOOD COUNT 18.2 x10^3/uL (4.8-10.8)
[2021-01-09 06:10] LABS: BAND NEUTROPHILS % (MANUAL) 0 %
[2021-01-09 06:17] LABS: ALBUMIN 2.9 g/dL (3.2-5.5); ALBUMIN/GLOBULIN RATIO 1.3 (1.0-2.2); BILIRUBIN,TOTAL 1.8 mg/dL (0.2-1.0); CALCIUM 8.2 mg/dL (8.5-10.3); CREATININE 1.2 mg/dL (0.6-1.2); POTASSIUM 3.5 mmol/L (3.5-5.0); TOTAL PROTEIN 5.1 g/dL (6.7-8.2)
[2021-01-09 07:28] LABS: ABNORMAL LYMPHS % (MANUAL) 3 %; LYMPHOCYTES # (MANUAL) 3.3 10^3/uL (1.5-3.5); LYMPHOCYTES % (MANUAL) 15 %; NEUTROPHILS # (MANUAL) 12.9 10^3/uL (1.5-6.6); PLATELET ESTIMATE, MANUAL NORMAL (130-450,000) (NORMAL); PLATELET MORPHOLOGY NORMAL APPEARANCE (NORMAL); RBC MORPHOLOGY (MULTIPLE) NORMAL APPEARANCE (NORMAL); WBC MORPHOLOGY (MULTIPLE) NORMAL APPEARANCE (NORMAL)
[2021-01-09 07:29] LABS: DIFFERENTIAL COMMENT MANUAL DIFFERENTIAL
[2021-01-09] MEDS ORDERED: GI COCKTAIL 120 ML BOTTLE PO PRN (08:38)
[2021-01-09] MEDS ORDERED: GI COCKTAIL 120 ML BOTTLE PO ONE (08:38)
[2021-01-09] MEDS ORDERED: LACTATED RINGERS 1,000 ML IV SCH (09:00)
[2021-01-09] MEDS: MULTIVITAMIN TABLET PO SCH (10:18)
[2021-01-09] MEDS: SENNA 8.6 MG TABLET PO SCH (10:20)
[2021-01-09] MEDS: ASPIRIN CHEW 81 MG TABLET PO SCH (10:21)
[2021-01-09] MEDS: ENOXAPARIN 40 MG/0.4 ML SYRINGE SUBQ SCH (10:25)
[2021-01-09] MEDS: METOPROLOL TARTRATE 25 MG TABLET PO SCH ×2 (10:26→21:29)
[2021-01-09] MEDS: polyethylene glycoL 3350 17 GM PACKET PO SCH (10:27)
[2021-01-09] MEDS: PANTOPRAZOLE 40 MG TABLET PO SCH (10:37)
[2021-01-09] MEDS: DOCUSATE SODIUM 250 MG CAPSULE PO SCH (10:37)
--- NOTE | 2021-01-09 14:13 | PROVIDER PROGRESS NOTE ---
Assessment/Plan - Problem List (1) Acute cholecystitis Assessment/Plan: Patient reported he feel better, His abdominal pain is significantly improved. Patient ate most of his breakfast, also patient had large bowel movement, Patient will walk at hallway with nurse assisting. WBC is treading down to 18. t otal Bili is treading down. We will continue follow-up surgeon recommendations, continue antibiotics Zosyn, add probiotics, Continue to work with PT and OT, And advance patient diet per surgeon (2)leukocytosis Patient's WBC is elevated to 51.5 then down to 43.4, 24, and 20.5, today is 18, continue trending down. pt has hx of CLL. pt report he saw his oncologist Dr. Umer Eisenberg on November 11. I called Dr. Umer Eisenberg, updated pt's medical conditions. Dr. Umer Eisenberg believe this elevated WBC is reaction to infection and surgical stress, suggest to continue lab monitor. I also consulted with our [facility] 01/05 oncologist, he suggest possible reaction and suggest to do peripheral smear study to see if pt has Smudge cells. We have ordered peripheral smear study. CBC study did not show Smudge cells today. continue to monitor WBC, continue antibiotics at this point. (3) HTN (hypertension) Conclusion/Plan: continue Metoprolol, Add hydralazine as needed. (4) Acute blood loss anemia HGB is slight increased on today. pt had quite a bit of oozing during the case and his platelets are low. Continue to monitor and transfuse if below 7, do anemia study (5) Atrial fibrillation, new onset HR is controlled now. pt's home metoprolol dosage increase to Metoprolol twice daily, CTA yesterday showed no evidence of PE. It did display small bilateral pleural effusion, moderate emphysema, multiple, tiny, calcified nodules bilaterally (ddx are alveolar microlithiasis, chronic aspiration, or infection), and small fluid collection in gallbladder fossa which could be a hematoma or an abscess. Patient has a history of CLL, low platelets number, We will continue baby aspirin Lovenox now. Resolved, stable problems: (6)sepsis resolved. Patient has no fever, WBC continue trended down, blood cultures is negative for bacteremia. Patient presented as low degree of fever, significant had elevated WBC, Cholecystitis with gross purulence. We will continue antibiotics Zosyn, IV fluids, continue laboratory and vital signs monitor closely (7) Hx of bladder cancer Conclusion/Plan: Patient has a history of bladder cancer, he reported he had appointment next week Friday To see his oncologist. Advised patient continue follow-up. Now patient can urinate and stable. will order UA (8) Hx of chronic lymphocytic leukemia Conclusion/Plan: 01/05, As above, I called patient's oncologist and discussed the care plan. Per patient's oncologist suggestion, we will do clinical laboratory technician. oncologist believe this is a reaction to the infection and surgical stress Stable, patient may continue follow-up his oncologist. He is elevated WBC which is likely reactive from his infection, acute cholecystitis. (9) Hx of coronary artery disease Conclusion/Plan: Patient's upper abdominal pain, and bilateral shoulder pain are likely caused by his acute Cholecystitis. EKG and troponin are negative for [place]. pt had recently ECHO study show reserved EF and stress test was stable. resume home aspirin, continue tele monitor and vital monitor. (10) COPD (chronic obstructive pulmonary disease) Conclusion/Plan: pt report he took inhaler PRN at home, no home oxygen needed. pt has 100% O2 sats on room air. pt is stable, no acute respiratory distress. - Current Meds Current Meds: Current Medications Generic Name Dose Route Start Last Admin Trade Name Freq PRN Reason Stop Dose Admin Acetaminophen 650 mg 01/03/21 16:49 01/09/21 05:16 Acetaminophen 325 Mg Tablet PO 650 mg Q4HR PRN Administration Pain 1 to 4 Aspirin 81 mg 01/04/21 09:00 01/09/21 10:21 Aspirin Chew 81 Mg Tablet PO 81 mg DAILY DANA Administration Atorvastatin Calcium 80 mg 01/04/21 21:00 01/08/21 20:32 Atorvastatin 40 Mg Tablet PO 80 mg QPM DANA Administration Docusate Sodium 250 - 500 mg 01/08/21 09:00 01/09/21 10:37 Docusate Sodium 250 Mg Capsule PO 500 mg DAILY DANA Administration Enoxaparin Sodium 40 mg 01/05/21 09:00 01/09/21 10:25 Enoxaparin 40 Mg/0.4 Ml Syringe SUBQ 40 mg DAILY DANA Administration Hydralazine HCl 10 mg 01/03/21 16:59 01/05/21 00:57 Hydralazine Inj 20 Mg/Ml Vial IVP 10 mg Q6H PRN Administration Hypertensive Emergency Piperacillin Sod/Tazobactam 100 mls @ 25 mls/hr 01/03/21 18:00 01/09/21 10:28 Sod 3.375 gm/ Sodium Chloride IV 25 mls/hr Q8H DANA Administration Metoprolol Tartrate 25 mg 01/05/21 21:00 01/09/21 10:26 Metoprolol Tartrate 25 Mg Tablet PO 25 mg BID DANA Administration Morphine Sulfate 2 mg 01/03/21 16:49 01/07/21 11:33 Morphine 2 Mg/Ml Carpuject IVP 2 mg Q2HR PRN Administration Pain 8 to 10 Multi-Ingredient Mouthwash/Gargle 30 ml 01/09/21 08:38 01/09/21 10:19 Gi Cocktail 120 Ml Bottle PO 30 ml Q4H PRN Administration Abdominal Pain Multivitamins 1 tab 01/05/21 08:00 01/09/21 10:18 Multivitamin Tablet PO 1 tab DAILYWM DANA Administration Ondansetron HCl 4 mg 01/03/21 16:49 01/07/21 20:07 Ondansetron 4 Mg/2 Ml Vial IVP 4 mg Q6HR PRN Administration Nausea / Vomiting Oxycodone HCl 5 mg 01/03/21 16:49 01/07/21 18:16 Oxycodone 5 Mg Tablet PO 5 mg Q4HR PRN Administration Pain 5 to 7 Pantoprazole Sodium 40 mg 01/09/21 09:00 01/09/21 10:37 Pantoprazole 40 Mg Tablet PO 40 mg QDAC DANA Administration Polyethylene Glycol 17 gm 01/05/21 09:00 01/09/21 10:27 Polyethylene Glycol 3350 17 Gm Packet PO Not Given DAILY DANA Senna 8.6 - 17.2 mg 01/08/21 09:00 01/09/21 10:20 Senna 8.6 Mg Tablet PO 8.6 mg DAILY DANA Administration Sodium Chloride 10 ml 01/03/21 16:49 01/07/21 19:52 Sodium Chloride Flush 0.9% 10 Ml Syringe IVP 10 ml PRN PRN Administration NEEDED PER PROVIDER ORDERS Sodium Chloride 10 ml 01/03/21 17:00 01/09/21 01:25 Sodium Chloride Flush 0.9% 10 Ml Syringe IVP 10 ml 0100,0900,1700 DANA Administration Throat Lozenges 1 lozenge 01/09/21 00:11 01/09/21 05:17 Benzocaine/Menthol Lozenge MM 1 lozenge Q2HR PRN Administration Throat pain - Lab Result Fish Bone Diagrams: 01/09/21 05:54 01/09/21 05:54 - Additional Planning My Orders: My Active Orders 01/09/21 08:38 Gi Cocktail 30 ml PO Q4H PRN 01/09/21 09:00 Pantoprazole [Protonix] 40 mg PO QDAC 01/09/21 17:00 Saccharomyces Boulardii [Florastor] 250 mg PO BIDWM Subjective - Subjective Patient Reports: Feeling Better Objective Vital Signs: Vital Signs - 24 hr 01/08/21 01/08/21 01/08/21 17:00 20:32 20:39 Temperature 37.2 C 37 C Heart Rate [ Activity] Heart Rate [ Brachial] Heart Rate [ 57 L 56 L Monitoring electrodes] Heart Rate [ Supine] Respiratory 18 20 Rate Blood Pressure 138/51 H Blood Pressure [Activity] Blood Pressure 138/51 H [Left Brachial artery] Blood Pressure 138/64 H [Right Brachial artery] Blood Pressure [Supine] O2 Saturation 100 98 01/09/21 01/09/21 01/09/21 00:27 05:40 08:20 Temperature 36.7 C 37.8 C 37.1 C Heart Rate [ Activity] Heart Rate [ 60 57 L 60 Brachial] Heart Rate [ Monitoring electrodes] Heart Rate [ Supine] Respiratory 16 16 20 Rate Blood Pressure Blood Pressure [Activity] Blood Pressure [Left Brachial artery] Blood Pressure 140/48 H 154/65 H 146/52 H [Right Brachial artery] Blood Pressure [Supine] O2 Saturation 96 97 96 01/09/21 01/09/21 01/09/21 10:26 11:50 14:07 Temperature 37.6 C Heart Rate [ 70 Activity] Heart Rate [ 73 Brachial] Heart Rate [ Monitoring electrodes] Heart Rate [ 73 Supine] Respiratory 16 Rate Blood Pressure 146/52 H Blood Pressure 152/95 H [Activity] Blood Pressure [Left Brachial artery] Blood Pressure 152/95 H [Right Brachial artery] Blood Pressure 143/54 H [Supine] O2 Saturation 99 Oxygen O2 Source Room air I&O (Last 24 Hrs): Intake and Output Totals x24h 01/07/21 01/08/21 01/09/21 23:59 23:59 23:59 Intake Total 129.613 8603 880 Output Total 2765 1530 570 Balance -1980.000 -45 310 General: Alert, Oriented x3, Cooperative, No acute distress HEENT: Atraumatic Neck: Supple Lymphatic: no adenopathy Neuro: Alert, Non Focal, Oriented Times 3 Cardiovascular: Regular rate, Normal S1, Normal S2 Respiratory: Chest non-tender, No respiratory distress Abdomen: Normal bowel sounds, Soft Extremities: Normal pulses - Results Results: Laboratory Results WBC 18.2 x10^3/uL (4.8-10.8) H 01/09/21 05:54 RBC 2.75 10^6/uL (4.70-6.10) L 01/09/21 05:54 Hgb 8.7 g/dL (14.0-18.0) L 01/09/21 05:54 Hct 27.7 % (42.0-52.0) L 01/09/21 05:54 MCV 100.7 fL (80.0-94.0) H 01/09/21 05:54 MCH 31.6 pg (27.0-31.0) H 01/09/21 05:54 MCHC 31.4 g/dL (32.0-36.0) L 01/09/21 05:54 RDW 15.2 % (12.0-15.0) H 01/09/21 05:54 Plt Count 131 10^3/uL (130-450) 01/09/21 05:54 MPV 9.4 fL (7.4-11.4) 01/09/21 05:54 Neut # (Auto) Not Reportable 01/09/21 05:54 Lymph # (Auto) Not Reportable 01/09/21 05:54 [place] # (Auto) Not Reportable 01/09/21 05:54 Eos # (Auto) Not Reportable 01/09/21 05:54 Baso # (Auto) Not Reportable 01/09/21 05:54 Absolute Nucleated RBC Not Reportable 01/09/21 05:54 Total Counted 100 01/09/21 05:54 Band Neuts % (Manual) 0 % (0-10) 01/09/21 05:54 Reactive Lymphs % (Man) 1 % 01/07/21 06:40 Abnorm Lymph % (Manual) 3 % 01/09/21 05:54 Nucleated RBC % Not Reportable 01/09/21 05:54 Neutrophils # (Manual) 12.9 10^3/uL (1.5-6.6) H 01/09/21 05:54 Lymphocytes # (Manual) 3.3 10^3/uL (1.5-3.5) 01/09/21 05:54 Monocytes # (Manual) 2.0 10^3/uL (0.0-1.0) H 01/09/21 05:54 Eosinophils # (Manual) 0.0 10^3/uL (0-0.7) 01/09/21 05:54 Basophils # (Manual) 0.0 10^3/uL (0-0.1) 01/09/21 05:54 Differential Comment MANUAL DIFFERENTIAL 01/09/21 05:54 Manual Slide Review Indicated 01/07/21 06:40 WBC Morphology NORMAL APPEARANCE (NORMAL) 01/09/21 05:54 Platelet Estimate NORMAL (130-450,000) (NORMAL) 01/09/21 05:54 Platelet Morphology NORMAL APPEARANCE (NORMAL) 01/09/21 05:54 RBC Morph Micro Appear NORMAL APPEARANCE (NORMAL) 01/09/21 05:54 Sodium 143 mmol/L (135-145) 01/09/21 05:54 Potassium 3.5 mmol/L (3.5-5.0) 01/09/21 05:54 Chloride 109 mmol/L (101-111) 01/09/21 05:54 Carbon Dioxide 26 mmol/L (21-32) 01/09/21 05:54 Anion Gap 8.0 (6-13) 01/09/21 05:54 BUN 28 mg/dL (6-20) H 01/09/21 05:54 Creatinine 1.2 mg/dL (0.6-1.2) 01/09/21 05:54 Estimated GFR (MDRD) 57 (>89) L 01/09/21 05:54 Glucose 108 mg/dL (70-100) H 01/09/21 05:54 Calcium 8.2 mg/dL (8.5-10.3) L 01/09/21 05:54 Total Bilirubin 1.8 mg/dL (0.2-1.0) H 01/09/21 05:54 Direct Bilirubin 2.0 mg/dL (0.1-0.5) H 01/05/21 05:19 AST 31 IU/L (10-42) 01/09/21 05:54 ALT 24 IU/L (10-60) 01/09/21 05:54 Alkaline Phosphatase 89 IU/L (42-121) 01/09/21 05:54 Troponin I High Sens 49.3 ng/L (2.3-19.7) H* 01/08/21 13:45 Total Protein 5.1 g/dL (6.7-8.2) L 01/09/21 05:54 Albumin 2.9 g/dL (3.2-5.5) L 01/09/21 05:54 Globulin 2.2 g/dL (2.1-4.2) 01/09/21 05:54 Albumin/Globulin Ratio 1.3 (1.0-2.2) 01/09/21 05:54 Lipase 28 U/L (22-51) 01/03/21 11:35 Urine Color YELLOW 01/03/21 21:41 Urine Clarity CLEAR (CLEAR) 01/03/21 21:41 Urine pH 7.5 PH (5.0-7.5) 01/03/21 21:41 Ur Specific [place] 1.010 (1.002-1.030) 01/03/21 21:41 Urine Protein TRACE mg/dL (NEGATIVE) 01/03/21 21:41 Urine Glucose (UA) NEGATIVE mg/dL (NEGATIVE) 01/03/21 21:41 Urine Ketones NEGATIVE mg/dL (NEGATIVE) 01/03/21 21:41 Urine Occult Blood TRACE-LYSE (NEGATIVE) 01/03/21 21:41 Urine Nitrite NEGATIVE (NEGATIVE) 01/03/21 21:41 Urine Bilirubin NEGATIVE (NEGATIVE) 01/03/21 21:41 Urine Urobilinogen 0.2 (NORMAL) E.U./dL (NORMAL) 01/03/21 21:41 Ur Leukocyte Esterase NEGATIVE (NEGATIVE) 01/03/21 21:41 Urine RBC 0-5 /HPF (0-5) 01/03/21 21:41 Urine WBC 0-3 /HPF (0-3) 01/03/21 21:41 Ur Squamous Epith Cells RARE Squamous (<= Few) 01/03/21 21:41 Urine Bacteria Rare /HPF (None Seen) 01/03/21 21:41 Urine Culture Comments NOT INDICATED 01/03/21 21:41 Nasal Adenovirus (PCR) NOT DETECTED 01/03/21 14:20 Nasal B. parapertussis DNA (PCR) NOT DETECTED 01/03/21 14:20 Nasal Coronavir 229E PCR NOT DETECTED 01/03/21 14:20 Nasal Coronavir HKU1 PCR NOT DETECTED 01/03/21 14:20 Nasal Coronavir NL63 PCR NOT DETECTED 01/03/21 14:20 Nasal Coronavir OC43 PCR NOT DETECTED 01/03/21 14:20 Nasal Enterovir/Rhinovir PCR NOT DETECTED 01/03/21 14:20 Nasal Influenza B PCR NOT DETECTED 01/03/21 14:20 Nasal Influenza A PCR NOT DETECTED 01/03/21 14:20 Nasal Parainfluen 1 PCR NOT DETECTED 01/03/21 14:20 Nasal Parainfluen 2 PCR NOT DETECTED 01/03/21 14:20 Nasal Parainfluen 3 PCR NOT DETECTED 01/03/21 14:20 Nasal Parainfluen 4 PCR NOT DETECTED 01/03/21 14:20 Nasal RSV (PCR) NOT DETECTED 01/03/21 14:20 Nasal B.pertussis DNA PCR NOT DETECTED 01/03/21 14:20 Nasal C.pneumoniae (PCR) NOT DETECTED 01/03/21 14:20 Mohit Human Metapneumo PCR NOT DETECTED 01/03/21 14:20 Nasal M.pneumoniae (PCR) NOT DETECTED 01/03/21 14:20 Nasal SARS-CoV-2 (PCR) NOT DETECTED 01/03/21 14:20 Sepsis Event Note (H) - Evaluation Current Stage of Sepsis: Resolved Possible source of Sepsis: positive: GI tract/intra-abdominal - Sepsis Criteria Sepsis Criteria: Recorded Temperature greater than 38.3C or Less than 36C, WBC count greater than 12,000 or less than 4000 ABX Reporting Has patient been on IV antibiotics over the past 48 hours?: Yes Current Medications - Current Medications Current Medications: Active Medications Acetaminophen (Acetaminophen 325 Mg Tablet) 650 mg PO Q4HR PRN PRN Reason: Pain 1 to 4 Last Admin: 01/09/21 05:16 Dose: 650 mg Documented by: Albuterol (Albuterol Neb 2.5 Mg/3 Ml) 2.5 mg INH RTQ4H PRN PRN Reason: Wheezing Albuterol/Ipratropium (Ipratropium/Albuterol 3 Ml Neb) 3 ml INH RTQID PRN PRN Reason: Shortness of Air/Wheezing Aspirin (Aspirin Chew 81 Mg Tablet) 81 mg PO DAILY [facility] Last Admin: 01/09/21 10:21 Dose: 81 mg Documented by: Atorvastatin Calcium (Atorvastatin 40 Mg Tablet) 80 mg PO QPM [facility] Last Admin: 01/08/21 20:32 Dose: 80 mg Documented by: Docusate Sodium (Docusate Sodium 250 Mg Capsule) 250 - 500 mg PO DAILY [facility] Last Admin: 01/09/21 10:37 Dose: 500 mg Documented by: Enoxaparin Sodium (Enoxaparin 40 Mg/0.4 Ml Syringe) 40 mg SUBQ DAILY [facility] Last Admin: 01/09/21 10:25 Dose: 40 mg Documented by: Hydralazine HCl (Hydralazine Inj 20 Mg/Ml Vial) 10 mg IVP Q6H PRN PRN Reason: Hypertensive Emergency Last Admin: 01/05/21 00:57 Dose: 10 mg Documented by: Piperacillin Sod/Tazobactam (Sod 3.375 gm/ Sodium Chloride) 100 mls @ 25 mls/hr IV Q8H [facility] Last Admin: 01/09/21 10:28 Dose: 25 mls/hr Documented by: Metoprolol Tartrate (Metoprolol Tartrate 25 Mg Tablet) 25 mg PO BID [facility] Last Admin: 01/09/21 10:26 Dose: 25 mg Documented by: Morphine Sulfate (Morphine 2 Mg/Ml Carpuject) 2 mg IVP Q2HR PRN PRN Reason: Pain 8 to 10 Last Admin: 01/07/21 11:33 Dose: 2 mg Documented by: Multi-Ingredient Mouthwash/Gargle (Gi Cocktail 120 Ml Bottle) 30 ml PO Q4H PRN PRN Reason: Abdominal Pain Last Admin: 01/09/21 10:19 Dose: 30 ml Documented by: Multivitamins (Multivitamin Tablet) 1 tab PO DAILYWM [facility] Last Admin: 01/09/21 10:18 Dose: 1 tab Documented by: Nitroglycerin (Nitroglycerin Sl 0.4 Mg Tablet) 0.4 mg SL Q5MIN PRN PRN Reason: Chest Pain Ondansetron HCl (Ondansetron 4 Mg/2 Ml Vial) 4 mg IVP Q6HR PRN PRN Reason: Nausea / Vomiting Last Admin: 01/07/21 20:07 Dose: 4 mg Documented by: Oxycodone HCl (Oxycodone 5 Mg Tablet) 5 mg PO Q4HR PRN PRN Reason: Pain 5 to 7 Last Admin: 01/07/21 18:16 Dose: 5 mg Documented by: Pantoprazole Sodium (Pantoprazole 40 Mg Tablet) 40 mg PO QDAC [facility] Last Admin: 01/09/21 10:37 Dose: 40 mg Documented by: Polyethylene Glycol (Polyethylene Glycol 3350 17 Gm Packet) 17 gm PO DAILY [facility] Last Admin: 01/09/21 10:27 Dose: Not Given Documented by: Saccharomyces Boulardii (Saccharomyces Boulardii 250 Mg Capsule) 250 mg PO BIDWM [facility] Senna (Senna 8.6 Mg Tablet) 8.6 - 17.2 mg PO DAILY [facility] Last Admin: 01/09/21 10:20 Dose: 8.6 mg Documented by: Sodium Chloride (Sodium Chloride Flush 0.9% 10 Ml Syringe) 10 ml IVP PRN PRN PRN Reason: NEEDED PER PROVIDER ORDERS Last Admin: 01/07/21 19:52 Dose: 10 ml Documented by: Sodium Chloride (Sodium Chloride Flush 0.9% 10 Ml Syringe) 10 ml IVP 0100,0900,1700 [facility] Last Admin: 01/09/21 01:25 Dose: 10 ml Documented by: Throat Lozenges (Benzocaine/Menthol Lozenge) 1 lozenge MM Q2HR PRN PRN Reason: Throat pain Last Admin: 01/09/21 05:17 Dose: 1 lozenge Documented by: Aspirin 81 mg PO DAILY 04/29/18 B Complex W-C No.20/Folic Acid [Mynephron Capsule] 1 cap PO DAILY 04/29/18 Calcium Carbonate [Calcium] 600 mg PO DAILY 04/29/18 Metoprolol Tartrate 25 mg PO DAILY 04/29/18 Atorvastatin Calcium [Lipitor] 80 mg PO QPM 01/04/21 Multivitamin 1 tab PO DAILY 01/04/21
[2021-01-09 14:32] LABS: ABSOLUTE RETICS # AUTO 0.107 10^6/uL (0.020-0.110); RED BLOOD COUNT 2.72 10^6/uL (4.70-6.10); RETICULOCYTE COUNT % (AUTO) 3.92 % (0.5-2.3)
[2021-01-09] MEDS: SODIUM CHLORIDE FLUSH 0.9% 10 ML SYRINGE IVP PRN (14:34)
--- NOTE | 2021-01-09 14:52 | PROVIDER PROGRESS NOTE ---
Subjective - General Admit Date: 01/03/21 Procedure Date: 01/03/21 Post Op Days: 6 Procedure Performed: Laparoscopic cholecystectomy - Review of Systems Wound/Incisions: positive: Healing well, Other (significant bruising primarily limited to the lower abdomen) Drain Type: Steven Drain Output Description: Bloody but clearing Gastrointestinal: positive: Abdominal pain, Flatus. negative: Nausea, Vomiting All Other Systems: positive: Reviewed and negative - Other Other Information/Narrative: Much better today. Denies any pain. Eating and having bowel movements now. Throat issue seems to have improved. Objective - Patient Data Vital Signs: Vital Signs x48h Temp Pulse Pulse Pulse Resp BP BP 01/09/21 14:07 37.6 C 73 16 01/09/21 11:50 70 73 152/95 H 01/09/21 10:26 146/52 H 01/09/21 08:20 37.1 C 60 20 BP BP Pulse Ox 01/09/21 14:07 152/95 H 99 01/09/21 11:50 143/54 H 01/09/21 10:26 01/09/21 08:20 146/52 H 96 Intake & Output: Intake and Output Totals x24h 01/07/21 01/08/21 01/09/21 23:59 23:59 23:59 Intake Total 086.945 5735 980 Output Total 2765 1530 570 Balance -1980.000 -45 410 - Lab Results Lab Results: 01/09/21 05:54 01/09/21 05:54 Other Lab Results: Lab Results x24hrs 01/09/21 01/09/21 01/09/21 Range/Units 14:25 05:54 05:54 WBC 18.2 H (4.8-10.8) x10^3/uL RBC 2.75 L (4.70-6.10) 10^6/uL Hgb 8.7 L (14.0-18.0) g/dL Hct 27.7 L (42.0-52.0) % MCV 100.7 H (80.0-94.0) fL MCH 31.6 H (27.0-31.0) pg MCHC 31.4 L (32.0-36.0) g/dL RDW 15.2 H (12.0-15.0) % Plt Count 131 (130-450) 10^3/uL MPV 9.4 (7.4-11.4) fL Neut # (Auto) Not Reportable Lymph # (Auto) Not Reportable [place] # (Auto) Not Reportable Eos # (Auto) Not Reportable Baso # (Auto) Not Reportable Absolute Nucleated RBC Not Reportable Total Counted 100 Band Neuts % (Manual) 0 (0 - 10) % Abnorm Lymph % (Manual) 3 % Nucleated RBC % Not Reportable Neutrophils # (Manual) 12.9 H (1.5-6.6) 10^3/uL Lymphocytes # (Manual) 3.3 (1.5-3.5) 10^3/uL Monocytes # (Manual) 2.0 H (0.0-1.0) 10^3/uL Eosinophils # (Manual) 0.0 (0-0.7) 10^3/uL Basophils # (Manual) 0.0 (0-0.1) 10^3/uL Differential Comment MANUAL DIFFERENTIAL WBC Morphology NORMAL APPEARANCE (NORMAL) Platelet Estimate NORMAL (130-450,000) (NORMAL) Platelet Morphology NORMAL APPEARANCE (NORMAL) RBC Morph Micro Appear NORMAL APPEARANCE (NORMAL) Sodium 143 (135-145) mmol/L Potassium 3.5 (3.5-5.0) mmol/L Chloride 109 (101-111) mmol/L Carbon Dioxide 26 (21-32) mmol/L Anion Gap 8.0 (6-13) BUN 28 H (6-20) mg/dL Creatinine 1.2 (0.6-1.2) mg/dL Estimated GFR (MDRD) 57 L (>89) Glucose 108 H (70-100) mg/dL Calcium 8.2 L (8.5-10.3) mg/dL Total Bilirubin 1.8 H (0.2-1.0) mg/dL AST 31 (10-42) IU/L ALT 24 (10-60) IU/L Alkaline Phosphatase 89 (42-121) IU/L Lactate Dehydrogenase 293 H (91-225) IU/L Total Protein 5.1 L (6.7-8.2) g/dL Albumin 2.9 L (3.2-5.5) g/dL Globulin 2.2 (2.1-4.2) g/dL Albumin/Globulin Ratio 1.3 (1.0-2.2) - Current Medications Current Medications: Current Medications Generic Name Dose Route Start Last Admin Trade Name Freq PRN Reason Stop Dose Admin Acetaminophen 650 mg 01/03/21 16:49 01/09/21 14:34 Acetaminophen 325 Mg Tablet PO 650 mg Q4HR PRN Administration Pain 1 to 4 Aspirin 81 mg 01/04/21 09:00 01/09/21 10:21 Aspirin Chew 81 Mg Tablet PO 81 mg DAILY DANA Administration Atorvastatin Calcium 80 mg 01/04/21 21:00 01/08/21 20:32 Atorvastatin 40 Mg Tablet PO 80 mg QPM DANA Administration Docusate Sodium 250 - 500 mg 01/08/21 09:00 01/09/21 10:37 Docusate Sodium 250 Mg Capsule PO 500 mg DAILY DANA Administration Enoxaparin Sodium 40 mg 01/05/21 09:00 01/09/21 10:25 Enoxaparin 40 Mg/0.4 Ml Syringe SUBQ 40 mg DAILY DANA Administration Hydralazine HCl 10 mg 01/03/21 16:59 01/05/21 00:57 Hydralazine Inj 20 Mg/Ml Vial IVP 10 mg Q6H PRN Administration Hypertensive Emergency Piperacillin Sod/Tazobactam 100 mls @ 25 mls/hr 01/03/21 18:00 01/09/21 14:28 Sod 3.375 gm/ Sodium Chloride IV Infused Q8H DANA Infusion Metoprolol Tartrate 25 mg 01/05/21 21:00 01/09/21 10:26 Metoprolol Tartrate 25 Mg Tablet PO 25 mg BID DANA Administration Morphine Sulfate 2 mg 01/03/21 16:49 01/07/21 11:33 Morphine 2 Mg/Ml Carpuject IVP 2 mg Q2HR PRN Administration Pain 8 to 10 Multi-Ingredient Mouthwash/Gargle 30 ml 01/09/21 08:38 01/09/21 10:19 Gi Cocktail 120 Ml Bottle PO 30 ml Q4H PRN Administration Abdominal Pain Multivitamins 1 tab 01/05/21 08:00 01/09/21 10:18 Multivitamin Tablet PO 1 tab DAILYWM DANA Administration Ondansetron HCl 4 mg 01/03/21 16:49 01/07/21 20:07 Ondansetron 4 Mg/2 Ml Vial IVP 4 mg Q6HR PRN Administration Nausea / Vomiting Oxycodone HCl 5 mg 01/03/21 16:49 01/07/21 18:16 Oxycodone 5 Mg Tablet PO 5 mg Q4HR PRN Administration Pain 5 to 7 Pantoprazole Sodium 40 mg 01/09/21 09:00 01/09/21 10:37 Pantoprazole 40 Mg Tablet PO 40 mg QDAC DANA Administration Polyethylene Glycol 17 gm 01/05/21 09:00 01/09/21 10:27 Polyethylene Glycol 3350 17 Gm Packet PO Not Given DAILY DANA Senna 8.6 - 17.2 mg 01/08/21 09:00 01/09/21 10:20 Senna 8.6 Mg Tablet PO 8.6 mg DAILY DANA Administration Sodium Chloride 10 ml 01/03/21 16:49 01/09/21 14:34 Sodium Chloride Flush 0.9% 10 Ml Syringe IVP 10 ml PRN PRN Administration NEEDED PER PROVIDER ORDERS Sodium Chloride 10 ml 01/03/21 17:00 01/09/21 14:39 Sodium Chloride Flush 0.9% 10 Ml Syringe IVP Not Given 0100,0900,1700 DANA Throat Lozenges 1 lozenge 01/09/21 00:11 01/09/21 05:17 Benzocaine/Menthol Lozenge MM 1 lozenge Q2HR PRN Administration Throat pain
[2021-01-09 14:58] LABS: % IRON SATURATION 10 % (20-50); IRON 26 ug/dL (45-182); TOTAL IRON BINDING CAPACITY 249 ug/dL (250-450); TRANSFERRIN 178 mg/dL (180-329)
[2021-01-09 15:08] LABS: FERRITIN 358.4 ng/mL (23.9-336.2)
[2021-01-09] MEDS: SACCHAROMYCES BOULARDII 250 MG CAPSULE PO SCH (17:23)
[2021-01-09] MEDS: FERROUS GLUCONATE 324 MG TABLET PO SCH (19:08)
[2021-01-09] MEDS: ATORVASTATIN 40 MG TABLET PO SCH (21:30)
[2021-01-10] MEDS: PIPERACILLIN/TAZOBACTAM 3.375 GM in SODIUM CHLORIDE 0.9% MINIBAG 100 ML IV SCH ×3 (01:47→18:06)
[2021-01-10] MEDS: SODIUM CHLORIDE FLUSH 0.9% 10 ML SYRINGE IVP SCH ×3 (01:47→17:11)
[2021-01-10] MEDS: PANTOPRAZOLE 40 MG TABLET PO SCH (05:48)
[2021-01-10 06:30] LABS: BASOPHILS % (AUTO) 0.1 %; EOSINOPHILS % (AUTO) 0.9 %; HCT - HEMATOCRIT 26.9 % (42.0-52.0); HGB - HEMOGLOBIN 8.5 g/dL (14.0-18.0); MEAN CORPUSCULAR HEMOGLOBIN 31.3 pg (27.0-31.0); MEAN CORPUSCULAR HGB CONC 31.6 g/dL (32.0-36.0); MEAN CORPUSCULAR VOLUME 98.9 fL (80.0-94.0); MEAN PLATELET VOLUME 9.2 fL (7.4-11.4); NEUTROPHILS % (AUTO) 24.1 %; PLT - PLATELET COUNT 149 10^3/uL (130-450); RED BLOOD COUNT 2.72 10^6/uL (4.70-6.10); WHITE BLOOD COUNT 15.3 x10^3/uL (4.8-10.8)
[2021-01-10 06:36] LABS: ABNORMAL LYMPHS % (MANUAL) 0 %; BAND NEUTROPHILS % (MANUAL) 0 %
[2021-01-10 06:39] LABS: ALBUMIN 2.7 g/dL (3.2-5.5); ALBUMIN/GLOBULIN RATIO 1.3 (1.0-2.2); CALCIUM 8.1 mg/dL (8.5-10.3); CREATININE 1.1 mg/dL (0.6-1.2); POTASSIUM 3.7 mmol/L (3.5-5.0); TOTAL PROTEIN 4.8 g/dL (6.7-8.2)
[2021-01-10 07:50] LABS: EOSINOPHILS # (MANUAL) 0.2 10^3/uL (0-0.7); LYMPHOCYTES # (MANUAL) 10.4 10^3/uL (1.5-3.5); LYMPHOCYTES % (MANUAL) 68 %; MONOCYTES # (MANUAL) 0.8 10^3/uL (0.0-1.0)
[2021-01-10 07:53] LABS: DIFFERENTIAL COMMENT MANUAL DIFFERENTIAL; PLATELET ESTIMATE, MANUAL NORMAL (130-450,000) (NORMAL); PLATELET MORPHOLOGY NORMAL APPEARANCE (NORMAL); RBC MORPHOLOGY (MULTIPLE) 1+ HYPOCHROMASIA (NORMAL); WBC MORPHOLOGY (MULTIPLE) 1+ SMUDGE CELLS (NORMAL)
[2021-01-10] MEDS: MULTIVITAMIN TABLET PO SCH (08:14)
[2021-01-10] MEDS: FERROUS GLUCONATE 324 MG TABLET PO SCH (08:14)
[2021-01-10] MEDS: SACCHAROMYCES BOULARDII 250 MG CAPSULE PO SCH ×3 (08:14→17:10)
[2021-01-10] MEDS: DOCUSATE SODIUM 250 MG CAPSULE PO SCH (09:00)
[2021-01-10] MEDS: ASPIRIN CHEW 81 MG TABLET PO SCH (09:00)
[2021-01-10] MEDS: METOPROLOL TARTRATE 25 MG TABLET PO SCH ×2 (09:01→21:18)
[2021-01-10] MEDS: ENOXAPARIN 40 MG/0.4 ML SYRINGE SUBQ SCH (09:01)
[2021-01-10] MEDS: polyethylene glycoL 3350 17 GM PACKET PO SCH (11:18)
[2021-01-10] MEDS: SENNA 8.6 MG TABLET PO SCH (11:18)
[2021-01-10] MEDS: ACETAMINOPHEN 325 MG TABLET PO PRN ×2 (12:44→16:41)
--- NOTE | 2021-01-10 14:23 | PROVIDER PROGRESS NOTE ---
Assessment/Plan - Problem List (1) Acute cholecystitis Assessment/Plan: 01/10 pt report he did not have much sleep on last night, we will try closely door possible and let pt has sleep on the day. s/p of cholecystectomy day 6. WBC is 15 today, is steady trended down now. pt had gangrenous cholecystitis per surgeon's report. pt's drainage tube was removed on yesterday. Patient ate about 30% of his diet. Patient had diarrhea today. We will continue antibiotics On today, Increases dosage of probiotics, test C.Diff. Patient reported he feel better, His abdominal pain is significantly improved. Patient ate most of his breakfast, also patient had large bowel movement, Patient will walk at hallway with nurse assisting. WBC is treading down to 18. total Bili is treading down. We will continue follow-up surgeon recommendations, continue antibiotics Zosyn, add probiotics, Continue to work with PT and OT, And advance patient diet per surgeon (2)leukocytosis 01/10 WBC 15, Patient has no fever. pt has hx of CLL. there is 1+smudge cell in CBC, will continue antibiotics on today, add probiotics dosage. continue lab monitor. Patient's WBC is elevated to 51.5 then down to 43.4, 24, and 20.5, today is 18, continue trending down. pt has hx of CLL. pt report he saw his oncologist Dr. Umer Eisenberg on November 11. I called Dr. Umer Eisenberg, updated pt's medical conditions. Dr. Umer Eisenberg believe this elevated WBC is reaction to infection and surgical stress, suggest to continue lab monitor. I also consulted with [place] [facility] [place], he suggest possible reaction and suggest to do peripheral smear study to see if pt has Smudge cells. We have ordered peripheral smear st . CBC study did not show Smudge cells today. continue to monitor WBC, continue antibiotics at this point. (3)diarrhea 01-10 Patient has diarrhea on today, pt is on antibiotics for s/p care for his gangrenous cholecystitis, WBC is 15 on today. increase probiotics dosage, check C.Dif, start with IVF, continue lab monitor. (4) HTN (hypertension) Conclusion/Plan: continue Metoprolol, Add hydralazine as needed. (5) Acute blood loss anemia HGB is slight increased on today. pt had quite a bit of oozing during the case and his platelets are low. Continue to monitor and transfuse if below 7, do anemia study (6) Atrial fibrillation, new onset 10-20, HR is stable, continue Metoprolol twice daily, Continue court recording monitor HR is controlled now. pt's home metoprolol dosage increase to Metoprolol twice daily, CTA yesterday showed no evidence of PE. It did display small bilateral pleural effusion, moderate emphysema, multiple, tiny, calcified nodules bilaterally (ddx are alveolar microlithiasis, chronic aspiration, or infection), and small fluid collection in gallbladder fossa which could be a hematoma or an abscess. Patient has a history of CLL, low platelets number, We will continue baby aspirin Lovenox now. (7)sepsis resolved. Patient has no fever, WBC continue trended down, blood cultures is negative for bacteremia. Patient presented as low degree of fever, significant had elevated WBC, Cholecystitis with gross purulence. We will continue antibiotics Zosyn, IV fluids, continue laboratory and vital signs monitor closely (8) Hx of bladder cancer Conclusion/Plan: Patient has a history of bladder cancer, he reported he had appointment next week Friday To see his oncologist. Advised patient continue follow-up. Now patient can urinate and stable. will order UA (9) Hx of chronic lymphocytic leukemia Conclusion/Plan: 01/05, As above, I called patient's oncologist and discussed the care plan. Per patient's oncologist suggestion, we will do laboratory inspector. oncologist believe this is a reaction to the infection and surgical stress Stable, patient may continue follow-up his oncologist. He is elevated WBC which is likely reactive from his infection, acute cholecystitis. (10) Hx of coronary artery disease Conclusion/Plan: Patient's upper abdominal pain, and bilateral shoulder pain are likely caused by his acute Cholecystitis. EKG and troponin are negative for DE. pt had recently ECHO study show reserved EF and stress test was stable. resume home aspirin, continue tele monitor and vital monitor. (11) COPD (chronic obstructive pulmonary disease) Conclusion/Plan: pt report he took inhaler PRN at home, no home oxygen needed. pt has 100% O2 sats on room air. pt is stable, no acute respiratory distress. - Current Meds Current Meds: Current Medications Generic Name Dose Route Start Last Admin Trade Name Freq PRN Reason Stop Dose Admin Acetaminophen 650 mg 01/03/21 16:49 01/10/21 12:44 Acetaminophen 325 Mg Tablet PO 650 mg Q4HR PRN Administration Pain 1 to 4 Aspirin 81 mg 01/04/21 09:00 01/10/21 09:00 Aspirin Chew 81 Mg Tablet PO 81 mg DAILY DANA Administration Atorvastatin Calcium 80 mg 01/04/21 21:00 01/09/21 21:30 Atorvastatin 40 Mg Tablet PO 80 mg QPM DANA Administration Docusate Sodium 250 - 500 mg 01/08/21 09:00 01/10/21 09:00 Docusate Sodium 250 Mg Capsule PO 250 mg DAILY DANA Administration Enoxaparin Sodium 40 mg 01/05/21 09:00 01/10/21 09:01 Enoxaparin 40 Mg/0.4 Ml Syringe SUBQ 40 mg DAILY DANA Administration Ferrous Gluconate 324 mg 01/09/21 19:00 01/10/21 08:14 Ferrous Gluconate 324 Mg Tablet PO 324 mg DAILYWM DANA Administration Hydralazine HCl 10 mg 01/03/21 16:59 01/05/21 00:57 Hydralazine Inj 20 Mg/Ml Vial IVP 10 mg Q6H PRN Administration Hypertensive Emergency Piperacillin Sod/Tazobactam 100 mls @ 25 mls/hr 01/03/21 18:00 01/10/21 10:29 Sod 3.375 gm/ Sodium Chloride IV 25 mls/hr Q8H DANA Administration Metoprolol Tartrate 25 mg 01/05/21 21:00 01/10/21 09:01 Metoprolol Tartrate 25 Mg Tablet PO 25 mg BID DANA Administration Morphine Sulfate 2 mg 01/03/21 16:49 01/07/21 11:33 Morphine 2 Mg/Ml Carpuject IVP 2 mg Q2HR PRN Administration Pain 8 to 10 Multi-Ingredient Mouthwash/Gargle 30 ml 01/09/21 08:38 01/09/21 10:19 Gi Cocktail 120 Ml Bottle PO 30 ml Q4H PRN Administration Abdominal Pain Multivitamins 1 tab 01/05/21 08:00 01/10/21 08:14 Multivitamin Tablet PO 1 tab DAILYWM DANA Administration Ondansetron HCl 4 mg 01/03/21 16:49 01/07/21 20:07 Ondansetron 4 Mg/2 Ml Vial IVP 4 mg Q6HR PRN Administration Nausea / Vomiting Oxycodone HCl 5 mg 01/03/21 16:49 01/07/21 18:16 Oxycodone 5 Mg Tablet PO 5 mg Q4HR PRN Administration Pain 5 to 7 Pantoprazole Sodium 40 mg 01/09/21 09:00 01/10/21 05:48 Pantoprazole 40 Mg Tablet PO 40 mg QDAC DANA Administration Polyethylene Glycol 17 gm 01/05/21 09:00 01/10/21 11:18 Polyethylene Glycol 3350 17 Gm Packet PO Not Given DAILY DANA Saccharomyces Boulardii 250 mg 01/09/21 17:00 01/10/21 08:14 Saccharomyces Boulardii 250 Mg Capsule PO 250 mg BIDWM DANA Administration Senna 8.6 - 17.2 mg 01/08/21 09:00 01/10/21 11:18 Senna 8.6 Mg Tablet PO Not Given DAILY DANA Sodium Chloride 10 ml 01/03/21 16:49 01/09/21 14:34 Sodium Chloride Flush 0.9% 10 Ml Syringe IVP 10 ml PRN PRN Administration NEEDED PER PROVIDER ORDERS Sodium Chloride 10 ml 01/03/21 17:00 01/10/21 11:21 Sodium Chloride Flush 0.9% 10 Ml Syringe IVP Not Given 0100,0900,1700 DANA Throat Lozenges 1 lozenge 01/09/21 00:11 01/09/21 05:17 Benzocaine/Menthol Lozenge MM 1 lozenge Q2HR PRN Administration Throat pain - Lab Result Fish Bone Diagrams: 01/10/21 06:21 01/10/21 06:21 - Additional Planning My Orders: My Active Orders 01/09/21 17:00 Saccharomyces Boulardii [Florastor] 250 mg PO BIDWM 01/09/21 19:00 Ferrous Gluconate [Fergon] 324 mg PO DAILYWM 01/10/21 11:21 Nutrition Consult [CONS] Routine Subjective - Subjective Patient Reports: Feeling Better Objective Vital Signs: Vital Signs - 24 hr 01/09/21 01/09/21 01/09/21 16:49 21:00 23:35 Temperature 37.9 C 37.4 C 37.3 C Heart Rate [ 52 L 57 L 58 L Brachial] Respiratory 18 20 16 Rate Blood Pressure Blood Pressure 146/58 H 152/62 H 151/46 H [Right Brachial artery] O2 Saturation 98 98 97 01/10/21 01/10/21 01/10/21 05:15 07:55 09:01 Temperature 36.8 C 36.6 C Heart Rate [ 60 62 Brachial] Respiratory 16 18 Rate Blood Pressure 158/57 H Blood Pressure 142/105 H 158/57 H [Right Brachial artery] O2 Saturation 96 98 01/10/21 12:21 Temperature 37.3 C Heart Rate [ 64 Brachial] Respiratory 18 Rate Blood Pressure Blood Pressure 124/66 [Right Brachial artery] O2 Saturation 100 Oxygen O2 Source Room air I&O (Last 24 Hrs): Intake and Output Totals x24h 01/08/21 01/09/21 01/10/21 23:59 23:59 23:59 Intake Total 1485 1330 780 Output Total 1530 1020 950 Balance -45 310 -170 General: Alert, Oriented x3, Cooperative, No acute distress HEENT: Atraumatic Neck: Supple Lymphatic: no adenopathy Neuro: Alert, Non Focal, Oriented Times 3 Cardiovascular: Regular rate, Normal S1, Normal S2 Respiratory: Chest non-tender, No respiratory distress Abdomen: Normal bowel sounds, Soft Extremities: Normal pulses - Results Results: Laboratory Results WBC 15.3 x10^3/uL (4.8-10.8) H 01/10/21 06:21 RBC 2.72 10^6/uL (4.70-6.10) L 01/10/21 06:21 Hgb 8.5 g/dL (14.0-18.0) L 01/10/21 06:21 Hct 26.9 % (42.0-52.0) L 01/10/21 06:21 MCV 98.9 fL (80.0-94.0) H 01/10/21 06:21 MCH 31.3 pg (27.0-31.0) H 01/10/21 06:21 MCHC 31.6 g/dL (32.0-36.0) L 01/10/21 06:21 RDW 15.0 % (12.0-15.0) 01/10/21 06:21 Plt Count 149 10^3/uL (130-450) 01/10/21 06:21 MPV 9.2 fL (7.4-11.4) 01/10/21 06:21 Reticulocyte % (Auto) 3.92 % (0.5-2.3) H 01/09/21 14:25 Neut # (Auto) Not Reportable 01/10/21 06:21 Lymph # (Auto) Not Reportable 01/10/21 06:21 [place] # (Auto) Not Reportable 01/10/21 06:21 Eos # (Auto) Not Reportable 01/10/21 06:21 Baso # (Auto) Not Reportable 01/10/21 06:21 Absolute Nucleated RBC Not Reportable 01/10/21 06:21 Total Counted 100 01/10/21 06:21 Band Neuts % (Manual) 0 % (0-10) 01/10/21 06:21 Reactive Lymphs % (Man) 1 % 01/07/21 06:40 Abnorm Lymph % (Manual) 0 % 01/10/21 06:21 Nucleated RBC % Not Reportable 01/10/21 06:21 Neutrophils # (Manual) 4.0 10^3/uL (1.5-6.6) 01/10/21 06:21 Lymphocytes # (Manual) 10.4 10^3/uL (1.5-3.5) H 01/10/21 06:21 Monocytes # (Manual) 0.8 10^3/uL (0.0-1.0) 01/10/21 06:21 Eosinophils # (Manual) 0.2 10^3/uL (0-0.7) 01/10/21 06:21 Basophils # (Manual) 0.0 10^3/uL (0-0.1) 01/10/21 06:21 Differential Comment MANUAL DIFFERENTIAL 01/10/21 06:21 Manual Slide Review Indicated 01/07/21 06:40 WBC Morphology 1+ SMUDGE CELLS (NORMAL) 01/10/21 06:21 Platelet Estimate NORMAL (130-450,000) (NORMAL) 01/10/21 06:21 Platelet Morphology NORMAL APPEARANCE (NORMAL) 01/10/21 06:21 RBC Morph Micro Appear 1+ HYPOCHROMASIA (NORMAL) 01/10/21 06:21 Absolute Retic 0.107 10^6/uL (0.020-0.110) 01/09/21 14:25 Sodium 142 mmol/L (135-145) 01/10/21 06:21 Potassium 3.7 mmol/L (3.5-5.0) 01/10/21 06:21 Chloride 111 mmol/L (101-111) 01/10/21 06:21 Carbon Dioxide 21 mmol/L (21-32) 01/10/21 06:21 Anion Gap 10.0 (6-13) 01/10/21 06:21 BUN 22 mg/dL (6-20) H 01/10/21 06:21 Creatinine 1.1 mg/dL (0.6-1.2) 01/10/21 06:21 Estimated GFR (MDRD) 63 (>89) L 01/10/21 06:21 Glucose 94 mg/dL (70-100) 01/10/21 06:21 Calcium 8.1 mg/dL (8.5-10.3) L 01/10/21 06:21 Iron 26 ug/dL (45-182) L 01/09/21 14:25 TIBC 249 ug/dL (250-450) L 01/09/21 14:25 % Saturation 10 % (20-50) L 01/09/21 14:25 Transferrin 178 mg/dL (180-329) L 01/09/21 14:25 Ferritin 358.4 ng/mL (23.9-336.2) H 01/09/21 14:25 Total Bilirubin 2.0 mg/dL (0.2-1.0) H 01/10/21 06:21 Direct Bilirubin 2.0 mg/dL (0.1-0.5) H 01/05/21 05:19 AST 35 IU/L (10-42) 01/10/21 06:21 ALT 28 IU/L (10-60) 01/10/21 06:21 Alkaline Phosphatase 129 IU/L (42-121) H 01/10/21 06:21 Lactate Dehydrogenase 293 IU/L (91-225) H 01/09/21 14:25 Troponin I High Sens 49.3 ng/L (2.3-19.7) H* 01/08/21 13:45 Total Protein 4.8 g/dL (6.7-8.2) L 01/10/21 06:21 Albumin 2.7 g/dL (3.2-5.5) L 01/10/21 06:21 Globulin 2.1 g/dL (2.1-4.2) 01/10/21 06:21 Albumin/Globulin Ratio 1.3 (1.0-2.2) 01/10/21 06:21 Lipase 28 U/L (22-51) 01/03/21 11:35 Vitamin B12 779 pg/mL (180-914) 01/09/21 14:25 Urine Color YELLOW 01/03/21 21:41 Urine Clarity CLEAR (CLEAR) 01/03/21 21:41 Urine pH 7.5 PH (5.0-7.5) 01/03/21 21:41 Ur Specific [place] 1.010 (1.002-1.030) 01/03/21 21:41 Urine Protein TRACE mg/dL (NEGATIVE) 01/03/21 21:41 Urine Glucose (UA) NEGATIVE mg/dL (NEGATIVE) 01/03/21 21:41 Urine Ketones NEGATIVE mg/dL (NEGATIVE) 01/03/21 21:41 Urine Occult Blood TRACE-LYSE (NEGATIVE) 01/03/21 21:41 Urine Nitrite NEGATIVE (NEGATIVE) 01/03/21 21:41 Urine Bilirubin NEGATIVE (NEGATIVE) 01/03/21 21:41 Urine Urobilinogen 0.2 (NORMAL) E.U./dL (NORMAL) 01/03/21 21:41 Ur Leukocyte Esterase NEGATIVE (NEGATIVE) 01/03/21 21:41 Urine RBC 0-5 /HPF (0-5) 01/03/21 21:41 Urine WBC 0-3 /HPF (0-3) 01/03/21 21:41 Ur Squamous Epith Cells RARE Squamous (<= Few) 01/03/21 21:41 Urine Bacteria Rare /HPF (None Seen) 01/03/21 21:41 Urine Culture Comments NOT INDICATED 01/03/21 21:41 Nasal Adenovirus (PCR) NOT DETECTED 01/03/21 14:20 Nasal B. parapertussis DNA (PCR) NOT DETECTED 01/03/21 14:20 Nasal Coronavir 229E PCR NOT DETECTED 01/03/21 14:20 Nasal Coronavir HKU1 PCR NOT DETECTED 01/03/21 14:20 Nasal Coronavir NL63 PCR NOT DETECTED 01/03/21 14:20 Nasal Coronavir OC43 PCR NOT DETECTED 01/03/21 14:20 Nasal Enterovir/Rhinovir PCR NOT DETECTED 01/03/21 14:20 Nasal Influenza B PCR NOT DETECTED 01/03/21 14:20 Nasal Influenza A PCR NOT DETECTED 01/03/21 14:20 Nasal Parainfluen 1 PCR NOT DETECTED 01/03/21 14:20 Nasal Parainfluen 2 PCR NOT DETECTED 01/03/21 14:20 Nasal Parainfluen 3 PCR NOT DETECTED 01/03/21 14:20 Nasal Parainfluen 4 PCR NOT DETECTED 01/03/21 14:20 Nasal RSV (PCR) NOT DETECTED 01/03/21 14:20 Nasal B.pertussis DNA PCR NOT DETECTED 01/03/21 14:20 Nasal C.pneumoniae (PCR) NOT DETECTED 01/03/21 14:20 Mohit Human Metapneumo PCR NOT DETECTED 01/03/21 14:20 Nasal M.pneumoniae (PCR) NOT DETECTED 01/03/21 14:20 Nasal SARS-CoV-2 (PCR) NOT DETECTED 01/03/21 14:20 Sepsis Event Note (H) - Evaluation Current Stage of Sepsis: Resolved Possible source of Sepsis: positive: GI tract/intra-abdominal - Sepsis Criteria Sepsis Criteria: Recorded Temperature greater than 38.3C or Less than 36C, WBC count greater than 12,000 or less than 4000 ABX Reporting Has patient been on IV antibiotics over the past 48 hours?: Yes Current Medications - Current Medications Current Medications: Active Medications Acetaminophen (Acetaminophen 325 Mg Tablet) 650 mg PO Q4HR PRN PRN Reason: Pain 1 to 4 Last Admin: 01/10/21 12:44 Dose: 650 mg Documented by: Albuterol (Albuterol Neb 2.5 Mg/3 Ml) 2.5 mg INH RTQ4H PRN PRN Reason: Wheezing Albuterol/Ipratropium (Ipratropium/Albuterol 3 Ml Neb) 3 ml INH RTQID PRN PRN Reason: Shortness of Air/Wheezing Aspirin (Aspirin Chew 81 Mg Tablet) 81 mg PO DAILY [facility] Last Admin: 01/10/21 09:00 Dose: 81 mg Documented by: Atorvastatin Calcium (Atorvastatin 40 Mg Tablet) 80 mg PO QPM [facility] Last Admin: 01/09/21 21:30 Dose: 80 mg Documented by: Docusate Sodium (Docusate Sodium 250 Mg Capsule) 250 - 500 mg PO DAILY [facility] Last Admin: 01/10/21 09:00 Dose: 250 mg Documented by: Enoxaparin Sodium (Enoxaparin 40 Mg/0.4 Ml Syringe) 40 mg SUBQ DAILY [facility] Last Admin: 01/10/21 09:01 Dose: 40 mg Documented by: Ferrous Gluconate (Ferrous Gluconate 324 Mg Tablet) 324 mg PO DAILYWM [facility] Last Admin: 01/10/21 08:14 Dose: 324 mg Documented by: Hydralazine HCl (Hydralazine Inj 20 Mg/Ml Vial) 10 mg IVP Q6H PRN PRN Reason: Hypertensive Emergency Last Admin: 01/05/21 00:57 Dose: 10 mg Documented by: Piperacillin Sod/Tazobactam (Sod 3.375 gm/ Sodium Chloride) 100 mls @ 25 mls/hr IV Q8H [facility] Last Infusion: 01/10/21 14:29 Dose: Infused Documented by: Lactated Ringer's (Lr) 1,000 mls @ 83.333 mls/hr IV .Q12H [facility] Stop: 01/11/21 14:59 Last Admin: 01/10/21 14:43 Dose: 83.333 mls/hr Documented by: Metoprolol Tartrate (Metoprolol Tartrate 25 Mg Tablet) 25 mg PO BID [facility] Last Admin: 01/10/21 09:01 Dose: 25 mg Documented by: Morphine Sulfate (Morphine 2 Mg/Ml Carpuject) 2 mg IVP Q2HR PRN PRN Reason: Pain 8 to 10 Last Admin: 01/07/21 11:33 Dose: 2 mg Documented by: Multi-Ingredient Mouthwash/Gargle (Gi Cocktail 120 Ml Bottle) 30 ml PO Q4H PRN PRN Reason: Abdominal Pain Last Admin: 01/09/21 10:19 Dose: 30 ml Documented by: Multivitamins (Multivitamin Tablet) 1 tab PO DAILYWM [facility] Last Admin: 01/10/21 08:14 Dose: 1 tab Documented by: Nitroglycerin (Nitroglycerin Sl 0.4 Mg Tablet) 0.4 mg SL Q5MIN PRN PRN Reason: Chest Pain Ondansetron HCl (Ondansetron 4 Mg/2 Ml Vial) 4 mg IVP Q6HR PRN PRN Reason: Nausea / Vomiting Last Admin: 01/07/21 20:07 Dose: 4 mg Documented by: Oxycodone HCl (Oxycodone 5 Mg Tablet) 5 mg PO Q4HR PRN PRN Reason: Pain 5 to 7 Last Admin: 01/07/21 18:16 Dose: 5 mg Documented by: Pantoprazole Sodium (Pantoprazole 40 Mg Tablet) 40 mg PO QDAC [facility] Last Admin: 01/10/21 05:48 Dose: 40 mg Documented by: Polyethylene Glycol (Polyethylene Glycol 3350 17 Gm Packet) 17 gm PO DAILY [facility] Last Admin: 01/10/21 11:18 Dose: Not Given Documented by: Saccharomyces Boulardii (Saccharomyces Boulardii 250 Mg Capsule) 500 mg PO BIDWM [facility] Last Admin: 01/10/21 14:42 Dose: 500 mg Documented by: Senna (Senna 8.6 Mg Tablet) 8.6 - 17.2 mg PO DAILY [facility] Last Admin: 01/10/21 11:18 Dose: Not Given Documented by: Sodium Chloride (Sodium Chloride Flush 0.9% 10 Ml Syringe) 10 ml IVP PRN PRN PRN Reason: NEEDED PER PROVIDER ORDERS Last Admin: 01/10/21 14:32 Dose: 10 ml Documented by: Sodium Chloride (Sodium Chloride Flush 0.9% 10 Ml Syringe) 10 ml IVP 0100,09 00,1700 [facility] Last Admin: 01/10/21 11:21 Dose: Not Given Documented by: Throat Lozenges (Benzocaine/Menthol Lozenge) 1 lozenge MM Q2HR PRN PRN Reason: Throat pain Last Admin: 01/09/21 05:17 Dose: 1 lozenge Documented by: Aspirin 81 mg PO DAILY 04/29/18 B Complex W-C No.20/Folic Acid [Mynephron Capsule] 1 cap PO DAILY 04/29/18 Calcium Carbonate [Calcium] 600 mg PO DAILY 04/29/18 Metoprolol Tartrate 25 mg PO DAILY 04/29/18 Atorvastatin Calcium [Lipitor] 80 mg PO QPM 01/04/21 Multivitamin 1 tab PO DAILY 01/04/21
[2021-01-10] MEDS: SODIUM CHLORIDE FLUSH 0.9% 10 ML SYRINGE IVP PRN (14:32)
[2021-01-10] MEDS: LACTATED RINGERS 1,000 ML IV SCH (14:43)
[2021-01-10] MEDS: ATORVASTATIN 40 MG TABLET PO SCH (21:17)
[2021-01-11] MEDS: SODIUM CHLORIDE FLUSH 0.9% 10 ML SYRINGE IVP SCH ×3 (00:59→16:02)
[2021-01-11] MEDS: PIPERACILLIN/TAZOBACTAM 3.375 GM in SODIUM CHLORIDE 0.9% MINIBAG 100 ML IV SCH ×3 (01:37→17:40)
[2021-01-11] MEDS: PANTOPRAZOLE 40 MG TABLET PO SCH (05:48)
[2021-01-11 05:52] LABS: BASOPHILS % (AUTO) 0.1 %; EOSINOPHILS % (AUTO) 0.9 %; HCT - HEMATOCRIT 29.7 % (42.0-52.0); HGB - HEMOGLOBIN 9.3 g/dL (14.0-18.0); LYMPHOCYTES % (AUTO) 74.4 %; MEAN CORPUSCULAR HEMOGLOBIN 30.9 pg (27.0-31.0); MEAN CORPUSCULAR HGB CONC 31.3 g/dL (32.0-36.0); MEAN CORPUSCULAR VOLUME 98.7 fL (80.0-94.0); MEAN PLATELET VOLUME 9.5 fL (7.4-11.4); MONOCYTES % (AUTO) 3.8 %; NEUTROPHILS % (AUTO) 20.2 %; PLT - PLATELET COUNT 227 10^3/uL (130-450); RED BLOOD COUNT 3.01 10^6/uL (4.70-6.10); RED CELL DISTRIBUTION WIDTH 15.3 % (12.0-15.0); WHITE BLOOD COUNT 20.4 x10^3/uL (4.8-10.8)
[2021-01-11 06:01] LABS: ABNORMAL LYMPHS % (MANUAL) 0 %
[2021-01-11 06:03] LABS: ALBUMIN 2.8 g/dL (3.2-5.5); ALBUMIN/GLOBULIN RATIO 1.2 (1.0-2.2); BILIRUBIN,TOTAL 1.7 mg/dL (0.2-1.0); CALCIUM 8.5 mg/dL (8.5-10.3); POTASSIUM 3.5 mmol/L (3.5-5.0); TOTAL PROTEIN 5.1 g/dL (6.7-8.2)
[2021-01-11 06:29] LABS: BAND NEUTROPHILS % (MANUAL) 2 %; LYMPHOCYTES # (MANUAL) 15.7 10^3/uL (1.5-3.5); LYMPHOCYTES % (MANUAL) 77 %; NEUTROPHILS # (MANUAL) 3.7 10^3/uL (1.5-6.6)
[2021-01-11 06:30] LABS: DIFFERENTIAL COMMENT MANUAL DIFFERENTIAL; PLATELET ESTIMATE, MANUAL NORMAL (130-450,000) (NORMAL); RBC MORPHOLOGY (MULTIPLE) NORMAL APPEARANCE (NORMAL); WBC MORPHOLOGY (MULTIPLE) 1+ SMUDGE (NORMAL)
[2021-01-11] MEDS: ACETAMINOPHEN 325 MG TABLET PO PRN ×3 (06:53→21:43)
[2021-01-11] MEDS ORDERED: SIMETHICONE CHEW 80 MG TABLET PO PRN (08:41)
[2021-01-11] MEDS: LOPERAMIDE 2 MG CAPSULE PO PRN ×2 (08:53→10:54)
[2021-01-11] MEDS: SACCHAROMYCES BOULARDII 250 MG CAPSULE PO SCH ×2 (08:54→17:07)
[2021-01-11] MEDS: MULTIVITAMIN TABLET PO SCH (08:54)
[2021-01-11] MEDS: FERROUS GLUCONATE 324 MG TABLET PO SCH (08:54)
[2021-01-11] MEDS: ASPIRIN CHEW 81 MG TABLET PO SCH (08:54)
[2021-01-11] MEDS: polyethylene glycoL 3350 17 GM PACKET PO SCH (08:55)
[2021-01-11] MEDS: DOCUSATE SODIUM 250 MG CAPSULE PO SCH (08:55)
[2021-01-11] MEDS: ENOXAPARIN 40 MG/0.4 ML SYRINGE SUBQ SCH (08:55)
[2021-01-11] MEDS: SENNA 8.6 MG TABLET PO SCH (08:56)
[2021-01-11] MEDS: METOPROLOL TARTRATE 25 MG TABLET PO SCH ×2 (09:01→21:42)
--- NOTE | 2021-01-11 13:56 | PROVIDER PROGRESS NOTE ---
Assessment/Plan - Problem List (1) Acute cholecystitis Assessment/Plan: 01/11, Patient ate 50% of his breakfast, Patient had loose stool and diarrhea is improved. C. difficile testing is negative. Patient WBC is slightly elevated to 20. Patient Has no complaint of abdominal pain. We will continue antibiotics intravenous on today Then we may switch to the p.o. antibiotics on tomorrow, total 14 days. Patient had purulent gallbladder removed. Patient is on immunocompromise status, hx of CLL. Discussed with Dr. Umer Eisenberg, patient oncologist, about pt's elevated WBC and 1+Smudge cells in CBC. Dr. Umer Eisenberg recommend the patient can be discharged if pt is Afebrile. His office will do lab test on next Friday for patient, Dr. Eisenberg will see patient on next Friday (01/16) by Video. 01/10 pt report he did not have much sleep on last night, we will try closely door possible and let pt has sleep on the day. s/p of cholecystectomy day 6. WBC is 15 today, is steady trended down now. pt had gangrenous cholecystitis per surgeon's report. pt's drainage tube was removed on yesterday. Patient ate about 30% of his diet. Patient had diarrhea today. We will continue antibiotics On today, Increases dosage of probiotics, test C.Diff. Patient reported he feel better, His abdominal pain is significantly improved. Patient ate most of his breakfast, also patient had large bowel movement, Patient will walk at hallway with nurse assisting. WBC is treading down to 18. total Bili is treading down. We will continue follow-up surgeon recommendations, continue antibiotics Zosyn, add probiotics, Continue to work with PT and OT, And advance patient diet per surgeon (2)leukocytosis 01/11 WBC elevated to 20, Discussed with Dr. Umer Eisenberg, patient oncologist, about pt's elevated WBC and 1+Smudge cells in CBC. Dr. Umer Eisenberg recommend the patient can be discharged if pt is Afebrile. His office will do lab test on next Friday for patient, Dr. Eisenberg will see patient on next Friday (01/16) by Video. 01/10 WBC 15, Patient has no fever. pt has hx of CLL. there is 1+smudge cell in CBC, will continue antibiotics on today, add probiotics dosage. continue lab monitor. Patient's WBC is elevated to 51.5 then down to 43.4, 24, and 20.5, today is 18, continue trending down. pt has hx of CLL. pt report he saw his oncologist Dr. Umer Eisenberg on November 11. I called Dr. Umer Eisenberg, updated pt's medical conditions. Dr. Umer Eisenberg believe this elevated WBC is reaction to infection and surgical stress, suggest to continue lab monitor. I also consulted with our [facility] clinic 01/05 oncologist, he suggest possible reaction and suggest to do peripheral smear study to see if pt has Smudge cells. We have ordered peripheral smear study. CBC study did not show Smudge cells today. continue to monitor WBC, cont inue antibiotics at this point. (3)diarrhea 01-11 improved. pt has loose stool. C. difficile testing is negative. order Imodium as needed, gently IVF for pt. Continue laboratory and vital signs monitor. Patient report He had loose stool often after he had procedure for his Hemorrhoid. 01-10 Patient has diarrhea on today, pt is on antibiotics for s/p care for his gangrenous cholecystitis, WBC is 15 on today. increase probiotics dosage, check C.Dif, start with IVF, continue lab monitor. (4) HTN (hypertension) Conclusion/Plan: continue Metoprolol, Add hydralazine as needed. (5) Acute blood loss anemia HGB is slight increased on today. pt had quite a bit of oozing during the case and his platelets are low. Continue to monitor and transfuse if below 7, do anemia study (6) Atrial fibrillation, new onset 01/11 HR is 64, it is good control. in tele, it is converted to sinus rhythm. Continue metoprolol twice daily. 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 pt's home metoprolol dosage increase to Metoprolol twice daily, CTA yesterday showed no evidence of PE. It did display small bilateral pleural effusion, moderate emphysema, multiple, tiny, calcified nodules bilaterally (ddx are alveolar microlithiasis, chronic aspiration, or infection), and small fluid collection in gallbladder fossa which could be a hematoma or an abscess. Patient has a history of CLL, low platelets number, We will continue ba by aspirin Lovenox now. (7)sepsis resolved. Patient has no fever, WBC continue trended down, blood cultures is negative for bacteremia. Patient presented as low degree of fever, significant had elevated WBC, Cholecystitis with gross purulence. We will continue antibiotics Zosyn, IV fluids, continue laboratory and vital signs monitor closely (8) Hx of bladder cancer Conclusion/Plan: Patient has a history of bladder cancer, he reported he had appointment next week Friday To see his oncologist. Advised patient continue follow-up. Now patient can urinate and stable. will order UA (9) Hx of chronic lymphocytic leukemia Conclusion/Plan: 1020, Called patient oncologist, patient will follow up his oncologist on next Friday. 01/05, As above, I called patient's oncologist and discussed the care plan. Per patient's oncologist suggestion, we will do pathology laboratory director. oncologist believe this is a reaction to the infection and surgical stress Stable, patient may continue follow-up his oncologist. He is elevated WBC which is likely reactive from his infection, acute cholecystitis. (10) Hx of coronary artery disease Conclusion/Plan: Patient's upper abdominal pain, and bilateral shoulder pain are likely caused by his acute Cholecystitis. EKG and troponin are negative for NC. pt had recently ECHO study show reserved EF and stress test was stable. resume home aspirin, continue tele monitor and vital monitor. (11) COPD (chronic obstructive pulmonary disease) Conclusion/Plan: pt report he took inhaler PRN at home, no home oxygen needed. pt has 100% O2 sats on room air. pt is stable, no acute respiratory distress. - Current Meds Current Meds: Current Medications Generic Name Dose Route Start Last Admin Trade Name Freq PRN Reason Stop Dose Admin Acetaminophen 650 mg 01/03/21 16:49 01/11/21 06:53 Acetaminophen 325 Mg Tablet PO 650 mg Q4HR PRN Administration Pain 1 to 4 Albuterol/Ipratropium 3 ml 01/03/21 17:42 01/10/21 15:59 Ipratropium/Albuterol 3 Ml Neb INH 3 ml RTQID PRN Administration Shortness of Air/Wheezing Aspirin 81 mg 01/04/21 09:00 01/11/21 08:54 Aspirin Chew 81 Mg Tablet PO 81 mg DAILY DANA Administration Atorvastatin Calcium 80 mg 01/04/21 21:00 01/10/21 21:17 Atorvastatin 40 Mg Tablet PO 80 mg QPM DANA Administration Docusate Sodium 250 - 500 mg 01/08/21 09:00 01/11/21 08:55 Docusate Sodium 250 Mg Capsule PO Not Given DAILY [facility] Enoxaparin Sodium 40 mg 01/05/21 09:00 01/11/21 08:55 Enoxaparin 40 Mg/0.4 Ml Syringe SUBQ 40 mg DAILY DANA Administration Ferrous Gluconate 324 mg 01/09/21 19:00 01/11/21 08:54 Ferrous Gluconate 324 Mg Tablet PO 324 mg DAILYWM DANA Administration Hydralazine HCl 10 mg 01/03/21 16:59 01/05/21 00:57 Hydralazine Inj 20 Mg/Ml Vial IVP 10 mg Q6H PRN Administration Hypertensive Emergency Piperacillin Sod/Tazobactam 100 mls @ 25 mls/hr 01/03/21 18:00 01/11/21 08:53 Sod 3.375 gm/ Sodium Chloride IV 25 mls/hr Q8H ADNA Administration Lactated Ringer's 1,000 mls @ 83.333 mls/hr 01/10/21 15:00 01/11/21 08:57 Lr IV 01/11/21 14:59 Infused .Q12H DANA Infusion Loperamide HCl 2 mg 01/11/21 08:33 01/11/21 10:54 Loperamide 2 Mg Capsule PO 2 mg QID PRN Administration Diarrhea Metoprolol Tartrate 25 mg 01/05/21 21:00 01/11/21 09:01 Metoprolol Tartrate 25 Mg Tablet PO 25 mg BID DANA Administration Morphine Sulfate 2 mg 01/03/21 16:49 01/07/21 11:33 Morphine 2 Mg/Ml Carpuject IVP 2 mg Q2HR PRN Administration Pain 8 to 10 Multi-Ingredient Mouthwash/Gargle 30 ml 01/09/21 08:38 01/09/21 10:19 Gi Cocktail 120 Ml Bottle PO 30 ml Q4H PRN Administration Abdominal Pain Multivitamins 1 tab 01/05/21 08:00 01/11/21 08:54 Multivitamin Tablet PO 1 tab DAILYWM DANA Administration Ondansetron HCl 4 mg 01/03/21 16:49 01/07/21 20:07 Ondansetron 4 Mg/2 Ml Vial IVP 4 mg Q6HR PRN Administration Nausea / Vomiting Oxycodone HCl 5 mg 01/03/21 16:49 01/07/21 18:16 Oxycodone 5 Mg Tablet PO 5 mg Q4HR PRN Administration Pain 5 to 7 Pantoprazole Sodium 40 mg 01/09/21 09:00 01/11/21 05:48 Pantoprazole 40 Mg Tablet PO 40 mg QDAC DANA Administration Polyethylene Glycol 17 gm 01/05/21 09:00 01/11/21 08:55 Polyethylene Glycol 3350 17 Gm Packet PO Not Given DAILY DANA Senna 8.6 - 17.2 mg 01/08/21 09:00 01/11/21 08:56 Senna 8.6 Mg Tablet PO Not Given DAILY DANA Simethicone 80 mg 01/11/21 08:41 01/11/21 09:27 Simethicone Chew 80 Mg Tablet PO 80 mg Q6HR PRN Administration Gas Sodium Chloride 10 ml 01/03/21 16:49 01/10/21 14:32 Sodium Chloride Flush 0.9% 10 Ml Syringe IVP 10 ml PRN PRN Administration NEEDED PER PROVIDER ORDERS Sodium Chloride 10 ml 01/03/21 17:00 01/11/21 08:53 Sodium Chloride Flush 0.9% 10 Ml Syringe IVP 10 ml 0100,0900,1700 DANA Administration Throat Lozenges 1 lozenge 01/09/21 00:11 01/09/21 05:17 Benzocaine/Menthol Lozenge MM 1 lozenge Q2HR PRN Administration Throat pain - Lab Result Fish Bone Diagrams: 01/11/21 05:39 01/11/21 05:39 - Additional Planning My Orders: My Active Orders 01/10/21 15:00 Lactated Ringers [Lr] 1,000 ml IV 83.333 mls/hr 01/11/21 Home Health Referral [CONS] Routine 01/11/21 08:33 Loperamide [Imodium] 2 mg PO QID PRN 01/11/21 08:41 Simethicone [Mylicon] 80 mg PO Q6HR PRN 01/11/21 17:00 Saccharomyces Boulardii [Florastor] 250 mg PO BIDWM Subjective - Subjective Patient Reports: Feeling Better Objective Vital Signs: Vital Signs - 24 hr 01/10/21 01/10/21 01/10/21 15:59 16:08 21:00 Temperature 36.5 C 37.4 C Heart Rate 70 Heart Rate [ 55 L Brachial] Heart Rate [ 52 L Monitoring electrodes] Respiratory 12 18 16 Rate Blood Pressure Blood Pressure 125/54 L 129/51 L [Right Brachial artery] O2 Saturation 99 96 01/10/21 01/11/21 01/11/21 23:35 05:00 08:03 Temperature 37.3 C 37.1 C 36.6 C Heart Rate Heart Rate [ 55 L 53 L 63 Brachial] Heart Rate [ Monitoring electrodes] Respiratory 18 18 19 Rate Blood Pressure Blood Pressure 134/63 H 156/63 H 144/59 H [Right Brachial artery] O2 Saturation 97 98 99 01/11/21 01/11/21 09:01 12:30 Temperature 36.3 C L Heart Rate Heart Rate [ 64 Brachial] Heart Rate [ Monitoring electrodes] Respiratory 18 Rate Blood Pressure 127/62 Blood Pressure 131/58 H [Right Brachial artery] O2 Saturation 98 Oxygen O2 Source Room air I&O (Last 24 Hrs): Intake and Output Totals x24h 01/09/21 01/10/21 01/11/21 23:59 23:59 23:59 Intake Total 1330 1345 1800.000 Output Total 1020 1150 275 Balance 145 728 0966.000 General: Alert, Oriented x3, Cooperative, No acute distress HEENT: Atraumatic Neck: Supple Lymphatic: no adenopathy Neuro: Alert, Non Focal, Oriented Times 3 Cardiovascular: Regular rate, Normal S1, Normal S2 Respiratory: Chest non-tender, No respiratory distress Abdomen: Normal bowel sounds, Soft Extremities: Normal pulses - Results Results: Laboratory Results WBC 20.4 x10^3/uL (4.8-10.8) H 01/11/21 05:39 RBC 3.01 10^6/uL (4.70-6.10) L 01/11/21 05:39 Hgb 9.3 g/dL (14.0-18.0) L 01/11/21 05:39 Hct 29.7 % (42.0-52.0) L 01/11/21 05:39 MCV 98.7 fL (80.0-94.0) H 01/11/21 05:39 MCH 30.9 pg (27.0-31.0) 01/11/21 05:39 MCHC 31.3 g/dL (32.0-36.0) L 01/11/21 05:39 RDW 15.3 % (12.0-15.0) H 01/11/21 05:39 Plt Count 227 10^3/uL (130-450) 01/11/21 05:39 MPV 9.5 fL (7.4-11.4) 01/11/21 05:39 Reticulocyte % (Auto) 3.92 % (0.5-2.3) H 01/09/21 14:25 Neut # (Auto) Not Reportable 01/11/21 05:39 Lymph # (Auto) Not Reportable 01/11/21 05:39 [place] # (Auto) Not Reportable 01/11/21 05:39 Eos # (Auto) Not Reportable 01/11/21 05:39 Baso # (Auto) Not Reportable 01/11/21 05:39 Absolute Nucleated RBC Not Reportable 01/11/21 05:39 Total Counted 100 01/11/21 05:39 Band Neuts % (Manual) 2 % (0-10) 01/11/21 05:39 Reactive Lymphs % (Man) 1 % 01/07/21 06:40 Abnorm Lymph % (Manual) 0 % 01/11/21 05:39 Nucleated RBC % Not Reportable 01/11/21 05:39 Neutrophils # (Manual) 3.7 10^3/uL (1.5-6.6) 01/11/21 05:39 Lymphocytes # (Manual) 15.7 10^3/uL (1.5-3.5) H 01/11/21 05:39 Monocytes # (Manual) 1.0 10^3/uL (0.0-1.0) 01/11/21 05:39 Eosinophils # (Manual) 0.0 10^3/uL (0-0.7) 01/11/21 05:39 Basophils # (Manual) 0.0 10^3/uL (0-0.1) 01/11/21 05:39 Differential Comment MANUAL DIFFERENTIAL 01/11/21 05:39 Manual Slide Review Indicated 01/07/21 06:40 WBC Morphology 1+ SMUDGE (NORMAL) 01/11/21 05:39 Platelet Estimate NORMAL (130-450,000) (NORMAL) 01/11/21 05:39 Platelet Morphology NORMAL APPEARANCE (NORMAL) 01/10/21 06:21 RBC Morph Micro Appear NORMAL APPEARANCE (NORMAL) 01/11/21 05:39 Absolute Retic 0.107 10^6/uL (0.020-0.110) 01/09/21 14:25 Sodium 144 mmol/L (135-145) 01/11/21 05:39 Potassium 3.5 mmol/L (3.5-5.0) 01/11/21 05:39 Chloride 110 mmol/L (101-111) 01/11/21 05:39 Carbon Dioxide 24 mmol/L (21-32) 01/11/21 05:39 Anion Gap 10.0 (6-13) 01/11/21 05:39 BUN 20 mg/dL (6-20) 01/11/21 05:39 Creatinine 1.0 mg/dL (0.6-1.2) 01/11/21 05:39 Estimated GFR (MDRD) 71 (>89) L 01/11/21 05:39 Glucose 109 mg/dL (70-100) H 01/11/21 05:39 Calcium 8.5 mg/dL (8.5-10.3) 01/11/21 05:39 Iron 26 ug/dL (45-182) L 01/09/21 14:25 TIBC 249 ug/dL (250-450) L 01/09/21 14:25 % Saturation 10 % (20-50) L 01/09/21 14:25 Transferrin 178 mg/dL (180-329) L 01/09/21 14:25 Ferritin 358.4 ng/mL (23.9-336.2) H 01/09/21 14:25 Total Bilirubin 1.7 mg/dL (0.2-1.0) H 01/11/21 05:39 Direct Bilirubin 2.0 mg/dL (0.1-0.5) H 01/05/21 05:19 AST 39 IU/L (10-42) 01/11/21 05:39 ALT 34 IU/L (10-60) 01/11/21 05:39 Alkaline Phosphatase 154 IU/L (42-121) H 01/11/21 05:39 Lactate Dehydrogenase 293 IU/L (91-225) H 01/09/21 14:25 Troponin I High Sens 49.3 ng/L (2.3-19.7) H* 01/08/21 13:45 Total Protein 5.1 g/dL (6.7-8.2) L 01/11/21 05:39 Albumin 2.8 g/dL (3.2-5.5) L 01/11/21 05:39 Globulin 2.3 g/dL (2.1-4.2) 01/11/21 05:39 Albumin/Globulin Ratio 1.2 (1.0-2.2) 01/11/21 05:39 Lipase 28 U/L (22-51) 01/03/21 11:35 Vitamin B12 779 pg/mL (180-914) 01/09/21 14:25 Urine Color YELLOW 01/03/21 21:41 Urine Clarity CLEAR (CLEAR) 01/03/21 21:41 Urine pH 7.5 PH (5.0-7.5) 01/03/21 21:41 Ur Specific [place] 1.010 (1.002-1.030) 01/03/21 21:41 Urine Protein TRACE mg/dL (NEGATIVE) 01/03/21 21:41 Urine Glucose (UA) NEGATIVE mg/dL (NEGATIVE) 01/03/21 21:41 Urine Ketones NEGATIVE mg/dL (NEGATIVE) 01/03/21 21:41 Urine Occult Blood TRACE-LYSE (NEGATIVE) 01/03/21 21:41 Urine Nitrite NEGATIVE (NEGATIVE) 01/03/21 21:41 Urine Bilirubin NEGATIVE (NEGATIVE) 01/03/21 21:41 Urine Urobilinogen 0.2 (NORMAL) E.U./dL (NORMAL) 01/03/21 21:41 Ur Leukocyte Esterase NEGATIVE (NEGATIVE) 01/03/21 21:41 Urine RBC 0-5 /HPF (0-5) 01/03/21 21:41 Urine WBC 0-3 /HPF (0-3) 01/03/21 21:41 Ur Squamous Epith Cells RARE Squamous (<= Few) 01/03/21 21:41 Urine Bacteria Rare /HPF (None Seen) 01/03/21 21:41 Urine Culture Comments NOT INDICATED 01/03/21 21:41 Nasal Adenovirus (PCR) NOT DETECTED 01/03/21 14:20 Nasal B. parapertussis DNA (PCR) NOT DETECTED 01/03/21 14:20 Nasal Coronavir 229E PCR NOT DETECTED 01/03/21 14:20 Nasal Coronavir HKU1 PCR NOT DETECTED 01/03/21 14:20 Nasal Coronavir NL63 PCR NOT DETECTED 01/03/21 14:20 Nasal Coronavir OC43 PCR NOT DETECTED 01/03/21 14:20 Nasal Enterovir/Rhinovir PCR NOT DETECTED 01/03/21 14:20 Nasal Influenza B PCR NOT DETECTED 01/03/21 14:20 Nasal Influenza A PCR NOT DETECTED 01/03/21 14:20 Nasal Parainfluen 1 PCR NOT DETECTED 01/03/21 14:20 Nasal Parainfluen 2 PCR NOT DETECTED 01/03/21 14:20 Nasal Parainfluen 3 PCR NOT DETECTED 01/03/21 14:20 Nasal Parainfluen 4 PCR NOT DETECTED 01/03/21 14:20 Nasal RSV (PCR) NOT DETECTED 01/03/21 14:20 Nasal B.pertussis DNA PCR NOT DETECTED 01/03/21 14:20 Nasal C.pneumoniae (PCR) NOT DETECTED 01/03/21 14:20 Mohit Human Metapneumo PCR NOT DETECTED 01/03/21 14:20 Nasal M.pneumoniae (PCR) NOT DETECTED 01/03/21 14:20 Nasal SARS-CoV-2 (PCR) NOT DETECTED 01/03/21 14:20 Stl C. diff Tox B Gene NEGATIVE (NEGATIVE) 01/10/21 14:45 Sepsis Event Note (H) - Evaluation Current Stage of Sepsis: Resolved Possible source of Sepsis: positive: GI tract/intra-abdominal - Sepsis Criteria Sepsis Criteria: Recorded Temperature greater than 38.3C or Less than 36C, WBC count greater than 12,000 or less than 4000 ABX Reporting Has patient been on IV antibiotics over the past 48 hours?: Yes Current Medications - Current Medications Current Medications: Active Medications Acetaminophen (Acetaminophen 325 Mg Tablet) 650 mg PO Q4HR PRN PRN Reason: Pain 1 to 4 Last Admin: 01/11/21 06:53 Dose: 650 mg Documented by: Albuterol (Albuterol Neb 2.5 Mg/3 Ml) 2.5 mg INH RTQ4H PRN PRN Reason: Wheezing Albuterol/Ipratropium (Ipratropium/Albuterol 3 Ml Neb) 3 ml INH RTQID PRN PRN Reason: Shortness of Air/Wheezing Last Admin: 01/10/21 15:59 Dose: 3 ml Documented by: Aspirin (Aspirin Chew 81 Mg Tablet) 81 mg PO DAILY [facility] Last Admin: 01/11/21 08:54 Dose: 81 mg Documented by: Atorvastatin Calcium (Atorvastatin 40 Mg Tablet) 80 mg PO QPM [facility] Last Admin: 01/10/21 21:17 Dose: 80 mg Documented by: Docusate Sodium (Docusate Sodium 250 Mg Capsule) 250 - 500 mg PO DAILY [facility] Last Admin: 01/11/21 08:55 Dose: Not Given Documented by: Enoxaparin Sodium (Enoxaparin 40 Mg/0.4 Ml Syringe) 40 mg SUBQ DAILY [facility] Last Admin: 01/11/21 08:55 Dose: 40 mg Documented by: Ferrous Gluconate (Ferrous Gluconate 324 Mg Tablet) 324 mg PO DAILYWM [facility] Last Admin: 01/11/21 08:54 Dose: 324 mg Documented by: Hydralazine HCl (Hydralazine Inj 20 Mg/Ml Vial) 10 mg IVP Q6H PRN PRN Reason: Hypertensive Emergency Last Admin: 01/05/21 00:57 Dose: 10 mg Documented by: Piperacillin Sod/Tazobactam (Sod 3.375 gm/ Sodium Chloride) 100 mls @ 25 mls/hr IV Q8H [facility] Last Infusion: 01/11/21 13:51 Dose: Infused Documented by: Lactated Ringer's (Lr) 1,000 mls @ 83.333 mls/hr IV .Q12H [facility] Stop: 01/11/21 14:59 Last Infusion: 01/11/21 13:50 Dose: Infused Documented by: Loperamide HCl (Loperamide 2 Mg Capsule) 2 mg PO QID PRN PRN Reason: Diarrhea Last Admin: 01/11/21 10:54 Dose: 2 mg Documented by: Metoprolol Tartrate (Metoprolol Tartrate 25 Mg Tablet) 25 mg PO BID [facility] Last Admin: 01/11/21 09:01 Dose: 25 mg Documented by: Morphine Sulfate (Morphine 2 Mg/Ml Carpuject) 2 mg IVP Q2HR PRN PRN Reason: Pain 8 to 10 Last Admin: 01/07/21 11:33 Dose: 2 mg Documented by: Multi-Ingredient Mouthwash/Gargle (Gi Cocktail 120 Ml Bottle) 30 ml PO Q4H PRN PRN Reason: Abdominal Pain Last Admin: 01/09/21 10:19 Dose: 30 ml Documented by: Multivitamins (Multivitamin Tablet) 1 tab PO DAILYWM [facility] Last Admin: 01/11/21 08:54 Dose: 1 tab Documented by: Nitroglycerin (Nitroglycerin Sl 0.4 Mg Tablet) 0.4 mg SL Q5MIN PRN PRN Reason: Chest Pain Ondansetron HCl (Ondansetron 4 Mg/2 Ml Vial) 4 mg IVP Q6HR PRN PRN Reason: Nausea / Vomiting Last Admin: 01/07/21 20:07 Dose: 4 mg Documented by: Oxycodone HCl (Oxycodone 5 Mg Tablet) 5 mg PO Q4HR PRN PRN Reason: Pain 5 to 7 Last Admin: 01/07/21 18:16 Dose: 5 mg Documented by: Pantoprazole Sodium (Pantoprazole 40 Mg Tablet) 40 mg PO QDAC [facility] Last Admin: 01/11/21 05:48 Dose: 40 mg Documented by: Polyethylene Glycol (Polyethylene Glycol 3350 17 Gm Packet) 17 gm PO DAILY [facility] Last Admin: 01/11/21 08:55 Dose: Not Given Documented by: Saccharomyces Boulardii (Saccharomyces Boulardii 250 Mg Capsule) 250 mg PO BIDWM [facility] Senna (Senna 8.6 Mg Tablet) 8.6 - 17.2 mg PO DAILY [facility] Last Admin: 01/11/21 08:56 Dose: Not Given Documented by: Simethicone (Simethicone Chew 80 Mg Tablet) 80 mg PO Q6HR PRN PRN Reason: Gas Last Admin: 01/11/21 09:27 Dose: 80 mg Documented by: Sodium Chloride (Sodium Chloride Flush 0.9% 10 Ml Syringe) 10 ml IVP PRN PRN PRN Reason: NEEDED PER PROVIDER ORDERS Last Admin: 01/10/21 14:32 Dose: 10 ml Documented by: Sodium Chloride (Sodium Chloride Flush 0.9% 10 Ml Syringe) 10 ml IVP 0100,0900,1700 [facility] Last Admin: 01/11/21 08:53 Dose: 10 ml Documented by: Throat Lozenges (Benzocaine/Menthol Lozenge) 1 lozenge MM Q2HR PRN PRN Reason: Throat pain Last Admin: 01/09/21 05:17 Dose: 1 lozenge Documented by: Aspirin 81 mg PO DAILY 04/29/18 B Complex W-C No.20/Folic Acid [Mynephron Capsule] 1 cap PO DAILY 04/29/18 Calcium Carbonate [Calcium] 600 mg PO DAILY 04/29/18 Metoprolol Tartrate 25 mg PO DAILY 04/29/18 Atorvastatin Calcium [Lipitor] 80 mg PO QPM 01/04/21 Multivitamin 1 tab PO DAILY 01/04/21
[2021-01-11] MEDS: LACTATED RINGERS 1,000 ML IV SCH (16:02)
[2021-01-11] MEDS: ATORVASTATIN 40 MG TABLET PO SCH (21:42)
[2021-01-12] MEDS: SODIUM CHLORIDE FLUSH 0.9% 10 ML SYRINGE IVP SCH (00:01)
[2021-01-12] MEDS: BENZOCAINE/MENTHOL LOZENGE MM PRN ×3 (00:24→06:41)
[2021-01-12] MEDS: PIPERACILLIN/TAZOBACTAM 3.375 GM in SODIUM CHLORIDE 0.9% MINIBAG 100 ML IV SCH (02:44)
[2021-01-12] MEDS: SODIUM CHLORIDE FLUSH 0.9% 10 ML SYRINGE IVP PRN ×2 (02:45→06:46)
[2021-01-12] MEDS: LOPERAMIDE 2 MG CAPSULE PO PRN (03:05)
[2021-01-12 05:46] LABS: BASOPHILS % (AUTO) 0.3 %; EOSINOPHILS % (AUTO) 0.8 %; HCT - HEMATOCRIT 30.3 % (42.0-52.0); HGB - HEMOGLOBIN 9.4 g/dL (14.0-18.0); LYMPHOCYTES % (AUTO) 72.1 %; MEAN CORPUSCULAR HEMOGLOBIN 30.7 pg (27.0-31.0); MEAN PLATELET VOLUME 9.4 fL (7.4-11.4); MONOCYTES % (AUTO) 4.3 %; NEUTROPHILS % (AUTO) 21.7 %; PLT - PLATELET COUNT 256 10^3/uL (130-450); RED BLOOD COUNT 3.06 10^6/uL (4.70-6.10); RED CELL DISTRIBUTION WIDTH 15.6 % (12.0-15.0); WHITE BLOOD COUNT 23.7 x10^3/uL (4.8-10.8)
[2021-01-12 05:50] LABS: ABNORMAL LYMPHS % (MANUAL) 0 %
[2021-01-12 05:57] LABS: ALBUMIN 2.8 g/dL (3.2-5.5); ALBUMIN/GLOBULIN RATIO 1.2 (1.0-2.2); BILIRUBIN,TOTAL 2.1 mg/dL (0.2-1.0); CALCIUM 8.3 mg/dL (8.5-10.3); POTASSIUM 3.6 mmol/L (3.5-5.0); TOTAL PROTEIN 5.2 g/dL (6.7-8.2)
[2021-01-12] MEDS: PANTOPRAZOLE 40 MG TABLET PO SCH (06:15)
[2021-01-12 06:28] LABS: BAND NEUTROPHILS % (MANUAL) 1 %; LYMPHOCYTES # (MANUAL) 17.5 10^3/uL (1.5-3.5); LYMPHOCYTES % (MANUAL) 74 %; MONOCYTES # (MANUAL) 1.2 10^3/uL (0.0-1.0)
[2021-01-12 06:29] LABS: PLATELET ESTIMATE, MANUAL NORMAL (130-450,000) (NORMAL); PLATELET MORPHOLOGY NORMAL APPEARANCE (NORMAL); RBC MORPHOLOGY (MULTIPLE) NORMAL APPEARANCE (NORMAL); WBC MORPHOLOGY (MULTIPLE) 1+ SMUDGE CELLS (NORMAL)
[2021-01-12 06:30] LABS: DIFFERENTIAL COMMENT MANUAL DIFFERENTIAL
[2021-01-12] MEDS ORDERED: metroNIDAZOLE 250 MG TABLET PO SCH ×2 (08:00→08:08)
[2021-01-12] MEDS ORDERED: CIPROFLOXACIN 250 MG TABLET PO SCH ×2 (09:00)
[2021-01-12] MEDS: METOPROLOL TARTRATE 25 MG TABLET PO SCH (10:54)
[2021-01-12] MEDS: DOCUSATE SODIUM 250 MG CAPSULE PO SCH (10:58)
[2021-01-12] MEDS: SENNA 8.6 MG TABLET PO SCH (10:59)
[2021-01-12] MEDS: polyethylene glycoL 3350 17 GM PACKET PO SCH (10:59)
[2021-01-12] MEDS: FERROUS GLUCONATE 324 MG TABLET PO SCH (11:00)
[2021-01-12] MEDS: MULTIVITAMIN TABLET PO SCH (11:02)
[2021-01-12] MEDS: SACCHAROMYCES BOULARDII 250 MG CAPSULE PO SCH (11:07)
[2021-01-12] MEDS: ENOXAPARIN 40 MG/0.4 ML SYRINGE SUBQ SCH (11:07)
[2021-01-12] MEDS: ASPIRIN CHEW 81 MG TABLET PO SCH (11:11)
--- NOTE | 2021-01-12 11:38 | Discharge Plan ---
Discharge Plan Problem Reviewed?: Yes Disposition: Home, Self Care Condition: Stable Prescriptions: Simethicone [Mylicon] 80 mg PO Q6HR PRN #20 tablet PRN Reason: Gas Ciprofloxacin [Cipro] 500 mg PO BID 5 Days #20 tablet Ferrous Gluconate [Fergon] 324 mg PO DAILYWM #30 tablet metroNIDAZOLE [Flagyl] 500 mg PO Q8H 5 Days #30 tablet Saccharomyces Boulardii [Florastor] 250 mg PO BIDWM 5 Days #10 cap Loperamide [Imodium] 2 mg PO QID PRN #20 cap PRN Reason: Diarrhea Metoprolol Tartrate [Lopressor] 25 mg PO BID #60 tablet Pantoprazole [Protonix] 40 mg PO QDAC #30 tablet Diet: Regular Activity Restrictions: Activity as Tolerated Shower Restrictions: No (fall precaution) Instruction Topics: Pantoprazole tablets, Metronidazole tablets or capsules, Loperamide Simethicone oral tablets, Ciprofloxacin tablets, Metoprolol tablets, Diarrhea, Cholecystectomy Health Concerns: cholecystectomy, CLL, diarrhea Plan of Treatment: You had abdominal pain. you were found to have severe gallbladder infection. you had cholecystectomy and your gallbladder removal. You are prescribed Cipro and Flagyl to finish the treatment course. You have elevated WBC cells in your blood work. Your oncologist will have blood work for you on Friday, and will see you on Friday, please followup with the appointment. Your diarrhea has better controlled now. Imodium is prescribed for you as needed. Your heart rate is controlled now, Your home metoprolol dosage increases to 2 times per day. You may follow-up with your cyber incident responder as outpatient. Care Goals: Stabilization and improvement of your medical conditions Assessment: Discussed the care plan with you and your at the bedside, Answered your questions, you understood. Additional Instructions or Follow Up instructions: You may follow-up with your primary care in 1 week, Follow-up with your on cologist on next Friday, And follow-up with your cyber incident responder as outpatient. Should you have Fever, abdominal pain, Uncontrolled diarrhea, or your symptoms return or worsen, you may present ER or call 911 for help. Follow-Up Care: Outpatient Rehab - PT, Outpatient Rehab - ST No Smoking: If you smoke, Please STOP! Call for help.
--- NOTE | 2021-01-12 12:10 | DISCHARGE SUMMARY ---
Discharge Summary Admit Date: 01/03/21 Discharge Date: 01/12/21 Discharging Provider: Douglas Pina Condition at Discharge: Stable Discharge Disposition: 01 Home, Self Care Discharge Facility Name: home - DIAGNOSES Discharge Diagnoses with Status of Each Condition: (1) Acute cholecystitis purulent/gangrenous gallbladder was removed by surgeon. pt was treated antibiotics. after treatment, pt tolerated diet and had bowel movements. pt also had pilot boat deckhand consult. pt has hx of CLL and Immunocompromised, and elevated WBC. pt is prescribed antibiotics to finish the treatment course. (2)leukocytosis pt has WBC at 23.6 and 1+smudge cells. I called pt's oncologist, he will pt on next Friday (01/16) and will have blood work on Friday. per his oncologist's advise if pt has no fever, pt can be d/c. pt has no fever. he tolerate diet and had bowel movement. (3)diarrhea loose stool as pt's baseline. pt is prescribed Imodium as needed. Patient's C. difficile test is negative. (4) HTN (hypertension) Stable, Resume home medication (5) Acute blood loss anemia HGB Is stable, hemoglobin is 9.4 on today. Patient is prescribed iron. (6) Atrial fibrillation, new onset Patient had twice of a fibrillation with RVR in the hospital, after treated, his atrial fibrillation was converted to sinus rhythm. Patient's home metoprolol i ncreases to twice daily. Patient may resume home aspirin. Patient may follow-up with his medical communication specialist to continue management (7)sepsis resolved. resolved. Patient was admitted with low degree of fever, elevated WBC with Acute cholecystitis. Patient has no more fever, blood cultures is negative for bacteremia. pt is Hemodynamically stable. Patient had elevated WBC today he has WBC 23.6, CBC show 1+smudge cells which is concerned from pt's hx of CLL. pt will see his oncologist on Friday (01/16/21). (8) Hx of bladder cancer stable, pt pt may followup with his oncologist as out-pt (9) Hx of chronic lymphocytic leukemia as above, pt state he will followup with his oncologist on Friday. He will have blood work on Friday. Pt has no fever. Pt tolerated diet. (10) Hx of coronary artery disease stable, Patient may follow-up with his medical communication specialist as outpatient (11) COPD (chronic obstructive pulmonary disease) Stable. - HPI History of Present Illness: This is an 86-year-old male with A past medical history significant for hypertension, COPD, angina, CAD, Bladder cancer and CLL, who presents to the emergency department complaint of right upper epigastric abdominal pain. Pt report his pain located at right upper quadrant, pain sometimes was up to his stomach, up to his chest and even up to his bilateral shoulders, also sometimes pain hurts down by his bladder. His upper epigastric pain was not change with nitroglycerin. He denies fever, chill, nausea, vomiting, or constipation. He report he had small diarrhea on yesterday. CT and ultrasound of abdomen concern acute cholecystitis. Pt report his Detonator Assembler Dr. Espinosa made clear for him to have operation for his bladder cancer a few months ago. Pt had recent ECHO study which show EF was reserved at 54%. stress test on this year show stable. Discussed the case with surgeon, Dr. Nowak, she plan to have surgery on this afternoon for pt. Routine laboratory tests show patient had elevated WBC 15.5. Troponin is 12.4, and negative for ID, EKG did not show ischemic change. Patient is afebrile, heart rate is 54, otherwise patient is hemodynamic stable. ER already had Zosyn for pt. Discussed the care goal with the patient, patient hope to have full code. - HOSPITAL COURSE Hospital Course: Patient was admitted for Right quadrant abdominal pain, Low degree of fever. Patient was found to have acute cholecystitis. Patient was consulted with the surgeon. Patient had cholecystectomy done by surgeon. Per surgeon. pt was found to have purulent/gangrenous gallbladder. Drain was plugged and unplugged by surgeon, and more 1 liter of blood fluid came out 01/07. Pt developed significantly elevated WBC then trended down. Pt was treated with antibiotics. Patient also develop twice of atrial fibrillation with RVR. Patient was treated with intravenous metoprolol and Cardizem. Then patient's a fibrillation was converted into sinus rhythm. Patient's home metoprolol increased to bid. Then patient tolerated diet and has bowel movements. Also I called patient oncologist for concerning of patient elevated WBC and smudge cell. Patient's oncologist will see patient on next Friday. - ALLERGIES Allergies/Adverse Reactions: Allergies Allergy/AdvReac Type Severity Reaction Status Date / Time No Known Drug Allergies Allergy Verified 01/03/21 11:19 - MEDICATIONS Home Medications: Ambulatory Orders Medication Instructions Recorded Confirmed Aspirin 81 mg PO DAILY 04/29/18 01/04/21 B Complex W-C No.20/Folic Acid 1 cap PO DAILY 04/29/18 01/04/21 [Mynephron Capsule] Calcium Carbonate [Calcium] 600 mg PO DAILY 04/29/18 01/04/21 Nitroglycerin 0.4 mg SL Q5MIN PRN #40 tab.subl 04/29/18 01/04/21 Atorvastatin Calcium [Lipitor] 80 mg PO QPM 01/04/21 01/04/21 Multivitamin 1 tab PO DAILY 01/04/21 01/04/21 Ciprofloxacin [Cipro] 500 mg PO BID 5 Days #20 tablet 01/12/21 Ferrous Gluconate [Fergon] 324 mg PO DAILYWM #30 tablet 01/12/21 Loperamide [Imodium] 2 mg PO QID PRN #20 cap 01/12/21 Metoprolol Tartrate [Lopressor] 25 mg PO BID #60 tablet 01/12/21 Pantoprazole [Protonix] 40 mg PO QDAC #30 tablet 01/12/21 Saccharomyces Boulardii [Florastor] 250 mg PO BIDWM 5 Days #10 cap 01/12/21 Simethicone [Mylicon] 80 mg PO Q6HR PRN #20 tablet 01/12/21 metroNIDAZOLE [Flagyl] 500 mg PO Q8H 5 Days #30 tablet 01/12/21 - PHYSICAL EXAM AT DISCHARGE General Appearance: positive: No acute distress, Alert. negative: Lethargic Eyes Bilateral: positive: Normal inspection, PERRL, No lid inflammation ENT: positive: ENT inspection nml, No signs of dehydration. negative: Purulent nasal drainage Neck: positive: Nml inspection, Trachea midline. negative: Thyromegaly, Trachea l deviation Respiratory: positive: Chest non-tender, No respiratory distress. negative: Wheezes Cardiovascular: positive: Regular rate & rhythm, No murmur. negative: Tachycardia, Bradycardia, Systolic murmur, Diastolic murmur Peripheral Pulses: positive: 2+ Abdomen: positive: Non-tender, Nml bowel sounds, No distention. negative: Tenderness Back: positive: Nml inspection Skin: positive: Color nml, Warm, Dry. negative: Cyanosis Extremities: positive: Non-tender, Full ROM, Nml appearance, No pedal edema Neurologic/Psychiatric: positive: Oriented x3, Motor nml, Sensation nml, Mood/affect nml. negative: Weakness, Sensory loss, Facial droop, Slurred/abnml speech, Depressed mood/affect - LABS Result Diagrams: 01/12/21 05:22 01/12/21 05:22 - SEPSIS Current Stage of Sepsis: Resolved Possible source of Sepsis: GI tract/intra-abdominal Sepsis Criteria: Recorded Temperature greater than 38.3C or Less than 36C, WBC count greater than 12,000 or less than 4000 - FOLLOW UP Follow Up: You had abdominal pain. you were found to have severe gallbladder infection. you had cholecystectomy and your gallbladder removal. You are prescribed Cipro and Flagyl to finish the treatment course. You have elevated WBC cells in your blood work. Your oncologist will have blood work for you on Friday, and will see you on Friday, please followup with the appointment. Your diarrhea has better controlled now. Imodium is prescribed for you as needed. Your heart rate is controlled now, Your home metoprolol dosage increases to 2 times per day. You may follow-up with your medical communication specialist as outpatient. You may follow-up with your primary care in 1 week, Follow-up with your oncologist on next Friday, And follow-up with your medical communication specialist as outpatient. Should you have Fever, abdominal pain, Uncontrolled diarrhea, or your symptoms return or worsen, you may present ER or call 911 for help. - TIME SPENT Time Spent in Discharge (Minutes): 30
[2021-01-12 13:39] VITALS: BP 122/91
== END 2021-01-12 13:30 | disposition home or self-care (01) | DRG 854 ==
LOC: ED 11:13 → SDS 16:25 → MS2 16:49
PROVIDERS: ADMIT Nurse Practitioner Gerontology; ATTEND Nurse Practitioner Gerontology
PROC: 0FT44ZZ Resection of Gallbladder, Percutaneous Endoscopic Approach (ICD-10-PCS; principal; 2021-01-03 16:30)
DX: K81.0 Acute cholecystitis (principal); A41.9 Sepsis, unspecified organism; Z20.822 Contact with and (suspected) exposure to COVID-19; K80.00 Calculus of gallbladder with acute cholecystitis without obstruction; D62 Acute posthemorrhagic anemia; C91.11 Chronic lymphocytic leukemia of B-cell type in remission; K82.1 Hydrops of gallbladder; K82.A1 Gangrene of gallbladder in cholecystitis; D72.829 Elevated white blood cell count, unspecified; R41.89 Other symptoms and signs involving cognitive functions and awareness; I10 Essential (primary) hypertension; J43.9 Emphysema, unspecified; I48.91 Unspecified atrial fibrillation; I25.119 Atherosclerotic heart disease of native coronary artery with unspecified angina pectoris; R19.7 Diarrhea, unspecified; Z95.5 Presence of coronary angioplasty implant and graft; Z79.899 Other long term (current) drug therapy; Z79.82 Long term (current) use of aspirin; Z85.51 Personal history of malignant neoplasm of bladder; Z87.891 Personal history of nicotine dependence
CPT/HCPCS: 36415; 71045; 71275; 74177; 76705; 80053; 81001; 82248; 82607; 82728; 83540; 83615; 83690; 84466; 84484; 85025; 85045; 87040; 87493; 87631; 92610; 93005; 94640; 96365; 96366; 97110; 97116; 97162; 97165; 97530; 99285; A9270; J1650; J7120; Q9967; 0202U; 87086

== ENCOUNTER 2021-01-15 10:27 | Outpatient (CLI) | payer MEDICARE, OTHER ==
[2021-01-15 15:10] LABS: ABSOLUTE RETICS # AUTO 0.162 10^6/uL (0.020-0.110); BASOPHILS # (AUTO) 0.1 10^3/uL (0.0-0.1); BASOPHILS % (AUTO) 0.2 %; EOSINOPHILS # (AUTO) 0.1 10^3/uL (0.0-0.7); EOSINOPHILS % (AUTO) 0.3 %; HCT - HEMATOCRIT 32.4 % (42.0-52.0); LYMPHOCYTES % (AUTO) 61.9 %; MEAN CORPUSCULAR HEMOGLOBIN 30.5 pg (27.0-31.0); MEAN CORPUSCULAR HGB CONC 30.9 g/dL (32.0-36.0); MEAN CORPUSCULAR VOLUME 98.8 fL (80.0-94.0); MEAN PLATELET VOLUME 9.4 fL (7.4-11.4); MONOCYTES # (AUTO) 2.5 10^3/uL (0.0-1.0); MONOCYTES % (AUTO) 7.2 %; NEUTROPHILS # (AUTO) 10.3 10^3/uL (1.5-6.6); NEUTROPHILS % (AUTO) 29.1 %; PLT - PLATELET COUNT 441 10^3/uL (130-450); RED BLOOD COUNT 3.28 10^6/uL (4.70-6.10); RED CELL DISTRIBUTION WIDTH 15.6 % (12.0-15.0); RETICULOCYTE COUNT % (AUTO) 4.93 % (0.5-2.3)
[2021-01-15 15:18] LABS: BILIRUBIN,TOTAL 3.6 mg/dL (0.2-1.0); CALCIUM 8.8 mg/dL (8.5-10.3); CREATININE 1.1 mg/dL (0.6-1.2); POTASSIUM 4.2 mmol/L (3.5-5.0); TOTAL PROTEIN 5.9 g/dL (6.7-8.2)
[2021-01-15 15:21] LABS: SLIDE REVIEW? Indicated
[2021-01-15 15:31] LABS: WHITE BLOOD COUNT 35.5 x10^3/uL (4.8-10.8)
[2021-01-15 18:37] LABS: DIFFERENTIAL COMMENT MANUAL=AUTO DIFF; PLATELET ESTIMATE, MANUAL INCREASED (>450,000) (NORMAL); PLATELET MORPHOLOGY NORMAL APPEARANCE (NORMAL); WBC MORPHOLOGY (MULTIPLE) 1+ SMUDGE CELLS (NORMAL)
[2021-01-15 18:41] LABS: BAND NEUTROPHILS % (MANUAL) 1 %; LYMPHOCYTES # (MANUAL) 22.4 10^3/uL (1.5-3.5); LYMPHOCYTES % (MANUAL) 63 %; MONOCYTES # (MANUAL) 0.7 10^3/uL (0.0-1.0); NEUTROPHILS # (MANUAL) 12.4 10^3/uL (1.5-6.6)
== END 2021-01-15 10:28 | disposition home or self-care (01) ==
LOC: LAB.S 10:27
PROVIDERS: ATTEND Internal Medicine Hematology & Oncology
DX: C91.10 Chronic lymphocytic leukemia of B-cell type not having achieved remission (principal)
CPT/HCPCS: 36415; 80053; 85025; 85045

== ENCOUNTER 2021-01-22 10:28 | Outpatient (CLI) | payer MEDICARE, OTHER ==
[2021-01-22 15:03] LABS: BASOPHILS % (AUTO) 0.2 %; EOSINOPHILS % (AUTO) 0.1 %; HCT - HEMATOCRIT 35.5 % (42.0-52.0); HGB - HEMOGLOBIN 10.6 g/dL (14.0-18.0); LYMPHOCYTES % (AUTO) 69.4 %; MEAN CORPUSCULAR HEMOGLOBIN 29.3 pg (27.0-31.0); MEAN CORPUSCULAR HGB CONC 29.9 g/dL (32.0-36.0); MEAN CORPUSCULAR VOLUME 98.1 fL (80.0-94.0); MEAN PLATELET VOLUME 9.6 fL (7.4-11.4); NEUTROPHILS % (AUTO) 21.4 %; PLT - PLATELET COUNT 367 10^3/uL (130-450); RED BLOOD COUNT 3.62 10^6/uL (4.70-6.10); RED CELL DISTRIBUTION WIDTH 15.2 % (12.0-15.0); WHITE BLOOD COUNT 29.6 x10^3/uL (4.8-10.8)
[2021-01-22 15:09] LABS: ALBUMIN 2.9 g/dL (3.2-5.5); CALCIUM 9.2 mg/dL (8.5-10.3); CREATININE 1.2 mg/dL (0.6-1.2); POTASSIUM 4.6 mmol/L (3.5-5.0); TOTAL PROTEIN 5.7 g/dL (6.7-8.2)
[2021-01-22 15:12] LABS: ABNORMAL LYMPHS % (MANUAL) 0 %; BAND NEUTROPHILS % (MANUAL) 0 %
[2021-01-22 15:44] LABS: LYMPHOCYTES # (MANUAL) 20.7 10^3/uL (1.5-3.5); LYMPHOCYTES % (MANUAL) 70 %; MONOCYTES # (MANUAL) 0.9 10^3/uL (0.0-1.0)
[2021-01-22 15:45] LABS: DIFFERENTIAL COMMENT MANUAL DIFFERENTIAL; PLATELET ESTIMATE, MANUAL NORMAL (130-450,000) (NORMAL); PLATELET MORPHOLOGY NORMAL APPEARANCE (NORMAL); RBC MORPHOLOGY (MULTIPLE) 1+ ANISOCYTOSIS (NORMAL); WBC MORPHOLOGY (MULTIPLE) NORMAL APPEARANCE (NORMAL)
== END 2021-01-22 10:29 | disposition home or self-care (01) ==
LOC: LAB.S 10:28
PROVIDERS: ATTEND Internal Medicine Hematology & Oncology
DX: C91.10 Chronic lymphocytic leukemia of B-cell type not having achieved remission (principal)
CPT/HCPCS: 36415; 80053; 85025

== ENCOUNTER 2021-01-24 12:03 | Outpatient (CLI) | payer MEDICARE, OTHER ==
[2021-01-24 12:26] LABS: BASOPHILS % (AUTO) 0.2 %; HCT - HEMATOCRIT 32.3 % (42.0-52.0); HGB - HEMOGLOBIN 10.1 g/dL (14.0-18.0); LYMPHOCYTES % (AUTO) 66.5 %; MEAN CORPUSCULAR HEMOGLOBIN 30.1 pg (27.0-31.0); MEAN CORPUSCULAR HGB CONC 31.3 g/dL (32.0-36.0); MEAN CORPUSCULAR VOLUME 96.1 fL (80.0-94.0); MEAN PLATELET VOLUME 9.2 fL (7.4-11.4); MONOCYTES % (AUTO) 8.3 %; NEUTROPHILS % (AUTO) 24.1 %; PLT - PLATELET COUNT 269 10^3/uL (130-450); RED BLOOD COUNT 3.36 10^6/uL (4.70-6.10); RED CELL DISTRIBUTION WIDTH 15.2 % (12.0-15.0); WHITE BLOOD COUNT 27.5 x10^3/uL (4.8-10.8)
[2021-01-24 12:29] LABS: ABNORMAL LYMPHS % (MANUAL) 0 %; BAND NEUTROPHILS % (MANUAL) 0 %
[2021-01-24 13:04] LABS: EOSINOPHILS # (MANUAL) 0.3 10^3/uL (0-0.7); LYMPHOCYTES # (MANUAL) 20.4 10^3/uL (1.5-3.5); LYMPHOCYTES % (MANUAL) 62 %; MONOCYTES # (MANUAL) 1.1 10^3/uL (0.0-1.0); NEUTROPHILS # (MANUAL) 5.8 10^3/uL (1.5-6.6); PLATELET ESTIMATE, MANUAL NORMAL (130-450,000) (NORMAL); PLATELET MORPHOLOGY NORMAL APPEARANCE (NORMAL); RBC MORPHOLOGY (MULTIPLE) NORMAL APPEARANCE (NORMAL); REACTIVE LYMPHS % (MANUAL) 12 %
[2021-01-24 13:05] LABS: DIFFERENTIAL COMMENT MANUAL DIFFERENTIAL; WBC MORPHOLOGY (MULTIPLE) NORMAL APPEARANCE (NORMAL)
[2021-01-24 13:12] LABS: ALBUMIN 2.8 g/dL (3.2-5.5); BILIRUBIN,TOTAL 2.8 mg/dL (0.2-1.0); CALCIUM 8.5 mg/dL (8.5-10.3); CREATININE 1.2 mg/dL (0.6-1.2); POTASSIUM 4.3 mmol/L (3.5-5.0); TOTAL PROTEIN 5.6 g/dL (6.7-8.2)
== END 2021-01-24 12:04 | disposition home or self-care (01) ==
LOC: LAB 12:03
PROVIDERS: ATTEND Surgery
DX: K80.42 Calculus of bile duct with acute cholecystitis without obstruction (principal)
CPT/HCPCS: 36415; 80053; 85025

== ENCOUNTER 2021-01-25 15:06 | Outpatient (CLI) | payer MEDICARE, OTHER ==
[2021-01-25] MEDS ORDERED: GADOBUTROL 7.5 MMOL/7.5 ML VIAL ONE (15:52)
[2021-01-25] MEDS ORDERED: GADOBUTROL 7.5 MMOL/7.5 ML VIAL IVP ONE (17:06)
--- NOTE | 2021-01-25 17:21 | MRI Report ---
PROCEDURE: MRCP W/WO INDICATIONS: CHOLEDOCHOLITHIASIS CONTRAST: IV CONTRAST: Gadavist ml: 7.2 TECHNIQUE: Coronal ultra fast SE through the abdomen, axial 2-D spoiled GE in- and [id number], and breath-hold T2 FSE with fat saturation through the biliary system and pancreas. Oblique coronal and axial thin- slice ultra fast SE, radial thick-slab ultra fast SE centered on the extrahepatic bile ducts. COMPARISON: CT abdomen and pelvis with contrast dated 01/03/2021, Limited abdominal ultrasound dated 01/03/2021, CT angiogram of the chest dated 01/07/2021 FINDINGS: Image quality: Excellent. Pancreas and biliary system: Intra- and extra-hepatic biliary ducts are non dilated. Pancreas is no rmal in morphology, without adjacent soft tissue edema. Pancreatic duct is normal in caliber, withou t developmental anomalies. Gallbladder has been resected. There is a collection in the gallbladder f laney which measures approximately 3.6 cm, consistent with a postoperative hematoma. Other solid organs: Liver and spleen are normal in size. Multiple hepatic cysts. No adrenal nodules . Both kidneys are normal in size, without hydronephrosis. Nodes and vessels: No retroperitoneal or mesenteric adenopathy by size criteria. Aorta and inferior vena cava are normal in size. Bowel and peritoneum: Unenhanced bowel loops are normal in caliber. Interval development of moderate ly large diffuse abdominal fluid. Lung bases: No basal pleural effusions. Heart size is normal. Bones and soft tissues: No ventral hernias. Bone marrow is of normal overall signal. IMPRESSION: 1. Interval cholecystectomy. 2. Postoperative hematoma in the gallbladder fossa. 3. Interval development of moderately large generalized abdominal fluid. Findings most likely represe nt a bile duct leak with development of bilius ascites. Comment: Consider paracentesis with evaluation of fluid for the presence of bile. Consider HIDA scan to identify the presence or absence of an ongoing bile leak. Reviewed by: Roe Vargas MD on 01/25/2021 5:20 PM PDT Approved by: Roe Vargas MD on 01/25/2021 5:20 PM PDT Station ID: [id number]
== END 2021-01-25 15:07 | disposition home or self-care (01) ==
LOC: DI 15:06
PROVIDERS: ATTEND Surgery
DX: Z90.49 Acquired absence of other specified parts of digestive tract (principal); K91.870 Postprocedural hematoma of a digestive system organ or structure following a digestive system procedure; R18.8 Other ascites
CPT/HCPCS: 74183; A9585

== ENCOUNTER 2021-01-26 12:05 | Outpatient (CLI) | payer MEDICARE, OTHER ==
[2021-01-26 11:40] LABS: INR 1.2 (0.8-1.2); PT - PROTHROMBIN TIME 13.8 secs (9.9-12.6)
[2021-01-26 11:47] LABS: PARTIAL THROMBOPLASTIN TIME 28.5 secs (24.9-33.3)
[2021-01-26] MEDS ORDERED: LACTATED RINGERS 1,000 ML IV ONE ×3 (12:41→14:20)
[2021-01-26 15:55] LABS: HCT - HEMATOCRIT 28.5 % (42.0-52.0); HGB - HEMOGLOBIN 8.9 g/dL (14.0-18.0); MEAN CORPUSCULAR HEMOGLOBIN 29.6 pg (27.0-31.0); MEAN CORPUSCULAR HGB CONC 31.2 g/dL (32.0-36.0); MEAN CORPUSCULAR VOLUME 94.7 fL (80.0-94.0); MEAN PLATELET VOLUME 9.3 fL (7.4-11.4); RED BLOOD COUNT 3.01 10^6/uL (4.70-6.10); RED CELL DISTRIBUTION WIDTH 15.2 % (12.0-15.0)
[2021-01-26 16:15] LABS: ALBUMIN 2.5 g/dL (3.2-5.5); BILIRUBIN,TOTAL 2.5 mg/dL (0.2-1.0); CALCIUM 8.3 mg/dL (8.5-10.3); CREATININE 1.1 mg/dL (0.6-1.2); POTASSIUM 4.1 mmol/L (3.5-5.0); TOTAL PROTEIN 5.1 g/dL (6.7-8.2)
[2021-01-26 16:39] VITALS: BP 135/46
--- NOTE | 2021-01-26 17:17 | CT Report ---
PROCEDURE: RETROPERITONEAL ABSC DRAIN INDICATIONS: ASCITES TECHNIQUE: The indications, alternatives, benefits, risks, and possible complications of the procedure were comm unicated to the patient. Informed written consent from the patient was obtained and placed in the art. For radiation dose reduction, the following was used: automated exposure control, adjustment o f mA and/or kV according to patient size. The patient was brought to the CT suite and food mixer repairer spiral CT imaging was performed with localization g rid. The appropriate site for percutaneous access to the drainage site was marked, was prepped and d raped sterilely, and was infused with local anaesthesia. Under CT guidance, a 15-gauge safety parace ntesis needle set was advanced in to the peritoneal cavity and fluid was aspirated for diagnostic nabila luation. The needle was withdrawn and catheter remained in place. A 0.035" curved soft guidewire was advanced through the catheter and the tract was dilated sequentially to accommodate pigtail drainage catheter. The guidewire was removed and the pigtail catheter tip was locked in place. The drainage ca theter was then secured in place with StayFix fixation device. The patient was sent for post-procedur e monitoring. COMPARISON: MRI dated 01/25/2021. FINDINGS: Access site: Right lateral abdomen Needle: 15 gauge paracentesis needle set with catheter. Number of passes: 1 Medications: 1% lidocaine for local anaesthesia. No conscious sedation used. Specimens: Approximately 60 mL of dark, clear yellow ascites was sent for evaluation. Complications: None. IMPRESSION: Successful CT-guided drainage catheter placement in the right lateral abdomen. Reviewed by: Henry Ashley MD on 01/26/2021 5:16 PM PDT Approved by: Henry Ashley MD on 01/26/2021 5:16 PM PDT Station ID: [id number]
== END 2021-01-26 12:06 | disposition home or self-care (01) ==
LOC: DI 12:05
PROVIDERS: ATTEND Surgery
DX: R18.8 Other ascites (principal)
CPT/HCPCS: 36415; 49406; 80053; 81599; 85027; 85610; 85730; 87070; 87205; J7120

== ENCOUNTER 2021-01-27 10:08 | Emergency (ER) | payer MEDICARE, OTHER ==
--- NOTE | 2021-01-27 12:15 | ED Physician Documentation ---
History of Present Illness - Stated complaint Stated Complaint: ABD PX - Chief complaint Chief Complaint: General - Additonal information Additional information: 86-year-old male presents the emergency department for evaluation of his periton eal drain. He underwent a cholecystectomy approximately 1 month ago. Yesterday in interventional radiology he had a right-sided peritoneal drain placed. He was discharged home but at home he and his could not get the bag to adequately drain. He denies that he is having any abdominal pain or fevers. The drainage tube appears well seated and there is no apparent drainage around the entrance site. He presents to the ER today and we are able to adequately open the twist valve at the bottom of the bag and nearly 1 L of yellow-brown bilious fluid drains out. Review of Systems Constitutional: denies: Fever, Chills Eyes: reports: Reviewed and negative Nose: reports: Reviewed and negative Throat: reports: Reviewed and negative Cardiac: reports: Reviewed and negative Respiratory: reports: Reviewed and negative GI: reports: Abdominal Pain : reports: Reviewed and negative Skin: reports: Reviewed and negative PD PAST MEDICAL HISTORY - Past Medical History Past Medical History: Yes Cardiovascular: Hypertension, High cholesterol, Coronary artery disease, Atrial fibrillation Respiratory: COPD Neuro: Peripheral neuropathy Endocrine/Autoimmune: None GI: GERD : None HEENT: None Psych: None Musculoskeletal: None Derm: None Other Past Medical History: CLL. bladder CA - Past Surgical History Past Surgical History: Yes General: Cholecystectomy, Other /INDEPENDENT INSURANCE ADJUSTER: Other Cardiovascular: Coronary stent - Present Medications Home Medications: Ambulatory Orders Medication Instructions Recorded Confirmed Aspirin 81 mg PO DAILY 04/29/18 01/27/21 B Complex W-C No.20/Folic Acid 1 cap PO DAILY 04/29/18 01/27/21 [Mynephron Capsule] Calcium Carbonate [Calcium] 600 mg PO DAILY 04/29/18 01/27/21 Nitroglycerin 0.4 mg SL Q5MIN PRN #40 tab.subl 04/29/18 01/27/21 Atorvastatin Calcium [Lipitor] 80 mg PO QPM 01/04/21 01/27/21 Multivitamin 1 tab PO DAILY 01/04/21 01/27/21 Loperamide [Imodium] 2 mg PO QID PRN #20 cap 01/12/21 01/27/21 Metoprolol Tartrate [Lopressor] 25 mg PO BID #60 tablet 01/12/21 01/27/21 Simethicone [Mylicon] 80 mg PO Q6HR PRN #20 tablet 01/12/21 01/27/21 - Allergies Allergies/Adverse Reactions: Allergies Allergy/AdvReac Type Severity Reaction Status Date / Time No Known Drug Allergies Allergy Verified 01/27/21 10:25 - Social History Does the pt smoke?: No Smoking Status: Former smoker Does the pt drink ETOH?: No Does the pt have substance abuse?: No - Immunizations Immunizations are current?: Yes PD ED PE EXPANDED - General General: Alert, No acute distress, Well developed/nourished - Cardiac Cardiac: Regular Rate, Radial strong equal, Pedal strong equal, Cap refill < 2 sec - Respiratory Respiratory: Clear to ausultation raman. No: Distress, Labored - Abdomen Abdomen: Normal Bowel sounds, Other (Periumbilical ecchymosis. Right sided peritoneal drain in place with drainage bag showing yellow-brown bilious fluid.) Results - Vitals Vitals: Vital Signs - 24 hr 01/27/21 01/27/21 01/27/21 10:22 11:26 12:23 Temperature 36.0 C L Heart Rate 90 70 74 Respiratory 16 18 18 Rate Blood Pressure 121/68 144/68 H 137/59 H O2 Saturation 97 100 97 Oxygen O2 Source Room air PD MEDICAL DECISION MAKING - ED course Complexity details: d/w patient, d/w devops consultant (Bry) ED course: 86-year-old male presents emergency department for evaluation of his right-sided peritoneal drain which was placed in IR yesterday. He reports that neither he nor his were able to successfully drain the bag of the fluid thus he presents to the ER. Here in the emergency department approximately 1000 mL of brown-yellow somewhat bilious fluid was adequately drained from the bag. Through reverse teaching the patient and his were able to drain the bag at bedside. Patient was also seen by on-call surgeon Dr. Londono. No further care interventions are necessitated today. Patient does have follow-up with surgery next week. Emergent return precautions discussed. Departure - Departure Disposition: 01 Home, Self Care Clinical Impression: Deficient knowledge of catheter care Condition: Stable Record reviewed to determine appropriate education?: Yes Comments: Addi the peritoneal drain appears to be in appropriate position and it is draining appropriately. Your was able to demonstrate the proper opening and closing of the bag. Continue to drain it at home and keep a record of the volumes for your follow-up appointment next week. If you develop any fevers, the catheter stops producing fluid or you are unable to get the bag to drain then please return to the ER for a second evaluation.
[2021-01-27 12:24] VITALS: BP 137/59
--- NOTE | 2021-01-27 12:39 | CONSULTATION NOTE ---
Surgery Consult - Consult Date Consult Date: 01/27/21 - Chief Complaint Chief Complaint: difficulty with bile drainage bag - Home Meds/Allergies Home Medications: Patient History Medication Instructions Recorded Confirmed Aspirin 81 mg PO DAILY 04/29/18 01/27/21 B Complex W-C No.20/Folic Acid 1 cap PO DAILY 04/29/18 01/27/21 [Mynephron Capsule] Calcium Carbonate [Calcium] 600 mg PO DAILY 04/29/18 01/27/21 Atorvastatin Calcium [Lipitor] 80 mg PO QPM 01/04/21 01/27/21 Multivitamin 1 tab PO DAILY 01/04/21 01/27/21 Allergies/Adverse Reactions: Allergies Allergy/AdvReac Type Severity Reaction Status Date / Time No Known Drug Allergies Allergy Verified 01/27/21 10:25 - Vital Signs Vital Signs: Last Vital Signs Temp 36.0 C L 01/27/21 10:22 Pulse 74 01/27/21 12:23 Resp 18 01/27/21 12:23 BP 137/59 H 01/27/21 12:23 Pulse Ox 97 01/27/21 12:23 - Consultation Note Consultation Note: This 86-year-old male comes in with his for evaluation of difficulty with the bile drainage bag placed yesterday by interventional radiology here. The says that last night the back was full and she tried to empty it to drain it but could not get the valve to open. This morning the valve was easily opened by the emergency room staff and I also went over the procedure for opening with the and had her demonstrate that she could easily drain the bile bag. The drainage from the bag is dilute bilious color. The laboratory test to see the level of bilirubin in the drained fluid has not returned yet. The patient is doing well with stable vital signs. The bile drainage catheter is taped down and the site is clean with no signs of bleeding.Abdomen is soft and nontender. I discussed the plan with the patient and his that we will wait for the laboratory results to return on the bile in the bile drainage bag. If the bilirubin concentration is greater than that in the serum we will pursue GI consultation at [facility] for ERCP. The patient has an appointment in [address] Bullard in the surgery clinic. The will empty the bile drainage bag whenever it is full.
== END 2021-01-27 13:25 | disposition home or self-care (01) ==
LOC: ED 10:08
DX: Z48.815 Encounter for surgical aftercare following surgery on the digestive system (principal); Z90.49 Acquired absence of other specified parts of digestive tract; I10 Essential (primary) hypertension; Z79.82 Long term (current) use of aspirin; Z87.891 Personal history of nicotine dependence
CPT/HCPCS: 99281